=== PATIENT | male | born 1955 | race Two or more races ===

== ENCOUNTER 2017-08-31 08:48 | Inpatient (IN) | payer OTHER ==
[2017-08-31 09:43] VITALS: BMI 23.4
--- NOTE | 2017-08-31 13:04 | HP ---
CIWA Score - CIWA Score Nausea/Vomitin (N/V/D) Muscle Tremors: 4-Moderate,w/Arms Extend Anxiety: 4-Mod. Anxious/Guarded Agitation: 0-Normal Activity Paroxysmal Sweats: 2 Orientation: 0-Oriented Tacttile Disturbances: 3-Moderate Itch/Numb/Burn Auditory Disturbances: 0-None Visual Disturbances: 0-None Headache: 2-Mild CIWA-Ar Total Score: 20 Admission ROS S - HPI Chief Complaint: DETOX TX FOR ALCOHOL DEPENDENCE Allergies/Adverse Reactions: Allergies Allergy/AdvReac Type Severity Reaction Status Date / Time No Known Allergies Allergy Verified 08/31/17 10:55 History of Present Illness: 62 Y/O H/M WITH A HX OF ALCOHOL DEPENDENCE SEEKING DETOX TX. PT IS ON MMTP. Exam Limitations: No Limitations - Ebola screening Have you traveled outside of the country in the last 21 days: No Have you had contact with anyone from an Ebola affected area: No Have you been sick,other than usual withdrawal symptoms: No - Review of Systems Constitutional: Chills, Loss of Appetite, Night Sweats, Changes in sleep, Unintentional Wgt. Loss EENT: reports: Blurred Vision, Tearing, Nose Congestion, Dental Problems ( MISSING TEETH) Respiratory: reports: No Symptoms reported Cardiac: reports: Lightheadedness GI: reports: Constipated, Diarrhea, Nausea, Poor Appetite, Poor Fluid Intake, Vomiting : reports: No Symptoms Reported Musculoskeletal: reports: Back Pain, Muscle Pain, Neck Pain Integumentary: reports: Dryness (AND SCALY FEET.) Neuro: reports: Headache, Numbness, Tingling, Tremors, Unsteady Gait, Dizziness Endocrine: reports: No Symptoms Reported Hematology: reports: No Symptoms Reported Psychiatric: reports: Orientated x3, Anxious, Depressed Other Systems: Reviewed and Negative Patient History - Patient Medical History Hx Anemia: No Hx Asthma: No Hx Chronic Obstructive Pulmonary Disease (COPD): No Hx Cardiac Disorders: No Hx Hypertension: Yes (FORGOT NAME) Hx Hypercholesterolemia: No HX Cerebrovascular Accident: No Hx Seizures: No Hx Diabetes: No Hx Gastrointestinal Disorders: No Hx Genitourinary Disorders: No Hx Sexually Transmitted Disorders: No (DENIES) Hx Renal Disease (ESRD): No Hx Human Immunodeficiency Virus (HIV): No (NEGATIVE HX) Hx Hepatitis C: Yes (NOT TREATED) Hx Depression: Yes (NOT CURRENTLY ON MED) Hx Suicide Attempt: No (DENIES) Hx Bipolar Disorder: No Hx Schizophrenia: No - Patient Surgical History Past Surgical History: Yes Hx Neurologic Surgery: No Hx Cataract Extraction: No Hx Cardiac Surgery: No Hx Lung Surgery: No Hx Breast Surgery: No Hx Breast Biopsy: No Hx Abdominal Surgery: Yes (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 in [facility].) Hx Appendectomy: No Hx Cholecystectomy: No Hx Genitourinary Surgery: No Hx Orthopedic Surgery: No Anesthesia Reaction: No - PPD History Previous Implant?: Yes Documented Results: Negative w/o proof Implanted On Prior [facility] Admission?: Yes Date: 04/15/12 Results: 0 mm PPD to be Administered?: Yes - Reproductive History Patient is a Female of Child Bearing Age (11 -55 yrs old): No (MALE) Patient : (N/A) - Smoking Cessation Smoking history: Current every day smoker Have you smoked in the past 12 months: Yes Aproximately how many cigarettes per day: 10 Cigars Per Day: 0 Hx Chewing Tobacco Use: No Initiated information on smoking cessation: Yes 'Breaking Loose' booklet given: 08/31/17 - Substance & Tx. History Hx Alcohol Use: Yes (VODKA/BEER) Hx Substance Use: No Substance Use Type: Alcohol Hx Substance Use Treatment: Yes (CURRENTLY IN [facility]) - Substances Abused Alcohol Route: Oral Frequency: Daily Amount used: 2 pints vodka/ 3 6pk beers Age of first use: 15 Date of Last Use: 08/31/17 Family Disease History - Family Disease History Family History: Denies Admission Physical Exam [facility] - Vital Signs Vital Signs: Vital Signs - 24 hr 08/31/17 09:41 Temperature 97.3 F L Pulse Rate 84 Respiratory 18 Rate Blood Pressure 160/109 - Physical General Appearance: Yes: Moderate Distress, Irritable, Anxious HEENTM: Yes: EOMI, Normocephalic, LORAINE, Pharynx Normal Respiratory: Yes: Chest Non-Tender, Lungs Clear, Normal Breath Sounds, No Respiratory Distress Neck: Yes: No masses,lesions,Nodules, Supple, Trachea in good position Breast: Yes: Breast Exam Deferred Cardiology: Yes: Regular Rhythm, Regular Rate, S1, S2 Abdominal: Yes: Normal Bowel Sounds, Non Tender, Soft Genitourinary: Yes: Other (N/C) Back: Yes: Within Normal Limits Musculoskeletal: Yes: full range of Motion, Gait Steady Extremities: Yes: Normal Range of Motion, Non-Tender Neurological: Yes: fire pilot II-XII NML intact, Fully Oriented, Alert, Motor Strength 5/5 Integumentary: Yes: Dry, Warm, Rash (DRY SCALY FEET-FOOT RASH) Lymphatic: Yes: Within Normal Limits - Diagnostic (1) Hepatitis C carrier Current Visit: Yes Status: Chronic (2) Nicotine dependence Current Visit: Yes Status: Active (3) Methadone maintenance therapy patient Current Visit: Yes Status: Chronic (4) Hypertension Current Visit: Yes Status: Chronic Qualifiers: Hypertension type: essential hypertension Qualified Code(s): I10 - Essential (primary) hypertension; I10 - Essential (primary) hypertension; I10 - Essential (primary) hypertension Comment: FORGOT NAME OF MEDICINE BUT LAST TOOK IT LAST WEEK. SEES DR CALVERT AT [facility](NOW [facility]). (5) Tinea pedis Current Visit: Yes Status: Chronic Qualifiers: Laterality: bilateral Qualified Code(s): B35.3 - Tinea pedis; B35.3 - Tinea pedis Cleared for Admission [facility] - Detox or Rehab [facility] Level of Care: Medically Managed Detox Regimen/Protocol: Librium [facility] Breath Alcohol Content Breath Alcohol Content: 0 Urine Drug Screen - Results Drug Screen Negative: No Urine Drug Screen Results: MTD-Methadone
[2017-08-31] MEDS ORDERED: MAGNESIUM HYDROX 2400MG/30ML ORAL SUSPENSION 30 ML CUP PO PRN (13:16)
[2017-08-31] MEDS ORDERED: ACETAMINOPHEN 325 MG TABLET (FP) PO PRN (13:16)
[2017-08-31] MEDS ORDERED: MAGNESIUM CITRATE 300 ML BOTTLE PO PRN (13:16)
[2017-08-31] MEDS ORDERED: guaiFENesin/D-METHORPHAN HB 10 ML UNIT-DOSE CUPS PO PRN (13:16)
[2017-08-31] MEDS ORDERED: LOPERAMIDE HCL 2 MG CAPSULE PO PRN (13:16)
[2017-08-31] MEDS ORDERED: P-EPHED 60MG/TRIPROLIDI 2.5MG TABLET PO PRN (13:16)
[2017-08-31] MEDS ORDERED: IBUPROFEN 400 MG TABLET (FP) PO PRN (13:16)
[2017-08-31] MEDS ORDERED: MENTHOL/PHENOL 1 EACH UD MM PRN (13:16)
[2017-08-31] MEDS ORDERED: NICOTINE POLACRILEX 2 MG GUM BUC PRN (13:16)
[2017-08-31] MEDS ORDERED: MAG HYDROX/AL HYDROX/SIMETH 30 ML UNIT-DOSE CUP PO PRN (13:16)
[2017-08-31] MEDS ORDERED: chlordiazePOXIDE HCL 25 MG CAPSULE PO PRN (13:16)
[2017-08-31] MEDS ORDERED: hydrOXYzine PAMOATE 25 MG CAPSULE (FP) PO PRN (13:16)
[2017-08-31] MEDS ORDERED: METHADONE HCL 10 MG TABLET PO ONE (14:00)
[2017-08-31] MEDS ORDERED: chlordiazePOXIDE HCL 25 MG CAPSULE PO ONE (14:00)
[2017-08-31] MEDS: amLODIPine BESYLATE 10 MG TABLET (FP) PO SCH (14:11)
[2017-08-31] MEDS: NICOTINE 14 MG/24 HOURS TOPICAL PATCH TD SCH (15:03)
--- NOTE | 2017-08-31 15:05 | CONSULT ---
[facility] Psychiatric Consult - Data Date of interview: 08/31/17 Admission source: [facility] Identifying data: Readmission to [facility] for this 62 y/o male seeking detox treatment on for alcohol dependence.Patient is , a father of two,undomiciled,unemployed and supported on SSI benefits. Substance Abuse History: Smoking history: Current every day smoker. Have you smoked in the past 12 months: Yes. Aproximately how many cigarettes per day: 10. Cigars Per Day: 0. Hx Chewing Tobacco Use: No. Initiated information on smoking cessation: Yes. 'Breaking Loose' booklet given: 08/31/17. - Substance & Tx. History. Hx Alcohol Use: Yes (VODKA/BEER). Hx Substance Use: No. Substance Use Type: Alcohol. Hx Substance Use Treatment: Yes (CURRENTLY IN [facility]). - Substances Abused. Alcohol. Route: Oral. Frequency: Daily. Amount used: 2 pints vodka/ 3 6pk beers. Age of first use: 15. Date of Last Use: 08/31/17 Medical History: Hypertension and hepatitis C. Psychiatric History: No history of psychiatric hospitalizations.Patient endorses MDD and Anxiety Disorder.Followed at [facility] (methadone maintenance : 50 mg/day).Patient is currently on seroquel 50 mg po hs.He denies history of suicide attempts. Physical/Sexual Abuse/Trauma History: Patient denies. Additional Comment: Drug Screen is negative. Mental Status Exam - Mental Status Exam Alert and Oriented to: Time, Place, Person Cognitive Function: Good Patient Appearance: Well Groomed Mood: Hopeful, Euthymic Affect: Appropriate, Normal Range Patient Behavior: Appropriate, Cooperative Speech Pattern: Clear (japanese-fluent) Voice Loudness: Normal Thought Process: Intact, Goal Oriented Thought Disorder: Not Present Hallucinations: Denies Suicidal Ideation: Denies Homicidal Ideation: Denies Insight/Judgement: Poor Sleep: Poorly, Difficulty falling asleep Appetite: Good Muscle strength/Tone: Normal Gait/Station: Normal Psychiatric Findings - Problem List ([place] 1, 2,3) (1) Opioid dependence on agonist therapy Current Visit: Yes Status: Acute (2) Alcohol dependence Current Visit: Yes Status: Active (3) Nicotine dependence Current Visit: Yes Status: Active (4) Substance induced mood disorder Current Visit: Yes Status: Acute (5) Hepatitis C carrier Current Visit: Yes Status: Chronic (6) Hypertension Current Visit: Yes Status: Chronic Qualifiers: Hypertension type: essential hypertension Qualified Code(s): I10 - Essential (primary) hypertension; I10 - Essential (primary) hypertension; I10 - Essential (primary) hypertension Comment: FORGOT NAME OF MEDICINE BUT LAST TOOK IT LAST WEEK. SEES DR CALVERT AT [facility](NOW [facility]). (7) Insomnia Current Visit: Yes Status: Acute - Initial Treatment Plan Initial Treatment Plan: Psychoeducation.Detoxification.Seroquel 50 mg po hs.Side effects/benefits are discussed with the patient.He agrees with this careplan.Observation.
[2017-08-31 16:11] LABS: MCHC 34.6 g/dl (32.0-35.9); MEAN CELL VOLUME 95.3 fl (80-96); MEAN PLT VOLUME 7.7 fl (7.5-11.1); PLATELET COUNT 310 K/MM3 (134-434); RDW 15.5 % (11.9-15.9); WHITE BLOOD COUNT 4.7 K/mm3 (4.0-10.0)
[2017-08-31 16:42] LABS: ALBUMIN 3.6 g/dl (3.4-5.0); ANION GAP 10 (8-16); CALCIUM 8.5 mg/dL (8.5-10.1); CO2 26 mmol/L (21-32); GLUCOSE,RANDOM 75 mg/dL (74-106); SGPT/ALT 38 U/L (12-78)
[2017-08-31 16:46] LABS: ALK PHOS 149 U/L (45-117); BILIRUBIN,TOTAL 0.3 mg/dL (0.2-1.0); CREATININE 0.9 mg/dL (0.7-1.3); SGOT/AST 60 U/L (15-37); TOT PROT 8.7 g/dl (6.4-8.2)
[2017-08-31 17:12] LABS: URINE APPEARANCE CLEAR; URINE BILIRUBIN NEGATIVE (NEGATIVE); URINE BLOOD NEGATIVE (NEGATIVE); URINE COLOR STRAW; URINE GLUCOSE (UA) NEGATIVE (NEGATIVE); URINE KETONE NEGATIVE (NEGATIVE); URINE NITRITE NEGATIVE (NEGATIVE); URINE PROTEIN NEGATIVE (NEGATIVE); URINE UROBILINOGEN NEGATIVE mg/dL (0.2-1.0)
[2017-08-31] MEDS: chlordiazePOXIDE HCL 25 MG CAPSULE PO SCH ×2 (17:25→22:16)
[2017-08-31] MEDS: TOLNAFTATE 1% CREAM 15 GM TUBE TP SCH (22:15)
[2017-08-31] MEDS: THIAMINE HCL 100 MG TABLET (FP) PO SCH (22:16)
[2017-08-31 22:21] LABS: URINE LEUK ESTERASE Negative (NEGATIVE)
--- NOTE | 2017-08-31 22:42 | PN ---
S Progress Note Note: patient feel nausea,zofran sl ordered,continue monitoring and detox regimen
[2017-08-31] MEDS: ONDANSETRON *ODT* 4 MG TABLET SL PRN (22:52)
[2017-09-01] MEDS ORDERED: METHADONE HCL 40 MG DISPERSABLE TABLET ONE (05:17)
[2017-09-01] MEDS ORDERED: METHADONE HCL 10 MG TABLET ONE (05:17)
[2017-09-01] MEDS ORDERED: METHADONE HCL 10 MG TABLET PO SCH (06:00)
[2017-09-01] MEDS: chlordiazePOXIDE HCL 25 MG CAPSULE PO SCH ×4 (06:26→22:16)
[2017-09-01] MEDS: METHADONE 40 MG, METHADONE 10 MG PO SCH (06:27)
[2017-09-01] MEDS: ONDANSETRON *ODT* 4 MG TABLET SL PRN (09:12)
[2017-09-01] MEDS ORDERED: cloNIDine HCL 0.1 MG TABLET PO ONE (09:30)
[2017-09-01] MEDS: TOLNAFTATE 1% CREAM 15 GM TUBE TP SCH ×2 (10:28→22:15)
[2017-09-01] MEDS: NICOTINE 14 MG/24 HOURS TOPICAL PATCH TD SCH (10:28)
[2017-09-01] MEDS: amLODIPine BESYLATE 10 MG TABLET (FP) PO SCH (10:28)
[2017-09-01] MEDS: PRENATAL VITAMINS W/ FOLIC ACID TABLET (FP) PO SCH (10:28)
--- NOTE | 2017-09-01 12:12 | PN ---
S CIWA - CIWA Score Nausea/Vomitin Muscle Tremors: 3 Anxiety: 5 Agitation: 4-Moderately Restless Paroxysmal Sweats: 3 Orientation: 2-Disoriented Date<2 days Tacttile Disturbances: 0-None Auditory Disturbances: 0-None Visual Disturbances: 0-None Headache: 3-Moderate CIWA-Ar Total Score: 25 S Progress Note (SOAP) Subjective: Sweating, Vomiting, Body Aches, Chills, Tremors, H/A, Anxious. Objective: PT. A & O X 2 (DISORIENTED ABOUT DAY / DATE). PT. OBSERVED AMBULATING ON UNIT. NO ACUTE DISTRESS. PT. DENIES CHEST PAIN. 09/01/17 12:13 Vital Signs Temperature 97.1 F L 09/01/17 09:42 Pulse Rate 70 09/01/17 09:42 Respiratory Rate 18 09/01/17 09:42 Blood Pressure 128/67 09/01/17 09:42 O2 Sat by Pulse Oximetry (%) Laboratory Tests 08/31/17 08/31/17 08/31/17 13:20 13:20 15:30 WBC 4.7 RBC 3.91 L Hgb 12.9 D Hct 37.3 MCV 95.3 MCH 33.0 MCHC 34.6 RDW 15.5 D Plt Count 310 D MPV 7.7 Sodium 137 Potassium 4.5 Chloride 101 Carbon Dioxide 26 Anion Gap 10 BUN 14 D Creatinine 0.9 D Creat Clearance w eGFR > 60 Random Glucose 75 D Calcium 8.5 Total Bilirubin 0.3 D AST 60 H D ALT 38 D Alkaline Phosphatase 149 H D Total Protein 8.7 H Albumin 3.6 Urine Color Straw Urine Appearance Clear Urine pH 5.0 Ur Specific [place] 1.010 Urine Protein Negative Urine Glucose (UA) Negative Urine Ketones Negative Urine Blood Negative Urine Nitrite Negative Urine Bilirubin Negative Urine Urobilinogen Negative Ur Leukocyte Esterase Negative LABS NOTED. RPR RESULT PENDING. 09/01/17 12:15 Assessment: 09/01/17 12:14 WITHDRAWAL SYMPTOMS. Plan: CONTINUE DETOX. PRN ZOFRAN SL FOR NAUSEA / VOMITING. CLONIDINE, 0.1 MG PO FOR DETOX SYMPTOMS. INCREASE DAILY PO FLUID INTAKE. REPEAT AP TOMORROW FOR ELEVATED ADMISSION VALUE.
--- NOTE | 2017-09-01 20:33 | EKG ---
Test Reason : Blood Pressure : / mmHG Vent. Rate : 066 BPM Atrial Rate : 066 BPM P-R Int : 144 ms QRS Dur : 072 ms QT Int : 384 ms P-R-T Axes : 053 041 035 degrees QTc Int : 402 ms NORMAL SINUS RHYTHM SEPTAL INFARCT , AGE UNDETERMINED CANNOT BE EXCLUDED ABNORMAL ECG NO PREVIOUS ECGS AVAILABLE Confirmed by RICO CALLES MD ([id number]) on 09/01/2017 8:33:40 PM Referred By: Confirmed By:RICO CALLES MD
[2017-09-01] MEDS: THIAMINE HCL 100 MG TABLET (FP) PO SCH (22:15)
[2017-09-01] MEDS: diphenhydrAMINE HCL 50 MG CAPSULE PO PRN (22:16)
[2017-09-02] MEDS ORDERED: METHADONE HCL 10 MG TABLET ONE (03:56)
[2017-09-02] MEDS ORDERED: METHADONE HCL 40 MG DISPERSABLE TABLET ONE (03:57)
[2017-09-02] MEDS: METHADONE 40 MG, METHADONE 10 MG PO SCH (06:17)
[2017-09-02] MEDS: chlordiazePOXIDE HCL 25 MG CAPSULE PO SCH ×2 (06:17→10:51)
[2017-09-02] MEDS: NICOTINE 14 MG/24 HOURS TOPICAL PATCH TD SCH (10:51)
[2017-09-02] MEDS: TOLNAFTATE 1% CREAM 15 GM TUBE TP SCH ×2 (10:51→22:26)
[2017-09-02] MEDS: PRENATAL VITAMINS W/ FOLIC ACID TABLET (FP) PO SCH (10:51)
[2017-09-02] MEDS: amLODIPine BESYLATE 10 MG TABLET (FP) PO SCH (10:51)
--- NOTE | 2017-09-02 11:19 | PN ---
[facility] CIWA - CIWA Score Nausea/Vomitin-No Nausea/No Vomiting Muscle Tremors: 4-Moderate,w/Arms Extend Anxiety: 4-Mod. Anxious/Guarded Agitation: 4-Moderately Restless Paroxysmal Sweats: 1-Minimal Palms Moist Orientation: 0-Oriented Tacttile Disturbances: 3-Moderate Itch/Numb/Burn Auditory Disturbances: 0-None Visual Disturbances: 0-None Headache: 0-None Present CIWA-Ar Total Score: 16 BHS Progress Note (SOAP) Subjective: ANXIETY,SWEATS,IRRITABILITY. PT REPORTS VOMITING YESTERDAY BUT DENIES TODAY. Objective: 09/02/17 11:15 Vital Signs Temperature 98.2 F 09/02/17 09:52 Pulse Rate 75 09/02/17 09:52 Respiratory Rate 18 09/02/17 09:52 Blood Pressure 154/78 09/02/17 09:52 O2 Sat by Pulse Oximetry (%) Laboratory Last Values WBC 4.7 K/mm3 (4.0-10.0) 08/31/17 13:20 RBC 3.91 M/mm3 (4.00-5.60) L 08/31/17 13:20 Hgb 12.9 GM/dL (11.7-16.9) D 08/31/17 13:20 Hct 37.3 % (35.4-49) 08/31/17 13:20 MCV 95.3 fl (80-96) 08/31/17 13:20 MCH 33.0 pg (25.7-33.7) 08/31/17 13:20 MCHC 34.6 g/dl (32.0-35.9) 08/31/17 13:20 RDW 15.5 % (11.9-15.9) D 08/31/17 13:20 Plt Count 310 K/MM3 (134-434) D 08/31/17 13:20 MPV 7.7 fl (7.5-11.1) 08/31/17 13:20 Sodium 137 mmol/L (136-145) 08/31/17 13:20 Potassium 4.5 mmol/L (3.5-5.1) 08/31/17 13:20 Chloride 101 mmol/L (98-107) 08/31/17 13:20 Carbon Dioxide 26 mmol/L (21-32) 08/31/17 13:20 Anion Gap 10 (8-16) 08/31/17 13:20 BUN 14 mg/dL (7-18) D 08/31/17 13:20 Creatinine 0.9 mg/dL (0.7-1.3) D 08/31/17 13:20 Creat Clearance w eGFR > 60 (>60) 08/31/17 13:20 Random Glucose 75 mg/dL (74-106) D 08/31/17 13:20 Calcium 8.5 mg/dL (8.5-10.1) 08/31/17 13:20 Total Bilirubin 0.3 mg/dL (0.2-1.0) D 08/31/17 13:20 AST 60 U/L (15-37) H D 08/31/17 13:20 ALT 38 U/L (12-78) D 08/31/17 13:20 Alkaline Phosphatase 149 U/L (45-117) H D 08/31/17 13:20 Total Protein 8.7 g/dl (6.4-8.2) H 08/31/17 13:20 Albumin 3.6 g/dl (3.4-5.0) 08/31/17 13:20 Urine Color Straw 08/31/17 15:30 Urine Appearance Clear 08/31/17 15:30 Urine pH 5.0 (5.0-8.0) 08/31/17 15:30 Ur Specific [place] 1.010 (1.005-1.025) 08/31/17 15:30 Urine Protein Negative (NEGATIVE) 08/31/17 15:30 Urine Glucose (UA) Negative (NEGATIVE) 08/31/17 15:30 Urine Ketones Negative (NEGATIVE) 08/31/17 15:30 Urine Blood Negative (NEGATIVE) 08/31/17 15:30 Urine Nitrite Negative (NEGATIVE) 08/31/17 15:30 Urine Bilirubin Negative (NEGATIVE) 08/31/17 15:30 Urine Urobilinogen Negative mg/dL (0.2-1.0) 08/31/17 15:30 Ur Leukocyte Esterase Negative (NEGATIVE) 08/31/17 15:30 RPR Titer Nonreactive (NONREACTIVE) 08/31/17 13:20 Assessment: 09/02/17 11:15 WITHDRAWAL SX Plan: CONTINUE DETOX
[2017-09-02] MEDS: chlordiazePOXIDE 5 MG CAPSULE PO SCH ×2 (17:28→22:06)
[2017-09-02] MEDS: diphenhydrAMINE HCL 50 MG CAPSULE PO PRN (22:06)
[2017-09-02] MEDS: THIAMINE HCL 100 MG TABLET (FP) PO SCH (22:06)
[2017-09-03] MEDS ORDERED: METHADONE HCL 10 MG TABLET ONE (04:03)
[2017-09-03] MEDS ORDERED: METHADONE HCL 40 MG DISPERSABLE TABLET ONE (04:03)
[2017-09-03] MEDS: chlordiazePOXIDE 5 MG CAPSULE PO SCH ×2 (05:59→10:49)
[2017-09-03] MEDS: METHADONE 40 MG, METHADONE 10 MG PO SCH (06:00)
[2017-09-03] MEDS: amLODIPine BESYLATE 10 MG TABLET (FP) PO SCH (10:49)
[2017-09-03] MEDS: NICOTINE 14 MG/24 HOURS TOPICAL PATCH TD SCH (10:49)
[2017-09-03] MEDS: ONDANSETRON *ODT* 4 MG TABLET SL PRN (10:49)
[2017-09-03] MEDS: PRENATAL VITAMINS W/ FOLIC ACID TABLET (FP) PO SCH (10:49)
--- NOTE | 2017-09-03 10:49 | PN ---
BHS Progress Note (SOAP) Subjective: DECREASED ANXIETY,SWEATS. ALERT O X 3. NAD. Objective: 09/03/17 10:48 Vital Signs Temperature 98.2 F 09/03/17 09:18 Pulse Rate 76 09/03/17 09:18 Respiratory Rate 16 09/03/17 09:18 Blood Pressure 115/72 09/03/17 09:18 O2 Sat by Pulse Oximetry (%) Laboratory Last Values WBC 4.7 K/mm3 (4.0-10.0) 08/31/17 13:20 RBC 3.91 M/mm3 (4.00-5.60) L 08/31/17 13:20 Hgb 12.9 GM/dL (11.7-16.9) D 08/31/17 13:20 Hct 37.3 % (35.4-49) 08/31/17 13:20 MCV 95.3 fl (80-96) 08/31/17 13:20 MCH 33.0 pg (25.7-33.7) 08/31/17 13:20 MCHC 34.6 g/dl (32.0-35.9) 08/31/17 13:20 RDW 15.5 % (11.9-15.9) D 08/31/17 13:20 Plt Count 310 K/MM3 (134-434) D 08/31/17 13:20 MPV 7.7 fl (7.5-11.1) 08/31/17 13:20 Sodium 137 mmol/L (136-145) 08/31/17 13:20 Potassium 4.5 mmol/L (3.5-5.1) 08/31/17 13:20 Chloride 101 mmol/L (98-107) 08/31/17 13:20 Carbon Dioxide 26 mmol/L (21-32) 08/31/17 13:20 Anion Gap 10 (8-16) 08/31/17 13:20 BUN 14 mg/dL (7-18) D 08/31/17 13:20 Creatinine 0.9 mg/dL (0.7-1.3) D 08/31/17 13:20 Creat Clearance w eGFR > 60 (>60) 08/31/17 13:20 Random Glucose 75 mg/dL (74-106) D 08/31/17 13:20 Calcium 8.5 mg/dL (8.5-10.1) 08/31/17 13:20 Total Bilirubin 0.3 mg/dL (0.2-1.0) D 08/31/17 13:20 AST 60 U/L (15-37) H D 08/31/17 13:20 ALT 38 U/L (12-78) D 08/31/17 13:20 Alkaline Phosphatase 155 U/L (45-117) H 09/02/17 07:00 Total Protein 8.7 g/dl (6.4-8.2) H 08/31/17 13:20 Albumin 3.6 g/dl (3.4-5.0) 08/31/17 13:20 Urine Color Straw 08/31/17 15:30 Urine Appearance Clear 08/31/17 15:30 Urine pH 5.0 (5.0-8.0) 08/31/17 15:30 Ur Specific [place] 1.010 (1.005-1.025) 08/31/17 15:30 Urine Protein Negative (NEGATIVE) 08/31/17 15:30 Urine Glucose (UA) Negative (NEGATIVE) 08/31/17 15:30 Urine Ketones Negative (NEGATIVE) 08/31/17 15:30 Urine Blood Negative (NEGATIVE) 08/31/17 15:30 Urine Nitrite Negative (NEGATIVE) 08/31/17 15:30 Urine Bilirubin Negative (NEGATIVE) 08/31/17 15:30 Urine Urobilinogen Negative mg/dL (0.2-1.0) 08/31/17 15:30 Ur Leukocyte Esterase Negative (NEGATIVE) 08/31/17 15:30 RPR Titer Nonreactive (NONREACTIVE) 08/31/17 13:20 Assessment: 09/03/17 10:48 DECREASED WITHDRAWAL SX Plan: CONTINUE DETOX
[2017-09-03] MEDS: TOLNAFTATE 1% CREAM 15 GM TUBE TP SCH ×2 (11:05→22:42)
[2017-09-03] MEDS: chlordiazePOXIDE HCL 10 MG CAPSULE PO SCH ×2 (17:11→22:13)
[2017-09-03] MEDS: THIAMINE HCL 100 MG TABLET (FP) PO SCH (22:13)
[2017-09-03] MEDS: diphenhydrAMINE HCL 50 MG CAPSULE PO PRN (22:14)
[2017-09-04] MEDS ORDERED: METHADONE HCL 10 MG TABLET ONE (03:53)
[2017-09-04] MEDS ORDERED: METHADONE HCL 40 MG DISPERSABLE TABLET ONE (03:54)
[2017-09-04] MEDS: chlordiazePOXIDE HCL 10 MG CAPSULE PO SCH ×2 (05:42→10:57)
[2017-09-04] MEDS: METHADONE 40 MG, METHADONE 10 MG PO SCH (05:42)
--- NOTE | 2017-09-04 08:29 | DS ---
[facility] Detox Discharge Summary Admission Date: 08/31/17 Discharge Date: 09/04/17 - History Present History: Alcohol Dependence, MMTP Pertinent Past History: nicotine dependence, anxiety, insominia, depression, ehp c htn - Physical Exam Results Vital Signs: Vital Signs Temperature 96.9 F L 09/04/17 06:12 Pulse Rate 81 09/04/17 06:12 Respiratory Rate 16 09/04/17 06:12 Blood Pressure 153/82 09/04/17 06:12 O2 Sat by Pulse Oximetry (%) Pertinent Admission Physical Exam Findings: withdrawal sx - Treatment Hospital Course: Detox Protocol Followed, Detoxed Safely, Responded well, Discharged Condition Good, Rehab Referral Accepted Patient has Accepted a Rehab Referral to: return to [facility] y - Medication Discharge Medications: Ambulatory Orders Amlodipine Besylate [Norvasc -] 10 mg PO DAILY 08/31/17 - Diagnosis (1) Alcohol dependence Current Visit: Yes Status: Active (2) Nicotine dependence Current Visit: Yes Status: Active (3) Insomnia Current Visit: Yes Status: Acute (4) Opioid dependence on agonist therapy Current Visit: Yes Status: Acute (5) Substance induced mood disorder Current Visit: Yes Status: Acute (6) Hepatitis C carrier Current Visit: Yes Status: Chronic (7) Hypertension Current Visit: Yes Status: Chronic Qualifiers: Hypertension type: essential hypertension Qualified Code(s): I10 - Essential (primary) hypertension; I10 - Essential (primary) hypertension; I10 - Essential (primary) hypertension (8) Methadone maintenance therapy patient Current Visit: Yes Status: Chronic (9) Tinea pedis Current Visit: Yes Status: Chronic Qualifiers: Laterality: bilateral Qualified Code(s): B35.3 - Tinea pedis; B35.3 - Tinea pedis - AMA Did Patient Leave Against Medical Advice: No
[2017-09-04] MEDS: PRENATAL VITAMINS W/ FOLIC ACID TABLET (FP) PO SCH (10:29)
[2017-09-04] MEDS: NICOTINE 14 MG/24 HOURS TOPICAL PATCH TD SCH (10:29)
[2017-09-04] MEDS: TOLNAFTATE 1% CREAM 15 GM TUBE TP SCH (10:29)
[2017-09-04] MEDS: amLODIPine BESYLATE 10 MG TABLET (FP) PO SCH (10:30)
[2017-09-04 10:34] VITALS: BP 127/73; PULSE 74; TEMP 97.7
[2017-09-04] MEDS ORDERED: CYCLOBENZAPRINE HCL 10 MG TABLET (FP) PO SCH (14:00)
== END 2017-09-04 03:05 | disposition other institution (70) | DRG 773 ==
LOC: YASAS 08:48 → Y3N 12:11
PROVIDERS: ADMIT Internal Medicine; ATTEND Internal Medicine
PROC: HZ2ZZZZ Detoxification Services for Substance Abuse Treatment (ICD-10-PCS; principal; 2017-08-31)
DX: F10.230 Alcohol dependence with withdrawal, uncomplicated (principal); F11.20 Opioid dependence, uncomplicated; F17.210 Nicotine dependence, cigarettes, uncomplicated; F19.24 Other psychoactive substance dependence with psychoactive substance-induced mood disorder; I10 Essential (primary) hypertension; G47.00 Insomnia, unspecified; B18.2 Chronic viral hepatitis C; B35.3 Tinea pedis
CPT/HCPCS: 36415; 71020-TC; 80053; 81003; 84075; 85027; 86593; 93005; 93010

== ENCOUNTER 2017-09-04 14:53 | Inpatient (IN) | payer OTHER ==
[2017-09-04] MEDS ORDERED: MENTHOL/PHENOL 1 EACH UD MM PRN (15:52)
[2017-09-04] MEDS ORDERED: MAGNESIUM CITRATE 300 ML BOTTLE PO PRN (15:52)
[2017-09-04] MEDS ORDERED: P-EPHED 60MG/TRIPROLIDI 2.5MG TABLET PO PRN (15:52)
[2017-09-04] MEDS ORDERED: guaiFENesin/D-METHORPHAN HB 10 ML UNIT-DOSE CUPS PO PRN (15:52)
[2017-09-04] MEDS ORDERED: NICOTINE POLACRILEX 2 MG GUM BUC PRN (15:52)
[2017-09-04] MEDS ORDERED: LOPERAMIDE HCL 2 MG CAPSULE PO PRN (15:52)
--- NOTE | 2017-09-04 15:57 | HP ---
[facility] Rehab Assess/Revision - Admission History Admitted to Rehab from: [facility] - Vital signs Vital Signs: T 98.3F BP 115/67 P 79 R 18 - Findings Detox History & Physical reviewed: Yes Concur with findings: Yes Inpatient Rehab Admission - Initial Determination Are CD services needed?: Yes Free of communicable disease: Yes Not in need of hospitalization: Yes - Rehab Admission Criteria Previous failed treatment: Yes Poor recovery environment: Yes Lacks judgement: Yes Patient is meeting Inpatient Rehab admission criteria:: Yes
[2017-09-04] MEDS: THIAMINE HCL 100 MG TABLET (FP) PO SCH (21:42)
[2017-09-04] MEDS: QUEtiapine FUMARATE 50 MG TABLET PO SCH (21:42)
[2017-09-05] MEDS ORDERED: METHADONE HCL 10 MG TABLET PO SCH (06:00)
[2017-09-05] MEDS ORDERED: METHADONE HCL 40 MG DISPERSABLE TABLET ONE (07:14)
[2017-09-05] MEDS ORDERED: METHADONE HCL 10 MG TABLET ONE (07:14)
[2017-09-05] MEDS: METHADONE 40 MG, METHADONE 10 MG PO SCH (07:15)
[2017-09-05] MEDS: PRENATAL VITAMINS W/ FOLIC ACID TABLET (FP) PO SCH (10:41)
[2017-09-05] MEDS: amLODIPine BESYLATE 10 MG TABLET (FP) PO SCH (10:41)
[2017-09-05] MEDS: QUEtiapine FUMARATE 50 MG TABLET PO SCH (22:09)
[2017-09-05] MEDS: THIAMINE HCL 100 MG TABLET (FP) PO SCH (22:09)
[2017-09-06] MEDS ORDERED: METHADONE HCL 10 MG TABLET ONE (03:16)
[2017-09-06] MEDS ORDERED: METHADONE HCL 40 MG DISPERSABLE TABLET ONE (03:17)
[2017-09-06] MEDS: METHADONE 40 MG, METHADONE 10 MG PO SCH (06:43)
[2017-09-06] MEDS: PRENATAL VITAMINS W/ FOLIC ACID TABLET (FP) PO SCH (10:21)
[2017-09-06] MEDS: amLODIPine BESYLATE 10 MG TABLET (FP) PO SCH (10:21)
[2017-09-06] MEDS: ACETAMINOPHEN 325 MG TABLET (FP) PO PRN (20:44)
[2017-09-06] MEDS: THIAMINE HCL 100 MG TABLET (FP) PO SCH (21:46)
[2017-09-06] MEDS: QUEtiapine FUMARATE 50 MG TABLET PO SCH (21:46)
[2017-09-07] MEDS ORDERED: METHADONE HCL 40 MG DISPERSABLE TABLET ONE (05:32)
[2017-09-07] MEDS ORDERED: METHADONE HCL 10 MG TABLET ONE (05:32)
[2017-09-07] MEDS: METHADONE 40 MG, METHADONE 10 MG PO SCH (06:27)
--- NOTE | 2017-09-07 10:29 | HP ---
Psychiatrist Admission - Data Date of interview: 09/07/17 Admission source: Transfer from [address] [place] [address] Identifying data: First admission to [address] for this 62 y/o male seeking rehabilitation treatment for alcohol dependence.Patient is ,a father of two,undomiciled,unemployed and supported on SSI benefits. Medical History: Hypertension,hepatitis C,lower back pain and arthritis (both hands). Psychiatric History: No history of psychiatric hospitalizations.Patient indicates that he sought psychiatric care as early as 2000 to address depression and anxiety.Used to be on lexapro and trazodone.Diagnosed with MDD.endorses MDD.Mr Phelps is currently under the care of Dr Chavarria,staff psychiatrist at [facility].Maintained on methadone 50 mg/day + seroquel 50 mg/ hs.Patient denies history of suicide attempts. Physical/Sexual Abuse/Trauma History: No reported history of abuse. Vital Signs: Vital Signs - 24 hr 09/07/17 09/07/17 09/07/17 00:30 03:30 07:11 Temperature 97.4 F L Pulse Rate 81 Respiratory 16 16 18 Rate Blood Pressure 132/80 Allergies/Adverse Reactions: Allergies Allergy/AdvReac Type Severity Reaction Status Date / Time No Known Allergies Allergy Verified 09/04/17 15:57 - Substance Abuse/Tx History Hx Alcohol Use: Yes (3 pints of vodka/day;onset/age 15;2x6 pack/beer;last use was on 08/31/17) Hx Substance Use: Yes (heroin,alcohol and nicotine) Substance Use Type: Alcohol, Heroin Hx Substance Use Treatment: Yes Mental Status Exam - Mental Status Exam Alert and Oriented to: Time, Place, Person Cognitive Function: Good Patient Appearance: Well Groomed Mood: Anxious, Apprehensive Affect: Mood Congruent Patient Behavior: Talkative, Appropriate, Cooperative Speech Pattern: Clear, Appropriate Voice Loudness: Normal Thought Process: Intact, Goal Oriented Thought Disorder: Not Present Hallucinations: Denies Suicidal Ideation: Denies Homicidal Ideation: Denies Insight/Judgement: Poor Sleep: Poorly, Difficulty falling asleep Appetite: Good Muscle strength/Tone: Normal Gait/Station: Normal Psychiatric Findings - Problem List ([place] 1, 2,3) (1) Alcohol dependence Current Visit: Yes Status: Active (2) Opioid dependence on agonist therapy Current Visit: Yes Status: Acute (3) Nicotine dependence Current Visit: Yes Status: Active (4) Substance induced mood disorder Current Visit: Yes Status: Acute (5) Depressive disorder Current Visit: Yes Status: Suspected (6) Hepatitis C carrier Current Visit: Yes Status: Chronic (7) Hypertension Current Visit: Yes Status: Chronic Qualifiers: Hypertension type: essential hypertension Qualified Code(s): I10 - Essential (primary) hypertension; I10 - Essential (primary) hypertension; I10 - Essential (primary) hypertension Comment: FORGOT NAME OF MEDICINE BUT LAST TOOK IT LAST WEEK. SEES DR CALVERT AT [facility](NOW [facility]). (8) Insomnia Current Visit: Yes Status: Acute - Initial Treatment Plan Initial Treatment Plan: Continue psychoeducation and support.Medications : seroquel 50 mg po hs + lexapro 5 mg po daily (started today).Side effects/ benefits are discussed with the patient.Mr Phelps is in agreement with this careplan.Observation.
[2017-09-07] MEDS: PRENATAL VITAMINS W/ FOLIC ACID TABLET (FP) PO SCH (10:31)
[2017-09-07] MEDS: amLODIPine BESYLATE 10 MG TABLET (FP) PO SCH (10:52)
[2017-09-07] MEDS: ESCITALOPRAM OXALATE 10 MG TABLET (FP) PO SCH (12:03)
[2017-09-07] MEDS: MAG HYDROX/AL HYDROX/SIMETH 30 ML UNIT-DOSE CUP PO PRN (12:05)
[2017-09-07] MEDS: THIAMINE HCL 100 MG TABLET (FP) PO SCH (22:01)
[2017-09-07] MEDS: QUEtiapine FUMARATE 50 MG TABLET PO SCH (22:01)
[2017-09-08] MEDS ORDERED: METHADONE HCL 40 MG DISPERSABLE TABLET ONE (02:26)
[2017-09-08] MEDS ORDERED: METHADONE HCL 10 MG TABLET ONE (02:26)
[2017-09-08] MEDS: METHADONE 40 MG, METHADONE 10 MG PO SCH (06:55)
[2017-09-08] MEDS: amLODIPine BESYLATE 10 MG TABLET (FP) PO SCH (10:36)
[2017-09-08] MEDS: ESCITALOPRAM OXALATE 10 MG TABLET (FP) PO SCH (10:36)
[2017-09-08] MEDS: PRENATAL VITAMINS W/ FOLIC ACID TABLET (FP) PO SCH (10:36)
[2017-09-08] MEDS ORDERED: NICOTINE POLACRILEX 2 MG GUM BUC PRN (11:27)
--- NOTE | 2017-09-08 11:38 | PN ---
[facility] Progress Note Note: started on protonix for heart burn requesting nicotine patch and gum, ordered.
[2017-09-08] MEDS: PANTOPRAZOLE 40 MG TABLET (FP) PO SCH (12:49)
[2017-09-08] MEDS: NICOTINE 14 MG/24 HOURS TOPICAL PATCH TD SCH (12:49)
[2017-09-08] MEDS: THIAMINE HCL 100 MG TABLET (FP) PO SCH (21:42)
[2017-09-08] MEDS: ACETAMINOPHEN 325 MG TABLET (FP) PO PRN (21:42)
[2017-09-08] MEDS: QUEtiapine FUMARATE 50 MG TABLET PO SCH (21:42)
[2017-09-09] MEDS ORDERED: METHADONE HCL 10 MG TABLET ONE (03:16)
[2017-09-09] MEDS ORDERED: METHADONE HCL 40 MG DISPERSABLE TABLET ONE (03:16)
[2017-09-09] MEDS: METHADONE 40 MG, METHADONE 10 MG PO SCH (06:05)
[2017-09-09] MEDS: amLODIPine BESYLATE 10 MG TABLET (FP) PO SCH (10:36)
[2017-09-09] MEDS: PRENATAL VITAMINS W/ FOLIC ACID TABLET (FP) PO SCH (10:36)
[2017-09-09] MEDS: PANTOPRAZOLE 40 MG TABLET (FP) PO SCH (10:36)
[2017-09-09] MEDS: ESCITALOPRAM OXALATE 10 MG TABLET (FP) PO SCH (10:36)
[2017-09-09] MEDS: NICOTINE 14 MG/24 HOURS TOPICAL PATCH TD SCH (10:37)
[2017-09-09] MEDS: THIAMINE HCL 100 MG TABLET (FP) PO SCH (21:17)
[2017-09-09] MEDS: QUEtiapine FUMARATE 50 MG TABLET PO SCH (21:17)
[2017-09-10] MEDS ORDERED: METHADONE HCL 10 MG TABLET ONE (03:15)
[2017-09-10] MEDS ORDERED: METHADONE HCL 40 MG DISPERSABLE TABLET ONE (03:16)
[2017-09-10] MEDS: METHADONE 40 MG, METHADONE 10 MG PO SCH (06:07)
[2017-09-10] MEDS: ESCITALOPRAM OXALATE 10 MG TABLET (FP) PO SCH (09:59)
[2017-09-10] MEDS: NICOTINE 14 MG/24 HOURS TOPICAL PATCH TD SCH (09:59)
[2017-09-10] MEDS: PRENATAL VITAMINS W/ FOLIC ACID TABLET (FP) PO SCH (09:59)
[2017-09-10] MEDS: amLODIPine BESYLATE 10 MG TABLET (FP) PO SCH (09:59)
[2017-09-10] MEDS: IBUPROFEN 400 MG TABLET (FP) PO PRN ×2 (10:00→21:11)
[2017-09-10] MEDS: PANTOPRAZOLE 40 MG TABLET (FP) PO SCH (10:15)
[2017-09-10] MEDS: THIAMINE HCL 100 MG TABLET (FP) PO SCH (21:10)
[2017-09-10] MEDS: QUEtiapine FUMARATE 50 MG TABLET PO SCH (21:10)
[2017-09-11] MEDS ORDERED: METHADONE HCL 10 MG TABLET ONE (02:33)
[2017-09-11] MEDS ORDERED: METHADONE HCL 40 MG DISPERSABLE TABLET ONE (02:34)
[2017-09-11] MEDS: METHADONE 40 MG, METHADONE 10 MG PO SCH (06:49)
[2017-09-11] MEDS: PRENATAL VITAMINS W/ FOLIC ACID TABLET (FP) PO SCH (09:40)
[2017-09-11] MEDS: amLODIPine BESYLATE 10 MG TABLET (FP) PO SCH (09:41)
[2017-09-11] MEDS: ESCITALOPRAM OXALATE 10 MG TABLET (FP) PO SCH (09:41)
[2017-09-11] MEDS: PANTOPRAZOLE 40 MG TABLET (FP) PO SCH (09:41)
[2017-09-11] MEDS: NICOTINE 14 MG/24 HOURS TOPICAL PATCH TD SCH (10:00)
[2017-09-11] MEDS: THIAMINE HCL 100 MG TABLET (FP) PO SCH (21:16)
[2017-09-11] MEDS: QUEtiapine FUMARATE 50 MG TABLET PO SCH (21:16)
[2017-09-12] MEDS ORDERED: METHADONE HCL 10 MG TABLET ONE (04:02)
[2017-09-12] MEDS ORDERED: METHADONE HCL 40 MG DISPERSABLE TABLET ONE (04:02)
[2017-09-12] MEDS: METHADONE 40 MG, METHADONE 10 MG PO SCH (06:01)
[2017-09-12] MEDS: PANTOPRAZOLE 40 MG TABLET (FP) PO SCH (09:28)
[2017-09-12] MEDS: NICOTINE 14 MG/24 HOURS TOPICAL PATCH TD SCH (09:28)
[2017-09-12] MEDS: ESCITALOPRAM OXALATE 10 MG TABLET (FP) PO SCH (09:28)
[2017-09-12] MEDS: PRENATAL VITAMINS W/ FOLIC ACID TABLET (FP) PO SCH (09:28)
[2017-09-12] MEDS: amLODIPine BESYLATE 10 MG TABLET (FP) PO SCH (09:28)
[2017-09-12] MEDS: THIAMINE HCL 100 MG TABLET (FP) PO SCH (21:09)
[2017-09-12] MEDS: QUEtiapine FUMARATE 50 MG TABLET PO SCH (21:09)
[2017-09-13] MEDS ORDERED: METHADONE HCL 10 MG TABLET ONE (05:56)
[2017-09-13] MEDS ORDERED: METHADONE HCL 40 MG DISPERSABLE TABLET ONE (05:57)
[2017-09-13] MEDS ORDERED: METHADONE HCL 40 MG DISPERSABLE TABLET PO SCH (06:00)
[2017-09-13] MEDS: METHADONE 40 MG, METHADONE 10 MG PO SCH (06:03)
[2017-09-13] MEDS: PANTOPRAZOLE 40 MG TABLET (FP) PO SCH (09:40)
[2017-09-13] MEDS: amLODIPine BESYLATE 10 MG TABLET (FP) PO SCH (09:40)
[2017-09-13] MEDS: PRENATAL VITAMINS W/ FOLIC ACID TABLET (FP) PO SCH (09:41)
[2017-09-13] MEDS: ESCITALOPRAM OXALATE 10 MG TABLET (FP) PO SCH (09:41)
[2017-09-13] MEDS: NICOTINE 14 MG/24 HOURS TOPICAL PATCH TD SCH (09:41)
[2017-09-13] MEDS: QUEtiapine FUMARATE 50 MG TABLET PO SCH (21:16)
[2017-09-13] MEDS: THIAMINE HCL 100 MG TABLET (FP) PO SCH (21:16)
[2017-09-14] MEDS ORDERED: METHADONE HCL 40 MG DISPERSABLE TABLET ONE (03:14)
[2017-09-14] MEDS ORDERED: METHADONE HCL 10 MG TABLET ONE (03:14)
[2017-09-14] MEDS: METHADONE 40 MG, METHADONE 10 MG PO SCH (06:13)
[2017-09-14] MEDS: PRENATAL VITAMINS W/ FOLIC ACID TABLET (FP) PO SCH (09:35)
[2017-09-14] MEDS: amLODIPine BESYLATE 10 MG TABLET (FP) PO SCH (09:35)
[2017-09-14] MEDS: ESCITALOPRAM OXALATE 10 MG TABLET (FP) PO SCH (09:35)
[2017-09-14] MEDS: PANTOPRAZOLE 40 MG TABLET (FP) PO SCH (09:35)
[2017-09-14] MEDS: NICOTINE 14 MG/24 HOURS TOPICAL PATCH TD SCH (09:37)
[2017-09-14] MEDS: MAGNESIUM HYDROX 2400MG/30ML ORAL SUSPENSION 30 ML CUP PO PRN (09:38)
[2017-09-14] MEDS: MAG HYDROX/AL HYDROX/SIMETH 30 ML UNIT-DOSE CUP PO PRN (18:32)
[2017-09-14] MEDS: THIAMINE HCL 100 MG TABLET (FP) PO SCH (21:18)
[2017-09-14] MEDS: QUEtiapine FUMARATE 50 MG TABLET PO SCH (21:18)
[2017-09-15] MEDS ORDERED: METHADONE HCL 10 MG TABLET ONE (04:09)
[2017-09-15] MEDS ORDERED: METHADONE HCL 40 MG DISPERSABLE TABLET ONE (04:10)
[2017-09-15] MEDS: METHADONE 40 MG, METHADONE 10 MG PO SCH (05:59)
[2017-09-15] MEDS: ESCITALOPRAM OXALATE 10 MG TABLET (FP) PO SCH (09:47)
[2017-09-15] MEDS: amLODIPine BESYLATE 10 MG TABLET (FP) PO SCH (09:47)
[2017-09-15] MEDS: PANTOPRAZOLE 40 MG TABLET (FP) PO SCH (09:47)
[2017-09-15] MEDS: PRENATAL VITAMINS W/ FOLIC ACID TABLET (FP) PO SCH (09:47)
[2017-09-15] MEDS: NICOTINE 14 MG/24 HOURS TOPICAL PATCH TD SCH (09:48)
[2017-09-15] MEDS: THIAMINE HCL 100 MG TABLET (FP) PO SCH (21:07)
[2017-09-15] MEDS: QUEtiapine FUMARATE 50 MG TABLET PO SCH (21:07)
[2017-09-15] MEDS: MAGNESIUM HYDROX 2400MG/30ML ORAL SUSPENSION 30 ML CUP PO PRN (21:07)
[2017-09-16] MEDS: ACETAMINOPHEN 325 MG TABLET (FP) PO PRN (01:17)
[2017-09-16] MEDS: diphenhydrAMINE HCL 50 MG CAPSULE PO PRN (01:18)
[2017-09-16] MEDS ORDERED: METHADONE HCL 10 MG TABLET ONE (03:13)
[2017-09-16] MEDS ORDERED: METHADONE HCL 40 MG DISPERSABLE TABLET ONE (03:13)
[2017-09-16] MEDS: METHADONE 40 MG, METHADONE 10 MG PO SCH (08:29)
[2017-09-16] MEDS: PANTOPRAZOLE 40 MG TABLET (FP) PO SCH (09:47)
[2017-09-16] MEDS: amLODIPine BESYLATE 10 MG TABLET (FP) PO SCH (09:47)
[2017-09-16] MEDS: PRENATAL VITAMINS W/ FOLIC ACID TABLET (FP) PO SCH (09:47)
[2017-09-16] MEDS: NICOTINE 14 MG/24 HOURS TOPICAL PATCH TD SCH (09:48)
[2017-09-16] MEDS: ESCITALOPRAM OXALATE 10 MG TABLET (FP) PO SCH (09:48)
--- NOTE | 2017-09-16 15:17 | PN ---
S Progress Note (SOAP) Subjective: c/o chronic constipation x3 dasy on methadone with straining hard stool. chronic pain both shoulders bilaterally reports patch make si better. Objective: 09/16/17 15:14 Vital Signs - 24 hr 09/16/17 09/16/17 00:30 03:25 Respiratory 18 18 Rate abdo soft bs+ non tender no rebound or guarding no bony shoulder tenderness full rom pain on movement, no discoloration or swelling Assessment: 09/16/17 15:15 constipation 2/2 medication Plan: start colace 300mg qHS, senna x1 dose now. bilateral arhthritic shoulder pain llidoderm patch ordered
[2017-09-16] MEDS ORDERED: MAGNESIUM CITRATE 300 ML BOTTLE PO ONE ×2 (15:30→16:00)
[2017-09-16] MEDS: LIDOCAINE 5% TOPICAL PATCH TP SCH (15:36)
[2017-09-16] MEDS ORDERED: SENNOSIDES 8.6MG TABLET (FP) PO ONE (16:00)
[2017-09-16] MEDS: QUEtiapine FUMARATE 50 MG TABLET PO SCH (21:13)
[2017-09-16] MEDS: THIAMINE HCL 100 MG TABLET (FP) PO SCH (21:13)
[2017-09-16] MEDS: DOCUSATE SODIUM 100 MG CAPSULE (FP) PO SCH (21:13)
[2017-09-16] MEDS: LIDOCAINE PATCH REMOVAL MC SCH (21:14)
[2017-09-17] MEDS: diphenhydrAMINE HCL 50 MG CAPSULE PO PRN (00:57)
[2017-09-17] MEDS: ACETAMINOPHEN 325 MG TABLET (FP) PO PRN (00:57)
[2017-09-17] MEDS ORDERED: METHADONE HCL 10 MG TABLET ONE (03:19)
[2017-09-17] MEDS ORDERED: METHADONE HCL 40 MG DISPERSABLE TABLET ONE (03:20)
[2017-09-17] MEDS: METHADONE 40 MG, METHADONE 10 MG PO SCH (08:40)
[2017-09-17] MEDS: ESCITALOPRAM OXALATE 10 MG TABLET (FP) PO SCH (09:03)
[2017-09-17] MEDS: PANTOPRAZOLE 40 MG TABLET (FP) PO SCH (09:04)
[2017-09-17] MEDS: PRENATAL VITAMINS W/ FOLIC ACID TABLET (FP) PO SCH (09:04)
[2017-09-17] MEDS: amLODIPine BESYLATE 10 MG TABLET (FP) PO SCH (09:06)
[2017-09-17] MEDS: NICOTINE 14 MG/24 HOURS TOPICAL PATCH TD SCH (09:07)
[2017-09-17] MEDS: LIDOCAINE 5% TOPICAL PATCH TP SCH (09:07)
[2017-09-17] MEDS: THIAMINE HCL 100 MG TABLET (FP) PO SCH (21:08)
[2017-09-17] MEDS: DOCUSATE SODIUM 100 MG CAPSULE (FP) PO SCH (21:09)
[2017-09-17] MEDS: QUEtiapine FUMARATE 50 MG TABLET PO SCH (21:09)
[2017-09-17] MEDS: LIDOCAINE PATCH REMOVAL MC SCH (21:09)
[2017-09-18] MEDS: diphenhydrAMINE HCL 50 MG CAPSULE PO PRN (02:15)
[2017-09-18] MEDS ORDERED: METHADONE HCL 40 MG DISPERSABLE TABLET ONE (03:19)
[2017-09-18] MEDS ORDERED: METHADONE HCL 10 MG TABLET ONE (03:19)
[2017-09-18] MEDS: METHADONE 40 MG, METHADONE 10 MG PO SCH (06:55)
[2017-09-18] MEDS: PANTOPRAZOLE 40 MG TABLET (FP) PO SCH (09:47)
[2017-09-18] MEDS: PRENATAL VITAMINS W/ FOLIC ACID TABLET (FP) PO SCH (09:47)
[2017-09-18] MEDS: ESCITALOPRAM OXALATE 10 MG TABLET (FP) PO SCH (09:48)
[2017-09-18] MEDS: amLODIPine BESYLATE 10 MG TABLET (FP) PO SCH (09:48)
[2017-09-18] MEDS: NICOTINE 14 MG/24 HOURS TOPICAL PATCH TD SCH (09:49)
[2017-09-18] MEDS: LIDOCAINE 5% TOPICAL PATCH TP SCH (09:49)
[2017-09-18] MEDS: MAG HYDROX/AL HYDROX/SIMETH 30 ML UNIT-DOSE CUP PO PRN (19:58)
[2017-09-18] MEDS: DOCUSATE SODIUM 100 MG CAPSULE (FP) PO SCH (21:16)
[2017-09-18] MEDS: THIAMINE HCL 100 MG TABLET (FP) PO SCH (21:16)
[2017-09-18] MEDS: QUEtiapine FUMARATE 50 MG TABLET PO SCH (21:16)
[2017-09-18] MEDS: LIDOCAINE PATCH REMOVAL MC SCH (21:17)
[2017-09-19] MEDS ORDERED: METHADONE HCL 10 MG TABLET ONE (03:08)
[2017-09-19] MEDS ORDERED: METHADONE HCL 40 MG DISPERSABLE TABLET ONE (03:09)
[2017-09-19] MEDS: IBUPROFEN 400 MG TABLET (FP) PO PRN ×2 (06:28→21:06)
[2017-09-19] MEDS: METHADONE 40 MG, METHADONE 10 MG PO SCH ×2 (09:32→09:50)
[2017-09-19] MEDS: PRENATAL VITAMINS W/ FOLIC ACID TABLET (FP) PO SCH (09:33)
[2017-09-19] MEDS: PANTOPRAZOLE 40 MG TABLET (FP) PO SCH (09:33)
[2017-09-19] MEDS: amLODIPine BESYLATE 10 MG TABLET (FP) PO SCH (09:34)
[2017-09-19] MEDS: ESCITALOPRAM OXALATE 10 MG TABLET (FP) PO SCH (09:34)
[2017-09-19] MEDS: LIDOCAINE 5% TOPICAL PATCH TP SCH (09:35)
[2017-09-19] MEDS: NICOTINE 14 MG/24 HOURS TOPICAL PATCH TD SCH (09:35)
[2017-09-19] MEDS: QUEtiapine FUMARATE 50 MG TABLET PO SCH (21:04)
[2017-09-19] MEDS: THIAMINE HCL 100 MG TABLET (FP) PO SCH (21:04)
[2017-09-19] MEDS: LIDOCAINE PATCH REMOVAL MC SCH (21:04)
[2017-09-19] MEDS: DOCUSATE SODIUM 100 MG CAPSULE (FP) PO SCH (21:04)
[2017-09-20] MEDS ORDERED: METHADONE HCL 10 MG TABLET ONE (03:07)
[2017-09-20] MEDS ORDERED: METHADONE HCL 40 MG DISPERSABLE TABLET ONE (03:07)
[2017-09-20] MEDS: METHADONE 40 MG, METHADONE 10 MG PO SCH (06:19)
[2017-09-20] MEDS: NICOTINE 14 MG/24 HOURS TOPICAL PATCH TD SCH (09:40)
[2017-09-20] MEDS: PRENATAL VITAMINS W/ FOLIC ACID TABLET (FP) PO SCH (09:40)
[2017-09-20] MEDS: ESCITALOPRAM OXALATE 10 MG TABLET (FP) PO SCH (09:40)
[2017-09-20] MEDS: PANTOPRAZOLE 40 MG TABLET (FP) PO SCH (09:40)
[2017-09-20] MEDS: LIDOCAINE 5% TOPICAL PATCH TP SCH (09:41)
[2017-09-20] MEDS: amLODIPine BESYLATE 10 MG TABLET (FP) PO SCH (09:41)
[2017-09-20] MEDS: IBUPROFEN 400 MG TABLET (FP) PO PRN (17:55)
[2017-09-20] MEDS: LIDOCAINE PATCH REMOVAL MC SCH (21:06)
[2017-09-20] MEDS: DOCUSATE SODIUM 100 MG CAPSULE (FP) PO SCH (21:06)
[2017-09-20] MEDS: QUEtiapine FUMARATE 50 MG TABLET PO SCH (21:07)
[2017-09-20] MEDS: THIAMINE HCL 100 MG TABLET (FP) PO SCH (21:07)
[2017-09-20] MEDS: ACETAMINOPHEN 325 MG TABLET (FP) PO PRN (21:08)
[2017-09-21] MEDS: diphenhydrAMINE HCL 50 MG CAPSULE PO PRN (00:47)
[2017-09-21] MEDS ORDERED: METHADONE HCL 10 MG TABLET ONE (03:00)
[2017-09-21] MEDS ORDERED: METHADONE HCL 40 MG DISPERSABLE TABLET ONE (03:01)
[2017-09-21] MEDS: METHADONE 40 MG, METHADONE 10 MG PO SCH (06:21)
[2017-09-21] MEDS: LIDOCAINE 5% TOPICAL PATCH TP SCH (09:25)
[2017-09-21] MEDS: ESCITALOPRAM OXALATE 10 MG TABLET (FP) PO SCH (09:26)
[2017-09-21] MEDS: PANTOPRAZOLE 40 MG TABLET (FP) PO SCH (09:26)
[2017-09-21] MEDS: NICOTINE 14 MG/24 HOURS TOPICAL PATCH TD SCH (09:27)
[2017-09-21] MEDS: amLODIPine BESYLATE 10 MG TABLET (FP) PO SCH (09:27)
[2017-09-21] MEDS: PRENATAL VITAMINS W/ FOLIC ACID TABLET (FP) PO SCH (09:27)
[2017-09-21] MEDS: IBUPROFEN 400 MG TABLET (FP) PO PRN ×2 (10:27→21:13)
[2017-09-21] MEDS: THIAMINE HCL 100 MG TABLET (FP) PO SCH (21:13)
[2017-09-21] MEDS: QUEtiapine FUMARATE 50 MG TABLET PO SCH (21:13)
[2017-09-21] MEDS: LIDOCAINE PATCH REMOVAL MC SCH (21:14)
[2017-09-21] MEDS: DOCUSATE SODIUM 100 MG CAPSULE (FP) PO SCH (21:14)
[2017-09-22] MEDS: diphenhydrAMINE HCL 50 MG CAPSULE PO PRN (01:49)
[2017-09-22] MEDS ORDERED: METHADONE HCL 10 MG TABLET ONE (03:08)
[2017-09-22] MEDS ORDERED: METHADONE HCL 40 MG DISPERSABLE TABLET ONE (03:08)
[2017-09-22] MEDS: IBUPROFEN 400 MG TABLET (FP) PO PRN ×2 (03:36→10:15)
[2017-09-22] MEDS: METHADONE 40 MG, METHADONE 10 MG PO SCH (06:32)
[2017-09-22 06:35] VITALS: BP 99/61; PULSE 85; TEMP 98.3
[2017-09-22] MEDS: amLODIPine BESYLATE 10 MG TABLET (FP) PO SCH (09:41)
[2017-09-22] MEDS: ESCITALOPRAM OXALATE 10 MG TABLET (FP) PO SCH (09:41)
[2017-09-22] MEDS: PRENATAL VITAMINS W/ FOLIC ACID TABLET (FP) PO SCH (09:41)
[2017-09-22] MEDS: PANTOPRAZOLE 40 MG TABLET (FP) PO SCH (09:41)
[2017-09-22] MEDS: LIDOCAINE 5% TOPICAL PATCH TP SCH (09:41)
[2017-09-22] MEDS: NICOTINE 14 MG/24 HOURS TOPICAL PATCH TD SCH (09:42)
--- NOTE | 2017-09-22 10:10 | PN ---
Psychiatric Progress Note Vital Signs: Vital Signs Period Temp Pulse Resp BP Sys/Martínez Pulse Ox Last 24 Hr 98.3 F 85 16-16 99/61 Date of Session: 09/22/17 Chief Complaint:: discharge visit HPI: Patient has addressed alcohol, nicotine, opioid , nicotine dependence comorbid substance induced mood disorder and depressive disorder. ROS: Hypertension,hepatitis C,lower back pain and arthritis medically managed. Current Medications: Active Medications Generic Name Dose Route Start Last Admin Trade Name Freq PRN Reason Stop Dose Admin Acetaminophen 650 mg 09/04/17 15:52 09/20/17 21:08 Tylenol - PO 650 mg Q4H PRN Administration FEVER OR PAIN Al Hydroxide/Mg Hydroxide 30 ml 09/04/17 15:52 09/18/17 19:58 Mylanta Oral Suspension - PO 30 ml Q6H PRN Administration DYSPEPSIA Amlodipine Besylate 10 mg 09/05/17 10:00 09/22/17 09:41 Norvasc - PO 10 mg DAILY BRITTANY Administration Diphenhydramine HCl 50 mg 09/04/17 15:52 09/22/17 01:49 Benadryl - PO 50 mg HSMR1 PRN Administration FOR ITCHING Docusate Sodium 300 mg 09/16/17 22:00 09/21/17 21:14 Colace - PO Not Given HS [facility] Escitalopram Oxalate 5 mg 09/07/17 12:15 09/22/17 09:41 Lexapro - PO 5 mg DAILY BRITTANY Administration Eucalyptus/Menthol/Phenol/Sorbitol 1 each 09/04/17 15:52 Cepastat Lozenge - MM Q4H PRN SORE THROAT Guaifenesin 10 ml 09/04/17 15:52 Robitussin Dm - PO Q6H PRN COUGH Ibuprofen 400 mg 09/04/17 15:52 09/22/17 03:36 Motrin - PO 400 mg Q6H PRN Administration PAIN Lidocaine 1 patch 09/16/17 16:00 09/22/17 09:41 Lidoderm Patch - TP Not Given DAILY BRITTANY Loperamide HCl 4 mg 09/04/17 15:52 Imodium - PO Q6H PRN DIARRHEA Magnesium Hydroxide 30 ml 09/04/17 15:52 09/15/17 21:07 Milk Of Magnesia - PO 30 ml DAILY PRN Administration CONSTIPATION Methadone HCl 40 mg/ Methadone 50 mg 09/19/17 07:00 09/22/17 06:32 HCl 10 mg PO 50 mg DAILY@0600 BRITTANY Administration Miscellaneous 1 each 09/16/17 22:00 09/21/17 21:14 Lidoderm Patch Removal MC 1 each DAILY@2200 BRITTANY Administration Nicotine 14 mg 09/08/17 12:03 09/22/17 09:42 Nicoderm Patch - TD Not Given DAILY BRITTANY Nicotine Polacrilex 2 mg 09/04/17 15:52 Nicorette Gum - BUC Q2H PRN NICOTINE REPLACEMENT RX Nicotine Polacrilex 2 mg 09/08/17 11:27 Nicorette Gum - BUC Q2H PRN NICOTINE REPLACEMENT RX Pantoprazole Sodium 40 mg 09/08/17 12:02 09/22/17 09:41 Protonix - PO 40 mg DAILY BRITTANY Administration Multivit/Folic Acid/Iron 1 tab 09/05/17 10:00 09/22/17 09:41 Vitamins (Sjr) - PO 1 tab DAILY BRITTANY Administration Pseudoephedrine/Triprolidine 1 combo 09/04/17 15:52 Actifed - PO TID PRN NASAL CONGESTION Quetiapine Fumarate 50 mg 09/04/17 22:00 09/21/17 21:13 Seroquel - PO 50 mg HS BRITTANY Administration Thiamine HCl 100 mg 09/04/17 22:00 09/21/17 21:13 Vitamin B1 - PO 100 mg HS BRITTANY Administration Current Side Effect: No Lab tests ordered: No Lab tests reviewed: Yes Provider note:: Patient has completed today his treatment and met his identified goals, will continue to address his issues at [facility] and will stay at [facility]. He verbalized his resolution to stay sober and adherent to every aspects of his aftercare plans. He understands the negative consequences of his addiction and importance of changing attitudes for utilization of supports to maintain recovery. Medicatio Seroquel well tolerated scripts for 30 days provided, patient is stable for discharge today. Total face to face time:: 35 Mental Status Exam - Mental Status Exam Alert and Oriented to: Time, Place, Person Cognitive Function: Good Patient Appearance: Well Groomed Mood: Hopeful Affect: Appropriate, Mood Congruent Patient Behavior: Appropriate, Cooperative Speech Pattern: Clear, Appropriate Voice Loudness: Normal Thought Process: Intact, Goal Oriented Thought Disorder: Not Present Hallucinations: Denies Suicidal Ideation: Denies Homicidal Ideation: Denies Insight/Judgement: Fair Sleep: Fair Appetite: Fair Muscle strength/Tone: Normal Gait/Station: Normal Psychiatric Treatment Plan - Problem List (1) Alcohol dependence Current Visit: Yes (2) Nicotine dependence Current Visit: Yes (3) Opioid dependence on agonist therapy Current Visit: Yes (4) Substance induced mood disorder Current Visit: Yes (5) Depressive disorder Current Visit: Yes
== END 2017-09-22 10:30 | disposition home or self-care (01) | DRG 772 ==
LOC: YASAS 14:53 → Y5N 14:54
PROVIDERS: ADMIT Internal Medicine; ATTEND Psychiatry & Neurology Psychiatry
PROC: HZ42ZZZ Group Counseling for Substance Abuse Treatment, Cognitive-Behavioral (ICD-10-PCS; principal; 2017-09-04)
DX: F11.20 Opioid dependence, uncomplicated (principal); F10.230 Alcohol dependence with withdrawal, uncomplicated; F17.210 Nicotine dependence, cigarettes, uncomplicated; F19.24 Other psychoactive substance dependence with psychoactive substance-induced mood disorder; F32.9 Major depressive disorder, single episode, unspecified; I10 Essential (primary) hypertension; G47.00 Insomnia, unspecified; B18.2 Chronic viral hepatitis C

== ENCOUNTER 2017-11-13 08:57 | Inpatient (IN) | payer OTHER ==
[2017-11-13 09:41] VITALS: BMI 25.0
--- NOTE | 2017-11-13 10:14 | HP ---
CIWA Score - CIWA Score Nausea/Vomitin Muscle Tremors: 3 Anxiety: 3 Agitation: 3 Paroxysmal Sweats: 3 Orientation: 0-Oriented Tacttile Disturbances: 2-Mild Itch/Numbness/Burn Auditory Disturbances: 0-None Visual Disturbances: 0-None Headache: 2-Mild CIWA-Ar Total Score: 19 Admission ROS S - [facility] Chief Complaint: alcohol withdrwal sx and urti Allergies/Adverse Reactions: Allergies Allergy/AdvReac Type Severity Reaction Status Date / Time No Known Allergies Allergy Verified 11/13/17 09:45 History of Present Illness: 62 yo m with h/o opioid use disorder on OTP 35mg daily, was not medicated today , [facility] because of alcohol withdrawal syndrome. no h/o seizures, no h/o DTs. also has URTI symptoms. Exam Limitations: No Limitations - Ebola screening Have you traveled outside of the country in the last 21 days: No (N) Have you had contact with anyone from an Ebola affected area: No Have you been sick,other than usual withdrawal symptoms: No Do you have a fever: No - Review of Systems Constitutional: Chills, Diaphoresis, Night Sweats, Changes in sleep, Unintentional Wgt. Loss EENT: reports: Nose Congestion, Throat Pain Respiratory: reports: Cough, SOB with Exertion Cardiac: reports: No Symptoms Reported GI: reports: Constipated, Diarrhea, Nausea, Poor Appetite, Poor Fluid Intake, Indigestion, Abdominal cramping : reports: No Symptoms Reported Musculoskeletal: reports: Back Pain, Joint Pain, Muscle Pain, Neck Pain Integumentary: reports: Flushing, Sweating Neuro: reports: Headache, Numbness, Tingling, Tremors Endocrine: reports: Increased Thirst Hematology: reports: No Symptoms Reported Psychiatric: reports: Judgement Intact, Mood/Affect Appropiate, Orientated x3, Anxious, Depressed Other Systems: Reviewed and Negative Patient History - Patient Medical History Hx Anemia: No Hx Asthma: No Hx Chronic Obstructive Pulmonary Disease (COPD): No Hx Cancer: No Hx Cardiac Disorders: No Hx Congestive Heart Failure: No Hx Hypertension: Yes Hx Hypercholesterolemia: No Hx Pacemaker: No HX Cerebrovascular Accident: No Hx Seizures: No Hx Dementia: No Hx Diabetes: No Hx Gastrointestinal Disorders: No Hx Liver Disease: Yes (liver mass resectd at [facility] 2017, has been losing wt since) Hx Genitourinary Disorders: No Hx Sexually Transmitted Disorders: No Hx Renal Disease (ESRD): No Hx Thyroid Disease: No Hx Human Immunodeficiency Virus (HIV): No (NEGATIVE HX) Hx Hepatitis C: Yes (NOT TREATED) Hx Depression: Yes Hx Suicide Attempt: No (no si at present) Hx Bipolar Disorder: No Hx Schizophrenia: No - Patient Surgical History Past Surgical History: Yes Hx Neurologic Surgery: No Hx Cataract Extraction: No Hx Cardiac Surgery: No Hx Lung Surgery: No Hx Breast Surgery: No Hx Breast Biopsy: No Hx Abdominal Surgery: Yes (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 in [facility].) Hx Appendectomy: No Hx Cholecystectomy: No Hx Genitourinary Surgery: No Hx Section: No Hx Orthopedic Surgery: No Hx Hysterectomy: No Anesthesia Reaction: No - PPD History Previous Implant?: Yes Documented Results: Positive w/proof Implanted On Prior [facility] Admission?: Yes Date: 09/02/17 Results: 0mm PPD to be Administered?: No - Reproductive History Patient is a Female of Child Bearing Age (11 -55 yrs old): No Patient : No - Smoking Cessation Smoking history: Current every day smoker Have you smoked in the past 12 months: Yes Aproximately how many cigarettes per day: 7 Cigars Per Day: 0 Hx Chewing Tobacco Use: No Initiated information on smoking cessation: Yes 'Breaking Loose' booklet given: 11/13/17 - Substance & Tx. History Hx Alcohol Use: Yes Hx Substance Use: Yes Substance Use Type: Alcohol, Heroin, Opiates Hx Substance Use Treatment: Yes ([facility], [facility]) - Substances Abused Alcohol Route: Oral Frequency: Daily Amount used: vodka(1 quart)/beer(10-15 24oz cans) Age of first use: 15 Date of Last Use: 11/13/17 Marijuana/Hashish Route: Smoking Frequency: 3-6 times per week Amount used: 2-3 joints Age of first use: 15 Date of Last Use: 11/11/17 Family Disease History - Family Disease History Family Disease History: [place]: Father Admission Physical Exam BHS - Vital Signs Vital Signs: Vital Signs - 24 hr 11/13/17 09:38 Temperature 97 F L Pulse Rate 94 H Respiratory 20 Rate Blood Pressure 166/92 - Physical General Appearance: Yes: Nourished, Appropriately Dressed, Disheveled, Mild Distress, Thin, Tremorous, Irritable, Sweating, Anxious HEENTM: Yes: EOMI, Hearing grossly Normal, Normocephalic, Normal Voice, LORAINE, Nasal Congestion, Rhinorrhea Respiratory: Yes: Within Normal Limits, Chest Non-Tender, Lungs Clear, Normal Breath Sounds, No Respiratory Distress, No Accessory Muscle Use Neck: Yes: Within Normal Limits, No masses,lesions,Nodules, Supple, Trachea in good position Breast: Yes: Breast Exam Deferred Cardiology: Yes: Within Normal Limits, Regular Rhythm, Regular Rate, S1, S2 Abdominal: Yes: Within Normal Limits, Normal Bowel Sounds, Non Tender, Flat, Soft Genitourinary: Yes: Within Normal Limits Back: Yes: Within Normal Limits, Normal Inspection Musculoskeletal: Yes: Within Normal Limits, full range of Motion, Gait Steady, Pelvis Stable Extremities: Yes: Normal Capillary Refill, Normal Range of Motion, Non-Tender, Tremors, Other (clubbing bilaterally) Neurological: Yes: case work aide II-XII NML intact, Fully Oriented, Alert, Motor Strength 5/5, Normal Response, Depressed Affect Integumentary: Yes: Normal Color, Warm, Diaphoresis, Moist, Track Devries (old, no recent idu) Lymphatic: Yes: Within Normal Limits - Addiitonal Findings: withdrawal sx - Diagnostic (1) Alcohol dependence with uncomplicated withdrawal Current Visit: Yes Status: Acute (2) Nicotine dependence Current Visit: No Status: Active (3) Opioid dependence on agonist therapy Current Visit: No Status: Acute (4) Substance induced mood disorder Current Visit: No Status: Acute (5) Hepatitis C carrier Current Visit: No Status: Chronic (6) Hypertension Current Visit: No Status: Chronic Qualifiers: Comment: FORGOT NAME OF MEDICINE BUT LAST TOOK IT LAST WEEK. SEES DR CALVERT AT [facility](NOW [facility]). (7) Depressive disorder Current Visit: No Status: Suspected (8) Clubbing of nails Current Visit: Yes Status: Acute Cleared for Admission [facility] - Detox or Rehab [facility] Level of Care: Medically Managed Detox Regimen/Protocol: Librium [facility] Breath Alcohol Content Breath Alcohol Content: 0.022 Urine Drug Screen - Results Drug Screen Negative: No Urine Drug Screen Results: BZO-Benzodiazepines, MTD-Methadone
[2017-11-13] MEDS ORDERED: ACETAMINOPHEN 325 MG TABLET (FP) PO PRN (10:24)
[2017-11-13] MEDS ORDERED: MAG HYDROX/AL HYDROX/SIMETH 30 ML UNIT-DOSE CUP PO PRN (10:24)
[2017-11-13] MEDS ORDERED: MAGNESIUM CITRATE 300 ML BOTTLE PO PRN (10:24)
[2017-11-13] MEDS ORDERED: NICOTINE POLACRILEX 2 MG GUM BUC PRN (10:24)
[2017-11-13] MEDS ORDERED: P-EPHED 60MG/TRIPROLIDI 2.5MG TABLET PO PRN (10:24)
[2017-11-13] MEDS ORDERED: MAGNESIUM HYDROX 2400MG/30ML ORAL SUSPENSION 30 ML CUP PO PRN (10:24)
[2017-11-13] MEDS ORDERED: LOPERAMIDE HCL 2 MG CAPSULE PO PRN (10:24)
[2017-11-13] MEDS ORDERED: guaiFENesin/D-METHORPHAN HB 10 ML UNIT-DOSE CUPS PO PRN (10:24)
[2017-11-13] MEDS ORDERED: MENTHOL/PHENOL 1 EACH UD MM PRN (10:24)
[2017-11-13] MEDS ORDERED: chlordiazePOXIDE HCL 25 MG CAPSULE PO PRN (10:24)
[2017-11-13] MEDS ORDERED: hydrOXYzine PAMOATE 50 MG CAPSULE (FP) PO PRN (10:24)
[2017-11-13] MEDS ORDERED: METHADONE HCL 40 MG DISPERSABLE TABLET PO SCH (10:30)
[2017-11-13] MEDS ORDERED: chlordiazePOXIDE HCL 25 MG CAPSULE PO ONE (11:15)
[2017-11-13] MEDS ORDERED: METHADONE HCL 10 MG TABLET ONE (11:23)
[2017-11-13] MEDS ORDERED: METHADONE HCL 5 MG TABLET ONE (11:24)
[2017-11-13] MEDS: METHADONE 30 MG, METHADONE 5 MG PO SCH (11:38)
[2017-11-13] MEDS: amLODIPine BESYLATE 10 MG TABLET (FP) PO SCH (11:39)
[2017-11-13] MEDS: PANTOPRAZOLE 40 MG TABLET (FP) PO SCH (11:39)
[2017-11-13] MEDS: NICOTINE 14 MG/24 HOURS TOPICAL PATCH TD SCH (11:41)
[2017-11-13] MEDS: IBUPROFEN 400 MG TABLET (FP) PO PRN (13:37)
--- NOTE | 2017-11-13 14:17 | CONSULT ---
[facility] Psychiatric Consult - Data Date of interview: 11/13/17 Admission source: [facility] Identifying data: Another admission to [facility] for this 62 y/o [place] male seeking detox treatment on for alcohol dependence.Patient is ,a father of two,undomiciled,unemployed and supported on SSI benefits. Substance Abuse History: Confirmed by patient in this session.Details in current [facility] report : Smoking history: Current every day smoker. Have you smoked in the past 12 months: Yes. Aproximately how many cigarettes per day: 7. Cigars Per Day: 0. Hx Chewing Tobacco Use: No. Initiated information on smoking cessation: Yes. 'Breaking Loose' booklet given: 11/13/17. - Substance & Tx. History. Hx Alcohol Use: Yes. Hx Substance Use: Yes. Substance Use Type : Alcohol, Heroin, Opiates. Hx Substance Use Treatment: Yes ([facility], [facility]). - Substances Abused. Alcohol. Route: Oral. Frequency: Daily. Amount used: vodka(1 quart)/beer(10-15 24oz cans). Age of first use: 15. Date of Last Use: 11/13/17. Marijuana/Hashish. Route: Smoking. Frequency: 3-6 times per week. Amount used: 2-3 joints. Age of first use: 15. Date of Last Use: 11/11/17 Medical History: History of hepatic mass,hypertension,hepatitis C,lower back pain and arthritis (both hands). Psychiatric History: Patient denies history of psychiatric hospitalizations.Patient endorses the diagnoses of MDD and Anxiety Disorder.Mr Phelps is currently followed at [facility] (methadone maintenance : 35 mg/day) .Maintained on seroquel 50 mg po hs.Patient denies history of suicide attempts. Physical/Sexual Abuse/Trauma History: Patient denies. Additional Comment: Urine Drug Screen Results: BZO-Benzodiazepines, MTD- Methadone.Noted. Mental Status Exam - Mental Status Exam Alert and Oriented to: Time, Place, Person Cognitive Function: Good Patient Appearance: Unkempt, Disheveled Mood: Nervous, Anxious Affect: Mood Congruent Patient Behavior: Fatigued, Appropriate, Cooperative Speech Pattern: Clear, Appropriate (bilingual) Voice Loudness: Normal Thought Process: Intact, Goal Oriented Thought Disorder: Not Present Hallucinations: Denies Suicidal Ideation: Denies Homicidal Ideation: Denies Insight/Judgement: Poor Sleep: Poorly, Difficulty falling asleep Appetite: Good Muscle strength/Tone: Normal Gait/Station: Normal Psychiatric Findings - Problem List ([place] 1, 2,3) (1) Alcohol dependence with uncomplicated withdrawal Current Visit: Yes Status: Acute (2) Nicotine dependence Current Visit: Yes Status: Active (3) Opioid dependence on agonist therapy Current Visit: No Status: Acute (4) Substance induced mood disorder Current Visit: Yes Status: Acute (5) Depressive disorder Current Visit: No Status: Suspected (6) Insomnia Current Visit: Yes Status: Acute - Initial Treatment Plan Initial Treatment Plan: Previous records are reviewed.Psychoeducation.Sleep hygiene.Detoxification in progress.Medications : seroquel 50 mg po hs + lexapro 5 mg po daily.Side effects/benefits of both drugs are discussed with patient.Mr Phelps expresses his agrement to this plan of care.Observation.
[2017-11-13 16:54] LABS: URINE APPEARANCE CLEAR; URINE BILIRUBIN NEGATIVE (NEGATIVE); URINE BLOOD NEGATIVE (NEGATIVE); URINE COLOR STRAW; URINE GLUCOSE (UA) NEGATIVE (NEGATIVE); URINE KETONE NEGATIVE (NEGATIVE); URINE LEUK ESTERASE NEGATIVE (NEGATIVE); URINE NITRITE NEGATIVE (NEGATIVE); URINE PROTEIN NEGATIVE (NEGATIVE); URINE UROBILINOGEN NEGATIVE mg/dL (0.2-1.0)
[2017-11-13] MEDS: chlordiazePOXIDE HCL 25 MG CAPSULE PO SCH ×2 (17:14→22:13)
[2017-11-13] MEDS: QUEtiapine FUMARATE 50 MG TABLET PO SCH (22:12)
[2017-11-13] MEDS: THIAMINE HCL 100 MG TABLET (FP) PO SCH (22:13)
[2017-11-13] MEDS ORDERED: ONDANSETRON 8 MG TABLET (FP) PO PRN (22:15)
[2017-11-13] MEDS ORDERED: ONDANSETRON 4 MG TABLET PO PRN (22:33)
[2017-11-13] MEDS ORDERED: ONDANSETRON *ODT* 4 MG TABLET SL PRN (22:51)
[2017-11-14] MEDS ORDERED: METHADONE HCL 10 MG TABLET ONE (04:50)
[2017-11-14] MEDS ORDERED: METHADONE HCL 5 MG TABLET ONE (04:50)
[2017-11-14] MEDS: chlordiazePOXIDE HCL 25 MG CAPSULE PO SCH ×4 (05:26→22:24)
[2017-11-14] MEDS: METHADONE 30 MG, METHADONE 5 MG PO SCH (05:26)
[2017-11-14] MEDS: PRENATAL VITAMINS W/ FOLIC ACID TABLET (FP) PO SCH (10:15)
[2017-11-14] MEDS: amLODIPine BESYLATE 10 MG TABLET (FP) PO SCH (10:15)
[2017-11-14] MEDS: PANTOPRAZOLE 40 MG TABLET (FP) PO SCH (10:15)
[2017-11-14] MEDS: ESCITALOPRAM OXALATE 10 MG TABLET (FP) PO SCH (10:15)
[2017-11-14] MEDS: NICOTINE 14 MG/24 HOURS TOPICAL PATCH TD SCH (10:16)
[2017-11-14] MEDS: IBUPROFEN 400 MG TABLET (FP) PO PRN (10:19)
[2017-11-14 11:02] LABS: HEMATOCRIT 37.8 % (35.4-49); HEMOGLOBIN 12.4 GM/dL (11.7-16.9); MCHC 32.8 g/dl (32.0-35.9); MEAN CELL VOLUME 94.7 fl (80-96); MEAN PLT VOLUME 8.7 fl (7.5-11.1); PLATELET COUNT 276 K/MM3 (134-434); RBC 3.99 M/mm3 (4.00-5.60); RDW 15.2 % (11.9-15.9); WHITE BLOOD COUNT 5.9 K/mm3 (4.0-10.0)
[2017-11-14 11:05] LABS: ALBUMIN 3.7 g/dl (3.4-5.0); ANION GAP 7 (8-16); BLOOD UREA NITROGEN 7 mg/dL (7-18); CALCIUM 8.8 mg/dL (8.5-10.1); CHLORIDE 102 mmol/L (98-107); CO2 25 mmol/L (21-32); CREATININE 0.7 mg/dL (0.7-1.3); GLUCOSE,RANDOM 98 mg/dL (74-106); POTASSIUM 4.4 mmol/L (3.5-5.1); SGOT/AST 55 U/L (15-37); SGPT/ALT 30 U/L (12-78); SODIUM 134 mmol/L (136-145)
[2017-11-14 11:07] LABS: ALK PHOS 165 U/L (45-117); BILIRUBIN,TOTAL 0.6 mg/dL (0.2-1.0); TOT PROT 9.2 g/dl (6.4-8.2)
[2017-11-14] MEDS ORDERED: FLU VACCINE QUAD 60 MCG/0.5 ML (MDV 17-18) IM ONE (12:00)
--- NOTE | 2017-11-14 13:44 | EKG ---
Test Reason : Blood Pressure : / mmHG Vent. Rate : 078 BPM Atrial Rate : 078 BPM P-R Int : 144 ms QRS Dur : 082 ms QT Int : 352 ms P-R-T Axes : 057 044 045 degrees QTc Int : 401 ms NORMAL SINUS RHYTHM NORMAL ECG WHEN COMPARED WITH ECG OF 31-AUG-2017 14:16, CRITERIA FOR SEPTAL INFARCT ARE NO LONGER PRESENT Confirmed by ASHLEY CUNNINGHAM MD ([id number]) on 11/14/2017 1:44:28 PM Referred By: Confirmed By:ASHLEY CUNNINGHAM MD
--- NOTE | 2017-11-14 13:53 | PN ---
S CIWA - CIWA Score Nausea/Vomitin Muscle Tremors: 2 Anxiety: 2 Agitation: 2 Paroxysmal Sweats: 2 Orientation: 0-Oriented Tacttile Disturbances: 2-Mild Itch/Numbness/Burn Auditory Disturbances: 1-Very Mild Visual Disturbances: 2-Mild Sensitivity Headache: 1-Very Mild CIWA-Ar Total Score: 16 BHS Progress Note (SOAP) Subjective: Shakes, sweats,generalized pain,nausea Objective: 11/14/17 13:52 Vital Signs 11/14/17 11/14/17 06:21 09:48 Temperature 96.8 F L 97.4 F L Pulse Rate 57 L 83 Respiratory 16 18 Rate Blood Pressure 146/72 124/75 Laboratory Last Values WBC 5.9 K/mm3 (4.0-10.0) 11/14/17 05:40 RBC 3.99 M/mm3 (4.00-5.60) L 11/14/17 05:40 Hgb 12.4 GM/dL (11.7-16.9) 11/14/17 05:40 Hct 37.8 % (35.4-49) 11/14/17 05:40 MCV 94.7 fl (80-96) 11/14/17 05:40 MCH 31.0 pg (25.7-33.7) 11/14/17 05:40 MCHC 32.8 g/dl (32.0-35.9) 11/14/17 05:40 RDW 15.2 % (11.9-15.9) 11/14/17 05:40 Plt Count 276 K/MM3 (134-434) 11/14/17 05:40 MPV 8.7 fl (7.5-11.1) D 11/14/17 05:40 Sodium 134 mmol/L (136-145) L 11/14/17 05:40 Potassium 4.4 mmol/L (3.5-5.1) 11/14/17 05:40 Chloride 102 mmol/L (98-107) 11/14/17 05:40 Carbon Dioxide 25 mmol/L (21-32) 11/14/17 05:40 Anion Gap 7 (8-16) L 11/14/17 05:40 BUN 7 mg/dL (7-18) D 11/14/17 05:40 Creatinine 0.7 mg/dL (0.7-1.3) D 11/14/17 05:40 Creat Clearance w eGFR > 60 (>60) 11/14/17 05:40 Random Glucose 98 mg/dL (74-106) D 11/14/17 05:40 Calcium 8.8 mg/dL (8.5-10.1) 11/14/17 05:40 Total Bilirubin 0.6 mg/dL (0.2-1.0) D 11/14/17 05:40 AST 55 U/L (15-37) H 11/14/17 05:40 ALT 30 U/L (12-78) D 11/14/17 05:40 Alkaline Phosphatase 165 U/L (45-117) H 11/14/17 05:40 Total Protein 9.2 g/dl (6.4-8.2) H 11/14/17 05:40 Albumin 3.7 g/dl (3.4-5.0) 11/14/17 05:40 Urine Color Straw 11/13/17 14:40 Urine Appearance Clear 11/13/17 14:40 Urine pH 6.0 (5.0-8.0) 11/13/17 14:40 Ur Specific [place] 1.008 (1.001-1.035) 11/13/17 14:40 Urine Protein Negative (NEGATIVE) 11/13/17 14:40 Urine Glucose (UA) Negative (NEGATIVE) 11/13/17 14:40 Urine Ketones Negative (NEGATIVE) 11/13/17 14:40 Urine Blood Negative (NEGATIVE) 11/13/17 14:40 Urine Nitrite Negative (NEGATIVE) 11/13/17 14:40 Urine Bilirubin Negative (NEGATIVE) 11/13/17 14:40 Urine Urobilinogen Negative mg/dL (0.2-1.0) 11/13/17 14:40 Ur Leukocyte Esterase Negative (NEGATIVE) 11/13/17 14:40 RPR Titer Nonreactive (NONREACTIVE) 11/14/17 05:40 HIV 1&2 Antibody Screen Negative 11/13/17 11:30 HIV P24 Antigen Negative 11/13/17 11:30 Labs noted Assessment: 11/14/17 13:52 Withdrawal sx Plan: Continue detox
[2017-11-14] MEDS: QUEtiapine FUMARATE 50 MG TABLET PO SCH (22:24)
[2017-11-14] MEDS: THIAMINE HCL 100 MG TABLET (FP) PO SCH (22:24)
[2017-11-15] MEDS ORDERED: METHADONE HCL 10 MG TABLET ONE (05:24)
[2017-11-15] MEDS: METHADONE 30 MG, METHADONE 5 MG PO SCH (05:25)
[2017-11-15] MEDS ORDERED: METHADONE HCL 5 MG TABLET ONE (05:25)
[2017-11-15] MEDS: chlordiazePOXIDE HCL 25 MG CAPSULE PO SCH ×2 (05:25→10:25)
[2017-11-15] MEDS: ESCITALOPRAM OXALATE 10 MG TABLET (FP) PO SCH (10:24)
[2017-11-15] MEDS: PRENATAL VITAMINS W/ FOLIC ACID TABLET (FP) PO SCH (10:25)
[2017-11-15] MEDS: NICOTINE 14 MG/24 HOURS TOPICAL PATCH TD SCH (10:25)
[2017-11-15] MEDS: PANTOPRAZOLE 40 MG TABLET (FP) PO SCH (10:25)
[2017-11-15] MEDS: amLODIPine BESYLATE 10 MG TABLET (FP) PO SCH (10:25)
[2017-11-15] MEDS ORDERED: ONDANSETRON *ODT* 4 MG TABLET SL PRN (12:39)
--- NOTE | 2017-11-15 12:42 | PN ---
S CIWA - CIWA Score Nausea/Vomitin Muscle Tremors: 3 Anxiety: 3 Agitation: 3 Paroxysmal Sweats: 3 Orientation: 0-Oriented Tacttile Disturbances: 0-None Auditory Disturbances: 0-None Visual Disturbances: 0-None Headache: 0-None Present CIWA-Ar Total Score: 14 BHS Progress Note (SOAP) Subjective: Anxiety,tremors,sweating,interrupted sleep,restless Objective: 11/15/17 12:41 Vital Signs - 8 hr 11/15/17 11/15/17 06:21 09:56 Temperature 98.2 F 98.1 F Pulse Rate 87 82 Respiratory 16 16 Rate Blood Pressure 103/69 101/64 Laboratory Tests 11/13/17 11/13/17 11/14/17 11:30 14:40 05:40 WBC 5.9 RBC 3.99 L Hgb 12.4 Hct 37.8 MCV 94.7 MCH 31.0 MCHC 32.8 RDW 15.2 Plt Count 276 MPV 8.7 D Sodium Potassium Chloride Carbon Dioxide Anion Gap BUN Creatinine Creat Clearance w eGFR Random Glucose Calcium Total Bilirubin AST ALT Alkaline Phosphatase Total Protein Albumin Urine Color Straw Urine Appearance Clear Urine pH 6.0 Ur Specific [place] 1.008 Urine Protein Negative Urine Glucose (UA) Negative Urine Ketones Negative Urine Blood Negative Urine Nitrite Negative Urine Bilirubin Negative Urine Urobilinogen Negative Ur Leukocyte Esterase Negative RPR Titer HIV 1&2 Antibody Screen Negative HIV P24 Antigen Negative 11/14/17 11/14/17 05:40 05:40 WBC RBC Hgb Hct MCV MCH MCHC RDW Plt Count MPV Sodium 134 L Potassium 4.4 Chloride 102 Carbon Dioxide 25 Anion Gap 7 L BUN 7 D Creatinine 0.7 D Creat Clearance w eGFR > 60 Random Glucose 98 D Calcium 8.8 Total Bilirubin 0.6 D AST 55 H ALT 30 D Alkaline Phosphatase 165 H Total Protein 9.2 H Albumin 3.7 Urine Color Urine Appearance Urine pH Ur Specific [place] Urine Protein Urine Glucose (UA) Urine Ketones Urine Blood Urine Nitrite Urine Bilirubin Urine Urobilinogen Ur Leukocyte Esterase RPR Titer Nonreactive HIV 1&2 Antibody Screen HIV P24 Antigen labs noted Assessment: 11/15/17 12:41 Withdrawal sx. Plan: Continue detox
[2017-11-15] MEDS: chlordiazePOXIDE 5 MG CAPSULE PO SCH ×2 (16:57→22:28)
[2017-11-15] MEDS: QUEtiapine FUMARATE 50 MG TABLET PO SCH (22:28)
[2017-11-15] MEDS: THIAMINE HCL 100 MG TABLET (FP) PO SCH (22:28)
[2017-11-16] MEDS ORDERED: METHADONE HCL 10 MG TABLET ONE (04:20)
[2017-11-16] MEDS ORDERED: METHADONE HCL 5 MG TABLET ONE (04:21)
[2017-11-16] MEDS: METHADONE 30 MG, METHADONE 5 MG PO SCH (05:30)
[2017-11-16] MEDS: chlordiazePOXIDE 5 MG CAPSULE PO SCH ×2 (05:31→10:27)
[2017-11-16] MEDS: PRENATAL VITAMINS W/ FOLIC ACID TABLET (FP) PO SCH (10:27)
[2017-11-16] MEDS: amLODIPine BESYLATE 10 MG TABLET (FP) PO SCH (10:27)
[2017-11-16] MEDS: PANTOPRAZOLE 40 MG TABLET (FP) PO SCH (10:27)
[2017-11-16] MEDS: NICOTINE 14 MG/24 HOURS TOPICAL PATCH TD SCH (10:27)
[2017-11-16] MEDS: ESCITALOPRAM OXALATE 10 MG TABLET (FP) PO SCH (10:27)
[2017-11-16] MEDS ORDERED: BISACODYL 5 MG TABLET.DR (FP) PO ONE (10:30)
--- NOTE | 2017-11-16 12:21 | PN ---
BHS Progress Note (SOAP) Subjective: Stomach ache, constipation (request dulcolax, doesn't want citroma), nausea, interrupted sleep Objective: 11/16/17 12:20 Last Vital Signs Temp Pulse Resp BP Pulse Ox 98.1 F 77 16 127/70 11/16/17 11:09 11/16/17 11:09 11/16/17 11:09 11/16/17 11:09 Laboratory Tests 11/13/17 11/13/17 11/14/17 11:30 14:40 05:40 WBC 5.9 RBC 3.99 L Hgb 12.4 Hct 37.8 MCV 94.7 MCH 31.0 MCHC 32.8 RDW 15.2 Plt Count 276 MPV 8.7 D Sodium Potassium Chloride Carbon Dioxide Anion Gap BUN Creatinine Creat Clearance w eGFR Random Glucose Calcium Total Bilirubin AST ALT Alkaline Phosphatase Total Protein Albumin Urine Color Straw Urine Appearance Clear Urine pH 6.0 Ur Specific [place] 1.008 Urine Protein Negative Urine Glucose (UA) Negative Urine Ketones Negative Urine Blood Negative Urine Nitrite Negative Urine Bilirubin Negative Urine Urobilinogen Negative Ur Leukocyte Esterase Negative RPR Titer HIV 1&2 Antibody Screen Negative HIV P24 Antigen Negative 11/14/17 11/14/17 05:40 05:40 WBC RBC Hgb Hct MCV MCH MCHC RDW Plt Count MPV Sodium 134 L Potassium 4.4 Chloride 102 Carbon Dioxide 25 Anion Gap 7 L BUN 7 D Creatinine 0.7 D Creat Clearance w eGFR > 60 Random Glucose 98 D Calcium 8.8 Total Bilirubin 0.6 D AST 55 H ALT 30 D Alkaline Phosphatase 165 H Total Protein 9.2 H Albumin 3.7 Urine Color Urine Appearance Urine pH Ur Specific [place] Urine Protein Urine Glucose (UA) Urine Ketones Urine Blood Urine Nitrite Urine Bilirubin Urine Urobilinogen Ur Leukocyte Esterase RPR Titer Nonreactive HIV 1&2 Antibody Screen HIV P24 Antigen Labs noted Assessment: 11/16/17 12:20 Withdrawal symptoms Plan: Continue detox Encouraged to drink more water for hydration
[2017-11-16] MEDS: chlordiazePOXIDE HCL 10 MG CAPSULE PO SCH ×2 (17:26→22:29)
[2017-11-16] MEDS: THIAMINE HCL 100 MG TABLET (FP) PO SCH (22:29)
[2017-11-16] MEDS: QUEtiapine FUMARATE 50 MG TABLET PO SCH (22:29)
[2017-11-17] MEDS: chlordiazePOXIDE HCL 10 MG CAPSULE PO SCH ×2 (05:29→11:03)
[2017-11-17] MEDS ORDERED: METHADONE HCL 10 MG TABLET ONE (05:30)
[2017-11-17] MEDS: METHADONE 30 MG, METHADONE 5 MG PO SCH (05:31)
[2017-11-17] MEDS ORDERED: METHADONE HCL 5 MG TABLET ONE (05:31)
[2017-11-17] MEDS: ESCITALOPRAM OXALATE 10 MG TABLET (FP) PO SCH (11:03)
[2017-11-17] MEDS: PRENATAL VITAMINS W/ FOLIC ACID TABLET (FP) PO SCH (11:03)
[2017-11-17] MEDS: PANTOPRAZOLE 40 MG TABLET (FP) PO SCH (11:04)
[2017-11-17] MEDS: amLODIPine BESYLATE 10 MG TABLET (FP) PO SCH (11:04)
[2017-11-17] MEDS: NICOTINE 14 MG/24 HOURS TOPICAL PATCH TD SCH (11:04)
--- NOTE | 2017-11-17 13:03 | PN ---
S Progress Note (SOAP) Subjective: Diarrhea since yesterday (yesterday patient c/o constipation and requested dulcolax, now c/o diarrhea), vomited x 2 this morning, nausea, poor appetite Objective: 11/17/17 13:00 Last Vital Signs Temp Pulse Resp BP Pulse Ox 97.8 F 94 H 18 135/76 11/17/17 10:05 11/17/17 10:05 11/17/17 10:05 11/17/17 10:05 Laboratory Tests 11/13/17 11/13/17 11/14/17 11:30 14:40 05:40 WBC 5.9 RBC 3.99 L Hgb 12.4 Hct 37.8 MCV 94.7 MCH 31.0 MCHC 32.8 RDW 15.2 Plt Count 276 MPV 8.7 D Sodium Potassium Chloride Carbon Dioxide Anion Gap BUN Creatinine Creat Clearance w eGFR Random Glucose Calcium Total Bilirubin AST ALT Alkaline Phosphatase Total Protein Albumin Urine Color Straw Urine Appearance Clear Urine pH 6.0 Ur Specific [place] 1.008 Urine Protein Negative Urine Glucose (UA) Negative Urine Ketones Negative Urine Blood Negative Urine Nitrite Negative Urine Bilirubin Negative Urine Urobilinogen Negative Ur Leukocyte Esterase Negative RPR Titer HIV 1&2 Antibody Screen Negative HIV P24 Antigen Negative 11/14/17 11/14/17 05:40 05:40 WBC RBC Hgb Hct MCV MCH MCHC RDW Plt Count MPV Sodium 134 L Potassium 4.4 Chloride 102 Carbon Dioxide 25 Anion Gap 7 L BUN 7 D Creatinine 0.7 D Creat Clearance w eGFR > 60 Random Glucose 98 D Calcium 8.8 Total Bilirubin 0.6 D AST 55 H ALT 30 D Alkaline Phosphatase 165 H Total Protein 9.2 H Albumin 3.7 Urine Color Urine Appearance Urine pH Ur Specific [place] Urine Protein Urine Glucose (UA) Urine Ketones Urine Blood Urine Nitrite Urine Bilirubin Urine Urobilinogen Ur Leukocyte Esterase RPR Titer Nonreactive HIV 1&2 Antibody Screen HIV P24 Antigen Labs noted Assessment: 11/17/17 13:01 Withdrawal symptoms Plan: Continue detox Encouraged to drink lots of water (water pitcher ordered), continue ensure due to poor appetite
[2017-11-17 22:17] VITALS: PULSE 75
[2017-11-17] MEDS: THIAMINE HCL 100 MG TABLET (FP) PO SCH (22:20)
[2017-11-17] MEDS: QUEtiapine FUMARATE 50 MG TABLET PO SCH (22:20)
[2017-11-18] MEDS ORDERED: METHADONE HCL 10 MG TABLET ONE (04:10)
[2017-11-18] MEDS ORDERED: METHADONE HCL 5 MG TABLET ONE (04:11)
[2017-11-18] MEDS: METHADONE 30 MG, METHADONE 5 MG PO SCH (05:53)
[2017-11-18 06:55] VITALS: BP 95/65; TEMP 98.1
[2017-11-18] MEDS: PANTOPRAZOLE 40 MG TABLET (FP) PO SCH (09:14)
[2017-11-18] MEDS: NICOTINE 14 MG/24 HOURS TOPICAL PATCH TD SCH (09:14)
[2017-11-18] MEDS: ESCITALOPRAM OXALATE 10 MG TABLET (FP) PO SCH (09:14)
[2017-11-18] MEDS: amLODIPine BESYLATE 10 MG TABLET (FP) PO SCH (09:14)
--- NOTE | 2017-11-18 14:31 | DS ---
[facility] Detox Discharge Summary Admission Date: 11/13/17 Discharge Date: 11/18/17 - History Present History: Alcohol Dependence, Opioid Dependence Pertinent Past History: Hep C HTN Arthritis Nail Clubbing - Physical Exam Results Vital Signs: Vital Signs Temperature 98.1 F 11/18/17 06:54 Pulse Rate 75 11/18/17 06:54 Respiratory Rate 16 11/18/17 06:54 Blood Pressure 95/65 11/18/17 06:54 O2 Sat by Pulse Oximetry (%) - Treatment Hospital Course: Detox Protocol Followed, Detoxed Safely, Responded well, Discharged Condition Good, Rehab Referral Accepted Patient has Accepted a Rehab Referral to: [facility] - Medication Discharge Medications: Ambulatory Orders Amlodipine Besylate [Norvasc -] 10 mg PO DAILY #30 tablet 09/21/17 Escitalopram Oxalate [Lexapro -] 5 mg PO DAILY #30 tablet 09/21/17 Quetiapine Fumarate [Seroquel -] 50 mg PO HS #30 tablet 09/21/17 Escitalopram Oxalate [Lexapro -] 5 mg PO DAILY #30 tablet 11/13/17 Methadone [Dolophine -] 35 mg PO DAILY@0600 MDD 50 11/13/17 Quetiapine Fumarate [Seroquel -] 50 mg PO HS #30 tablet 11/13/17 - Diagnosis (1) Alcohol dependence with uncomplicated withdrawal Status: Acute (2) Clubbing of nails Status: Chronic (3) Substance induced mood disorder Status: Acute (4) Depressive disorder Status: Chronic (5) Hepatitis C carrier Status: Chronic (6) Hypertension Status: Chronic Qualifiers: Hypertension type: essential hypertension (7) Insomnia Status: Chronic (8) Methadone maintenance therapy patient Status: Chronic (9) Nicotine dependence Status: Chronic - AMA Did Patient Leave Against Medical Advice: No
== END 2017-11-18 08:59 | disposition home or self-care (01) | DRG 753 ==
LOC: YASAS 08:57 → Y3N 10:12
PROVIDERS: ADMIT Internal Medicine; ATTEND Internal Medicine
PROC: HZ2ZZZZ Detoxification Services for Substance Abuse Treatment (ICD-10-PCS; principal; 2017-11-13)
DX: F39 Unspecified mood [affective] disorder (principal); F11.20 Opioid dependence, uncomplicated; F10.230 Alcohol dependence with withdrawal, uncomplicated; F17.210 Nicotine dependence, cigarettes, uncomplicated; F33.9 Major depressive disorder, recurrent, unspecified; F19.24 Other psychoactive substance dependence with psychoactive substance-induced mood disorder; G47.00 Insomnia, unspecified; R68.3 Clubbing of fingers; I10 Essential (primary) hypertension; B18.2 Chronic viral hepatitis C; K21.9 Gastro-esophageal reflux disease without esophagitis; R19.8 Other specified symptoms and signs involving the digestive system and abdomen
CPT/HCPCS: 36415; 80053; 81003; 85027; 86593; 87389; 93005; 93010

== ENCOUNTER 2018-01-18 08:30 | Inpatient (IN) | payer OTHER ==
[2018-01-18 09:43] VITALS: BMI 24.7
--- NOTE | 2018-01-18 13:29 | HP ---
CIWA Score - CIWA Score Nausea/Vomitin Muscle Tremors: 3 Anxiety: 3 Agitation: 3 Paroxysmal Sweats: 1-Minimal Palms Moist Orientation: 0-Oriented Tacttile Disturbances: 1-Very Mild Itch/Numbness Auditory Disturbances: 1-Very Mild Visual Disturbances: 0-None Headache: 2-Mild CIWA-Ar Total Score: 17 Admission ROS BHS - HPI Chief Complaint: i need help to stop drinking alcohol Allergies/Adverse Reactions: Allergies Allergy/AdvReac Type Severity Reaction Status Date / Time No Known Allergies Allergy Verified 01/18/18 10:54 History of Present Illness: this 62 years old male with alcohol dependence,mmtp 50 mgs/day,last mediated 09/26,seeking detox,withdrawal symptom,last detox [facility] in 12/27 anxiety and depression admitted several times in detox nicotine dependence weight loss anxiety depression swelling of right hand in 3 days longest sobriety 3 and half years removal of tumor of liver in 2017 at [facility] - Ebola screening Have you traveled outside of the country in the last 21 days: No Have you had contact with anyone from an Ebola affected area: No Have you been sick,other than usual withdrawal symptoms: No - Review of Systems Constitutional: Loss of Appetite, Malaise, Night Sweats, Changes in sleep, Weakness, Unintentional Wgt. Loss EENT: reports: Nose Congestion Respiratory: reports: No Symptoms reported Cardiac: reports: Palpitations GI: reports: Diarrhea, Nausea, Vomiting, Abdominal cramping, Other (s/p removal of tumor of liver) : reports: No Symptoms Reported Musculoskeletal: reports: Back Pain, Muscle Pain Integumentary: reports: Dryness Neuro: reports: Headache, Tremors Endocrine: reports: No Symptoms Reported Hematology: reports: No Symptoms Reported Psychiatric: reports: Anxious, Depressed Patient History - Patient Medical History Hx Anemia: No Hx Asthma: No Hx Chronic Obstructive Pulmonary Disease (COPD): No Hx Cancer: No Hx Cardiac Disorders: No Hx Congestive Heart Failure: No Hx Hypertension: Yes (Non-compliant with meds.) Hx Hypercholesterolemia: No Hx Pacemaker: No HX Cerebrovascular Accident: No Hx Seizures: No Hx Dementia: No Hx Diabetes: No Hx Gastrointestinal Disorders: Yes (Hx of GERD) Hx Liver Disease: Yes (liver mass resectd at [facility] 2016, has been losing wt since) Hx Genitourinary Disorders: No Hx Sexually Transmitted Disorders: No Hx Renal Disease (ESRD): No Hx Thyroid Disease: No Hx Human Immunodeficiency Virus (HIV): No (NEGATIVE HX) Hx Hepatitis C: Yes (NOT TREATED) Hx Depression: Yes Hx Suicide Attempt: No Hx Bipolar Disorder: No Hx Schizophrenia: No Other Medical History: no sucidal,no homicidal - Patient Surgical History Past Surgical History: Yes Hx Neurologic Surgery: No Hx Cataract Extraction: No Hx Cardiac Surgery: No Hx Lung Surgery: No Hx Breast Surgery: No Hx Breast Biopsy: No Hx Abdominal Surgery: Yes (Liver mass resected In [facility] 2017) Hx Appendectomy: No Hx Cholecystectomy: No Hx Genitourinary Surgery: No Hx Section: No Hx Orthopedic Surgery: No Hx Hysterectomy: No Anesthesia Reaction: No - PPD History Previous Implant?: Yes Documented Results: Positive w/proof Implanted On Prior [facility] Admission?: Yes Date: 09/02/17 Results: 0mm - Smoking Cessation Smoking history: Current every day smoker Have you smoked in the past 12 months: Yes Aproximately how many cigarettes per day: 10 Cigars Per Day: 0 Hx Chewing Tobacco Use: No Initiated information on smoking cessation: Yes 'Breaking Loose' booklet given: 01/18/18 - Substance & Tx. History Hx Alcohol Use: Yes Hx Substance Use: Yes Substance Use Type: Alcohol, Marijuana Hx Substance Use Treatment: Yes ([facility] 12/27) - Substances Abused Alcohol Route: Oral Frequency: Daily Amount used: 20 beers/ 1 pint vodka Age of first use: 15 Date of Last Use: 01/18/18 Marijuana/Hashish Route: Smoking Frequency: 1-2 times per week Amount used: $5 Age of first use: 14 Date of Last Use: 01/17/18 Family Disease History - Family Disease History Family Disease History: CA: Father Admission Physical Exam BHS - Vital Signs Vital Signs: Vital Signs - 24 hr 01/18/18 01/18/18 09:38 09:42 Temperature 98.0 F 98.0 F Pulse Rate 118 H 118 H Respiratory 20 20 Rate Blood Pressure 165/94 165/94 - Physical General Appearance: Yes: Moderate Distress, Tremorous, Irritable, Sweating, Anxious HEENTM: Yes: Normocephalic, LORAINE, Tm's normal Respiratory: Yes: Lungs Clear, Normal Breath Sounds, No Respiratory Distress Neck: Yes: Within Normal Limits, Supple, Trachea in good position Breast: Yes: Within Normal Limits Cardiology: Yes: Tachycardia Abdominal: Yes: Normal Bowel Sounds, Non Tender, Flat, Soft, Surgical Scar (s/p resection of tumor of liver) Genitourinary: Yes: Within Normal Limits Back: Yes: Within Normal Limits, Muscle Spasm Musculoskeletal: Yes: full range of Motion, Back pain, Muscle Pain Extremities: Yes: Normal Range of Motion, Tremors Neurological: Yes: infection control specialist II-XII NML intact, Fully Oriented, Alert, Motor Strength 5/5 Integumentary: Yes: Dry, Other (swelling with erythema of right hand ,cellulitis ) Lymphatic: Yes: Within Normal Limits - Diagnostic (1) Alcohol dependence with uncomplicated withdrawal Current Visit: Yes Status: Acute (2) Cellulitis of right hand Current Visit: Yes Status: Acute (3) Arthritis, shoulder region Current Visit: No Status: Acute (4) Opioid dependence on agonist therapy Current Visit: Yes Status: Acute (5) GERD (gastroesophageal reflux disease) Current Visit: No Status: Chronic (6) Hypertension Current Visit: No Status: Chronic Qualifiers: Hypertension type: essential hypertension Qualified Code(s): I10 - Essential (primary) hypertension Comment: FORGOT NAME OF MEDICINE BUT LAST TOOK IT LAST WEEK. SEES DR CALVERT [facility] (7) Nicotine dependence Current Visit: Yes Status: Acute (8) Anxiety and depression Current Visit: Yes Status: Acute Cleared for Admission [facility] - Detox or Rehab [facility] Level of Care: Medically Managed Detox Regimen/Protocol: Librium S Breath Alcohol Content Breath Alcohol Content: 0 Urine Drug Screen - Results Urine Drug Screen Results: PCP-Phencyclidine
[2018-01-18] MEDS ORDERED: NICOTINE POLACRILEX 2 MG GUM BUC PRN (13:40)
[2018-01-18] MEDS ORDERED: IBUPROFEN 400 MG TABLET (FP) PO PRN (13:40)
[2018-01-18] MEDS ORDERED: LOPERAMIDE HCL 2 MG CAPSULE PO PRN (13:40)
[2018-01-18] MEDS ORDERED: MAGNESIUM HYDROX 2400MG/30ML ORAL SUSPENSION 30 ML CUP PO PRN (13:40)
[2018-01-18] MEDS ORDERED: ACETAMINOPHEN 325 MG TABLET (FP) PO PRN (13:40)
[2018-01-18] MEDS ORDERED: guaiFENesin/D-METHORPHAN HB 10 ML UNIT-DOSE CUPS PO PRN (13:40)
[2018-01-18] MEDS ORDERED: MAG HYDROX/AL HYDROX/SIMETH 30 ML UNIT-DOSE CUP PO PRN (13:40)
[2018-01-18] MEDS ORDERED: P-EPHED 60MG/TRIPROLIDI 2.5MG TABLET PO PRN (13:40)
[2018-01-18] MEDS ORDERED: hydrOXYzine PAMOATE 25 MG CAPSULE (FP) PO PRN (13:40)
[2018-01-18] MEDS ORDERED: MENTHOL/PHENOL 1 EACH UD MM PRN (13:40)
[2018-01-18] MEDS ORDERED: chlordiazePOXIDE HCL 25 MG CAPSULE PO PRN (13:40)
[2018-01-18] MEDS ORDERED: MAGNESIUM CITRATE 300 ML BOTTLE PO PRN (13:40)
[2018-01-18] MEDS ORDERED: METHADONE HCL 10 MG TABLET PO ONE (13:48)
[2018-01-18] MEDS ORDERED: chlordiazePOXIDE HCL 25 MG CAPSULE PO ONE (13:55)
[2018-01-18] MEDS ORDERED: METHADONE 40 MG, METHADONE 10 MG PO ONE (14:00)
[2018-01-18] MEDS ORDERED: METHADONE HCL 10 MG TABLET ONE (15:15)
[2018-01-18] MEDS ORDERED: METHADONE HCL 40 MG DISPERSABLE TABLET ONE (15:15)
[2018-01-18] MEDS: NICOTINE 21 MG/24 HOURS TOPICAL PATCH TD SCH (15:22)
[2018-01-18] MEDS: amLODIPine BESYLATE 10 MG TABLET (FP) PO SCH (15:22)
--- NOTE | 2018-01-18 15:48 | CONSULT ---
[facility] Psychiatric Consult - Data Date of interview: 01/18/18 Admission source: [facility] Identifying data: Re-admission to [facility] for this 62 y/o [place] male seeking detox treatment on for alcohol and marihuana dependence.Patient is ,a father of two,homeless,unemployed and supported on SSI benefits. Substance Abuse History: Discussed in this interview.Mr Phelps admits to daily use of alcohol (vodka + beer) and marijuana.Aknowledges a 40 + year history of dependence (both substances). Details in current [facility] report drawn on admission : Smoking history: Current every day smoker. Have you smoked in the past 12 months: Yes. Aproximately how many cigarettes per day: 10. Cigars Per Day: 0. Hx Chewing Tobacco Use: No. Initiated information on smoking cessation: Yes. 'Breaking Loose' booklet given: 01/18/18. - Substance & Tx. History. Hx Alcohol Use: Yes. Hx Substance Use: Yes. Substance Use Type: Alcohol, Marijuana. Hx Substance Use Treatment: Yes ([facility] 12/27). - Substances Abused. Alcohol. Route: Oral. Frequency: Daily. Amount used: 20 beers/ 1 pint vodka. Age of first use: 15. Date of Last Use: 01/18/18. Marijuana/Hashish. Route: Smoking. Frequency: 1-2 times per week. Amount used : $5. Age of first use: 14. Date of Last Use: 01/17/18 Medical History: No changes in medical profile since last encounter of November 2017 : history of hepatic mass (resected at [facility] in 2017), hypertension,hepatitis C,lower back pain and arthritis (both hands). Psychiatric History: No reported history of psychiatric hospitalizations.Diagnosed with MDD and Anxiety Disorder.Mr Phelps is currently followed at [facility] (methadone maintenance : 50 mg/day) under the care of Dr Chavarria. Patient is maintained on a regimen of seroquel 50 mg po hs + trazodone 50 mg/hs.He endorses good adherence to his medications.Patient denies history of suicide attempts. Physical/Sexual Abuse/Trauma History: Patient denies. Additional Comment: Urine Drug Screen Results: PCP-Phencyclidine.Noted. Mental Status Exam - Mental Status Exam Alert and Oriented to: Time, Place, Person Cognitive Function: Good Patient Appearance: Well Groomed Mood: Nervous, Withdrawn, Anxious Affect: Mood Congruent, Constricted Patient Behavior: Fatigued, Appropriate, Cooperative Speech Pattern: Clear (bilingual), Appropriate Voice Loudness: Normal Thought Process: Intact, Goal Oriented Thought Disorder: Not Present Hallucinations: Denies Suicidal Ideation: Denies Homicidal Ideation: Denies Insight/Judgement: Poor Sleep: Poorly, Difficulty falling asleep Appetite: Good Muscle strength/Tone: Normal Gait/Station: Normal Psychiatric Findings - Problem List ([place] 1, 2,3) (1) Alcohol dependence with uncomplicated withdrawal Current Visit: Yes Status: Acute (2) Opioid dependence on agonist therapy Current Visit: Yes Status: Acute (3) Nicotine dependence Current Visit: Yes Status: Acute (4) Substance induced mood disorder Current Visit: Yes Status: Acute (5) Insomnia Current Visit: Yes Status: Acute - Initial Treatment Plan Initial Treatment Plan: Records revisited.Psychoeducation provided in this session.Sleep hygiene discussed.Detoxification initiated.Medications reconciled : seroquel 50 mg po hs + trazodone 50 mg po hs.Side effects/benefts of both drugs are discussed with patient.He is made aware of the risk of oversedation, metabolic syndrome,abnormal involuntary movements,cardiovascular adverse events and priapism.Mr Phelps reports his medications as effective and well tolerated over months of treatment.Consented (verbally) to this careplan.Observation.
[2018-01-18] MEDS ORDERED: cloNIDine HCL 0.1 MG TABLET PO ONE ×2 (17:45→18:20)
[2018-01-18] MEDS: chlordiazePOXIDE HCL 25 MG CAPSULE PO SCH ×2 (18:13→22:30)
[2018-01-18] MEDS: CEPHALEXIN MONOHYDRATE 500 MG CAPSULE (UD) PO SCH ×2 (18:13→23:43)
[2018-01-18] MEDS: traZODone HCL 50 MG TABLET (FP) PO SCH (22:30)
[2018-01-18] MEDS: THIAMINE HCL 100 MG TABLET (FP) PO SCH (22:30)
[2018-01-18] MEDS: QUEtiapine FUMARATE 50 MG TABLET PO SCH (22:30)
[2018-01-19] MEDS ORDERED: METHADONE HCL 10 MG TABLET ONE (04:29)
[2018-01-19] MEDS ORDERED: METHADONE HCL 40 MG DISPERSABLE TABLET ONE (04:29)
[2018-01-19] MEDS: METHADONE 40 MG, METHADONE 10 MG PO SCH (05:27)
[2018-01-19] MEDS: CEPHALEXIN MONOHYDRATE 500 MG CAPSULE (UD) PO SCH ×4 (05:27→23:44)
[2018-01-19] MEDS: chlordiazePOXIDE HCL 25 MG CAPSULE PO SCH ×4 (05:27→22:04)
[2018-01-19] MEDS ORDERED: METHADONE HCL 10 MG TABLET PO SCH (06:00)
[2018-01-19 10:05] LABS: HEMATOCRIT 34.6 % (35.4-49); HEMOGLOBIN 11.9 GM/dL (11.7-16.9); MCH 32.5 pg (25.7-33.7); MCHC 34.5 g/dl (32.0-35.9); MEAN CELL VOLUME 94.2 fl (80-96); MEAN PLT VOLUME 8.2 fl (7.5-11.1); PLATELET COUNT 403 K/MM3 (134-434); RBC 3.67 M/mm3 (4.00-5.60); RDW 17.2 % (11.9-15.9); WHITE BLOOD COUNT 6.5 K/mm3 (4.0-10.0)
[2018-01-19 10:06] LABS: URINE APPEARANCE CLEAR; URINE BILIRUBIN NEGATIVE (NEGATIVE); URINE BLOOD NEGATIVE (NEGATIVE); URINE COLOR YELLOW; URINE GLUCOSE (UA) NEGATIVE (NEGATIVE); URINE KETONE NEGATIVE (NEGATIVE); URINE LEUK ESTERASE TRACE (NEGATIVE); URINE NITRITE NEGATIVE (NEGATIVE); URINE PROTEIN NEGATIVE (NEGATIVE)
[2018-01-19 10:09] LABS: URINE HYALINE CAST 57 /lpf; URINE MUCUS RARE
[2018-01-19 10:19] LABS: CHLORIDE 101 mmol/L (98-107); POTASSIUM 4.4 mmol/L (3.5-5.1); SODIUM 135 mmol/L (136-145)
[2018-01-19 10:23] LABS: ALBUMIN 3.5 g/dl (3.4-5.0); ALK PHOS 157 U/L (45-117); ANION GAP 12 (8-16); BILIRUBIN,TOTAL 0.4 mg/dL (0.2-1.0); BLOOD UREA NITROGEN 12 mg/dL (7-18); CALCIUM 9.2 mg/dL (8.5-10.1); CO2 22 mmol/L (21-32); CREATININE 0.7 mg/dL (0.7-1.3); GLUCOSE,RANDOM 111 mg/dL (74-106); SGOT/AST 56 U/L (15-37); SGPT/ALT 25 U/L (12-78); TOT PROT 9.3 g/dl (6.4-8.2)
[2018-01-19] MEDS ORDERED: ONDANSETRON *ODT* 4 MG TABLET SL PRN (10:33)
[2018-01-19] MEDS: amLODIPine BESYLATE 10 MG TABLET (FP) PO SCH (10:46)
[2018-01-19] MEDS: PRENATAL VITAMINS W/ FOLIC ACID TABLET (FP) PO SCH (10:46)
[2018-01-19] MEDS: NICOTINE 21 MG/24 HOURS TOPICAL PATCH TD SCH (10:46)
[2018-01-19] MEDS ORDERED: FLU VACCINE QUAD 60 MCG/0.5 ML (MDV 17-18) IM ONE (12:00)
--- NOTE | 2018-01-19 12:04 | PN ---
S CIWA - CIWA Score Nausea/Vomitin Muscle Tremors: 2 Anxiety: 3 Agitation: 4-Moderately Restless Paroxysmal Sweats: No Perspiration Orientation: 0-Oriented Tacttile Disturbances: 1-Very Mild Itch/Numbness Auditory Disturbances: 2-Mild Harshness/Frighten Visual Disturbances: 0-None Headache: 3-Moderate CIWA-Ar Total Score: 18 BHS Progress Note (SOAP) Subjective: Nausea, Fatigue, H/A, Body Aches, Tremors. Objective: PATIENT A & O X 3, OBSERVED AMBULATING ON UNIT. NO ACUTE DISTRESS. 01/19/18 12:02 Vital Signs Temperature 98.7 F 01/19/18 10:07 Pulse Rate 96 H 01/19/18 10:07 Respiratory Rate 18 01/19/18 10:07 Blood Pressure 115/70 01/19/18 10:07 O2 Sat by Pulse Oximetry (%) Laboratory Tests 01/18/18 01/19/18 01/19/18 11:10 06:00 06:00 WBC 6.5 RBC 3.67 L Hgb 11.9 Hct 34.6 L MCV 94.2 MCH 32.5 MCHC 34.5 RDW 17.2 H D Plt Count 403 D MPV 8.2 Sodium 135 L Potassium 4.4 Chloride 101 Carbon Dioxide 22 Anion Gap 12 BUN 12 D Creatinine 0.7 Creat Clearance w eGFR > 60 Random Glucose 111 H Calcium 9.2 Total Bilirubin 0.4 D AST 56 H ALT 25 Alkaline Phosphatase 157 H Total Protein 9.3 H Albumin 3.5 Urine Color Urine Appearance Urine pH Ur Specific [place] Urine Protein Urine Glucose (UA) Urine Ketones Urine Blood Urine Nitrite Urine Bilirubin Urine Urobilinogen Ur Leukocyte Esterase Urine WBC (Auto) Urine RBC (Auto) Hyaline Casts Urine Mucus HIV 1&2 Antibody Screen Negative HIV P24 Antigen Negative 01/19/18 08:15 WBC RBC Hgb Hct MCV MCH MCHC RDW Plt Count MPV Sodium Potassium Chloride Carbon Dioxide Anion Gap BUN Creatinine Creat Clearance w eGFR Random Glucose Calcium Total Bilirubin AST ALT Alkaline Phosphatase Total Protein Albumin Urine Color Yellow Urine Appearance Clear Urine pH 6.0 Ur Specific [place] 1.020 Urine Protein Negative Urine Glucose (UA) Negative Urine Ketones Negative Urine Blood Negative Urine Nitrite Negative Urine Bilirubin Negative Urine Urobilinogen 2.0 Ur Leukocyte Esterase Trace Urine WBC (Auto) 1 Urine RBC (Auto) None Hyaline Casts 57 Urine Mucus Rare HIV 1&2 Antibody Screen HIV P24 Antigen LABS NOTED. RPR RESULT PENDING. 01/19/18 12:03 Assessment: 01/19/18 12:02 WITHDRAWAL SYMPTOMS. Plan: CONTINUE DETOX. INCREASE DAILY PO FLUID INTAKE.
--- NOTE | 2018-01-19 12:15 | EKG ---
Test Reason : Blood Pressure : / mmHG Vent. Rate : 090 BPM Atrial Rate : 090 BPM P-R Int : 140 ms QRS Dur : 070 ms QT Int : 354 ms P-R-T Axes : 061 033 027 degrees QTc Int : 433 ms NORMAL SINUS RHYTHM NORMAL ECG WHEN COMPARED WITH ECG OF 13-NOV-2017 12:59, NO SIGNIFICANT CHANGE WAS FOUND Confirmed by MD JAEL, NOEMI ([id number]) on 01/19/2018 12:14:51 PM Referred By: Confirmed By:NOEMI ELDER MD
[2018-01-19] MEDS: THIAMINE HCL 100 MG TABLET (FP) PO SCH (22:04)
[2018-01-19] MEDS: QUEtiapine FUMARATE 50 MG TABLET PO SCH (22:04)
[2018-01-19] MEDS: traZODone HCL 50 MG TABLET (FP) PO SCH (22:04)
[2018-01-20] MEDS ORDERED: METHADONE HCL 40 MG DISPERSABLE TABLET ONE (03:58)
[2018-01-20] MEDS ORDERED: METHADONE HCL 10 MG TABLET ONE (03:58)
[2018-01-20] MEDS: chlordiazePOXIDE HCL 25 MG CAPSULE PO SCH ×2 (05:50→10:47)
[2018-01-20] MEDS: CEPHALEXIN MONOHYDRATE 500 MG CAPSULE (UD) PO SCH ×4 (05:50→23:44)
[2018-01-20] MEDS: METHADONE 40 MG, METHADONE 10 MG PO SCH (05:50)
--- NOTE | 2018-01-20 09:54 | PN ---
[facility] CIWA - CIWA Score Nausea/Vomitin Muscle Tremors: 2 Anxiety: 2 Agitation: 2 Paroxysmal Sweats: 3 Orientation: 0-Oriented Tacttile Disturbances: 2-Mild Itch/Numbness/Burn Auditory Disturbances: 0-None Visual Disturbances: 0-None Headache: 0-None Present CIWA-Ar Total Score: 14 S Progress Note (SOAP) Subjective: interrupted sleep, sweats,constipation Objective: 01/20/18 09:53 Vital Signs Temperature 98.6 F 01/20/18 06:14 Pulse Rate 74 01/20/18 06:14 Respiratory Rate 18 01/20/18 06:14 Blood Pressure 106/61 01/20/18 06:14 O2 Sat by Pulse Oximetry (%) Laboratory Tests 01/18/18 01/19/18 01/19/18 11:10 06:00 06:00 WBC 6.5 RBC 3.67 L Hgb 11.9 Hct 34.6 L MCV 94.2 MCH 32.5 MCHC 34.5 RDW 17.2 H D Plt Count 403 D MPV 8.2 Sodium 135 L Potassium 4.4 Chloride 101 Carbon Dioxide 22 Anion Gap 12 BUN 12 D Creatinine 0.7 Creat Clearance w eGFR > 60 Random Glucose 111 H Calcium 9.2 Total Bilirubin 0.4 D AST 56 H ALT 25 Alkaline Phosphatase 157 H Total Protein 9.3 H Albumin 3.5 Urine Color Urine Appearance Urine pH Ur Specific [place] Urine Protein Urine Glucose (UA) Urine Ketones Urine Blood Urine Nitrite Urine Bilirubin Urine Urobilinogen Ur Leukocyte Esterase Urine WBC (Auto) Urine RBC (Auto) Hyaline Casts Urine Mucus RPR Titer HIV 1&2 Antibody Screen Negative HIV P24 Antigen Negative 01/19/18 01/19/18 06:00 08:15 WBC RBC Hgb Hct MCV MCH MCHC RDW Plt Count MPV Sodium Potassium Chloride Carbon Dioxide Anion Gap BUN Creatinine Creat Clearance w eGFR Random Glucose Calcium Total Bilirubin AST ALT Alkaline Phosphatase Total Protein Albumin Urine Color Yellow Urine Appearance Clear Urine pH 6.0 Ur Specific [place] 1.020 Urine Protein Negative Urine Glucose (UA) Negative Urine Ketones Negative Urine Blood Negative Urine Nitrite Negative Urine Bilirubin Negative Urine Urobilinogen 2.0 Ur Leukocyte Esterase Trace Urine WBC (Auto) 1 Urine RBC (Auto) None Hyaline Casts 57 Urine Mucus Rare RPR Titer Nonreactive HIV 1&2 Antibody Screen HIV P24 Antigen pt aox3 in nad ambulating Assessment: 01/20/18 09:54 withdrawal sx's constipation Plan: cont. detox increase fluids colace 100mg tid
[2018-01-20] MEDS: PRENATAL VITAMINS W/ FOLIC ACID TABLET (FP) PO SCH (10:47)
[2018-01-20] MEDS: amLODIPine BESYLATE 10 MG TABLET (FP) PO SCH (10:47)
[2018-01-20] MEDS: NICOTINE 21 MG/24 HOURS TOPICAL PATCH TD SCH (10:49)
[2018-01-20] MEDS: DOCUSATE SODIUM 100 MG CAPSULE (FP) PO SCH ×2 (14:27→22:10)
[2018-01-20] MEDS: chlordiazePOXIDE 5 MG CAPSULE PO SCH ×2 (18:33→22:10)
[2018-01-20] MEDS: QUEtiapine FUMARATE 50 MG TABLET PO SCH (22:10)
[2018-01-20] MEDS: THIAMINE HCL 100 MG TABLET (FP) PO SCH (22:10)
[2018-01-20] MEDS: traZODone HCL 50 MG TABLET (FP) PO SCH (22:10)
[2018-01-21] MEDS ORDERED: METHADONE HCL 40 MG DISPERSABLE TABLET ONE (04:20)
[2018-01-21] MEDS ORDERED: METHADONE HCL 10 MG TABLET ONE (04:20)
[2018-01-21] MEDS: CEPHALEXIN MONOHYDRATE 500 MG CAPSULE (UD) PO SCH (05:37)
[2018-01-21] MEDS: METHADONE 40 MG, METHADONE 10 MG PO SCH (05:37)
[2018-01-21] MEDS: DOCUSATE SODIUM 100 MG CAPSULE (FP) PO SCH (05:37)
[2018-01-21] MEDS: chlordiazePOXIDE 5 MG CAPSULE PO SCH ×2 (05:38→10:44)
[2018-01-21] MEDS: NICOTINE 21 MG/24 HOURS TOPICAL PATCH TD SCH (10:43)
[2018-01-21] MEDS: PRENATAL VITAMINS W/ FOLIC ACID TABLET (FP) PO SCH (10:43)
[2018-01-21] MEDS: amLODIPine BESYLATE 10 MG TABLET (FP) PO SCH (10:44)
[2018-01-21 11:11] VITALS: BP 118/70; PULSE 88; TEMP 97.6
--- NOTE | 2018-01-21 14:42 | PN ---
BHS Progress Note (SOAP) Subjective: Sweating, Anxious, Tremors, Nausea, Interrupted Sleep. Objective: PATIENT A & O X 3, OBSERVED AMBULATING ON UNIT. NO ACUTE DISTRESS. 01/21/18 14:41 Vital Signs Temperature 97.6 F 01/21/18 10:00 Pulse Rate 88 01/21/18 10:00 Respiratory Rate 20 01/21/18 10:00 Blood Pressure 118/70 01/21/18 10:00 O2 Sat by Pulse Oximetry (%) Laboratory Tests 01/18/18 01/19/18 01/19/18 11:10 06:00 06:00 WBC 6.5 RBC 3.67 L Hgb 11.9 Hct 34.6 L MCV 94.2 MCH 32.5 MCHC 34.5 RDW 17.2 H D Plt Count 403 D MPV 8.2 Sodium 135 L Potassium 4.4 Chloride 101 Carbon Dioxide 22 Anion Gap 12 BUN 12 D Creatinine 0.7 Creat Clearance w eGFR > 60 Random Glucose 111 H Calcium 9.2 Total Bilirubin 0.4 D AST 56 H ALT 25 Alkaline Phosphatase 157 H Total Protein 9.3 H Albumin 3.5 Urine Color Urine Appearance Urine pH Ur Specific [place] Urine Protein Urine Glucose (UA) Urine Ketones Urine Blood Urine Nitrite Urine Bilirubin Urine Urobilinogen Ur Leukocyte Esterase Urine WBC (Auto) Urine RBC (Auto) Hyaline Casts Urine Mucus RPR Titer HIV 1&2 Antibody Screen Negative HIV P24 Antigen Negative 01/19/18 01/19/18 06:00 08:15 WBC RBC Hgb Hct MCV MCH MCHC RDW Plt Count MPV Sodium Potassium Chloride Carbon Dioxide Anion Gap BUN Creatinine Creat Clearance w eGFR Random Glucose Calcium Total Bilirubin AST ALT Alkaline Phosphatase Total Protein Albumin Urine Color Yellow Urine Appearance Clear Urine pH 6.0 Ur Specific [place] 1.020 Urine Protein Negative Urine Glucose (UA) Negative Urine Ketones Negative Urine Blood Negative Urine Nitrite Negative Urine Bilirubin Negative Urine Urobilinogen 2.0 Ur Leukocyte Esterase Trace Urine WBC (Auto) 1 Urine RBC (Auto) None Hyaline Casts 57 Urine Mucus Rare RPR Titer Nonreactive HIV 1&2 Antibody Screen HIV P24 Antigen LABS NOTED. Assessment: 01/21/18 14:41 WITHDRAWAL SYMPTOMS. Plan: CONTINUE DETOX.
--- NOTE | 2018-01-21 14:48 | DS ---
[facility] Detox Discharge Summary Admission Date: 01/18/18 Discharge Date: 01/21/18 - History Present History: Alcohol Dependence Additional Comments: PATIENT DOES NOT WISH TO STAY TO COMPLETE DETOX REGIMEN. RISKS OF LEAVING DETOX UNIT AGAINST MEDICAL ADVICE AND PRIOR TO COMPLETION OF DETOX REGIMEN EXPLAINED TO PATIENT. PATIENT ADVISED TO GO IMMEDIATELY TO NEAREST ER SHOULD ANY INTOLERABLE DETOX SYMPTOMS DEVELOP AT ANY TIME. PATIENT LEFT DETOX UNIT IN STABLE MEDICAL CONDITION. Pertinent Past History: MMTP, Hep C, History of Liver Mass (Surgically Resected), Depression, GERD, Nicotine Dependence, Cellulitis of Right Hand, Arthritis of Shoulder, Insomnia. - Physical Exam Results Vital Signs: Vital Signs Temperature 97.6 F 01/21/18 10:00 Pulse Rate 88 01/21/18 10:00 Respiratory Rate 20 01/21/18 10:00 Blood Pressure 118/70 01/21/18 10:00 O2 Sat by Pulse Oximetry (%) Pertinent Admission Physical Exam Findings: WITHDRAWAL SYMPTOMS. Laboratory Tests 01/18/18 01/19/18 01/19/18 11:10 06:00 06:00 WBC 6.5 RBC 3.67 L Hgb 11.9 Hct 34.6 L MCV 94.2 MCH 32.5 MCHC 34.5 RDW 17.2 H D Plt Count 403 D MPV 8.2 Sodium 135 L Potassium 4.4 Chloride 101 Carbon Dioxide 22 Anion Gap 12 BUN 12 D Creatinine 0.7 Creat Clearance w eGFR > 60 Random Glucose 111 H Calcium 9.2 Total Bilirubin 0.4 D AST 56 H ALT 25 Alkaline Phosphatase 157 H Total Protein 9.3 H Albumin 3.5 Urine Color Urine Appearance Urine pH Ur Specific [place] Urine Protein Urine Glucose (UA) Urine Ketones Urine Blood Urine Nitrite Urine Bilirubin Urine Urobilinogen Ur Leukocyte Esterase Urine WBC (Auto) Urine RBC (Auto) Hyaline Casts Urine Mucus RPR Titer HIV 1&2 Antibody Screen Negative HIV P24 Antigen Negative 01/19/18 01/19/18 06:00 08:15 WBC RBC Hgb Hct MCV MCH MCHC RDW Plt Count MPV Sodium Potassium Chloride Carbon Dioxide Anion Gap BUN Creatinine Creat Clearance w eGFR Random Glucose Calcium Total Bilirubin AST ALT Alkaline Phosphatase Total Protein Albumin Urine Color Yellow Urine Appearance Clear Urine pH 6.0 Ur Specific [place] 1.020 Urine Protein Negative Urine Glucose (UA) Negative Urine Ketones Negative Urine Blood Negative Urine Nitrite Negative Urine Bilirubin Negative Urine Urobilinogen 2.0 Ur Leukocyte Esterase Trace Urine WBC (Auto) 1 Urine RBC (Auto) None Hyaline Casts 57 Urine Mucus Rare RPR Titer Nonreactive HIV 1&2 Antibody Screen HIV P24 Antigen LABS NOTED. - Treatment Hospital Course: Detoxed Safely - Medication Discharge Medications: Ambulatory Orders Amlodipine Besylate [Norvasc -] 10 mg PO DAILY #30 tablet 09/21/17 Trazodone HCl 50 mg PO HS 01/18/18 Quetiapine Fumarate [Seroquel -] 50 mg PO HS #30 tablet 01/20/18 - Diagnosis (1) Alcohol dependence with uncomplicated withdrawal Status: Chronic (2) Anxiety and depression Status: Acute (3) Cellulitis of right hand Status: Acute (4) Insomnia Status: Acute Qualifiers: Insomnia type: unspecified Qualified Code(s): G47.00 - Insomnia, unspecified (5) Nicotine dependence Status: Chronic (6) Opioid dependence on agonist therapy Status: Chronic (7) Arthritis, shoulder region Status: Acute (8) Substance induced mood disorder Status: Acute - AMA Did Patient Leave Against Medical Advice: Yes (PATIENT DID NOT WISH TO STAY TO COMPLETE DETOX REGIMEN.)
[2018-01-21] MEDS ORDERED: chlordiazePOXIDE HCL 10 MG CAPSULE PO SCH (17:00)
== END 2018-01-21 11:15 | disposition left against medical advice (07) | DRG 770 ==
LOC: YASAS 08:30 → Y3N 12:55
PROVIDERS: ADMIT Internal Medicine; ATTEND Internal Medicine
PROC: HZ2ZZZZ Detoxification Services for Substance Abuse Treatment (ICD-10-PCS; principal; 2018-01-18)
DX: F11.20 Opioid dependence, uncomplicated (principal); F10.230 Alcohol dependence with withdrawal, uncomplicated; F17.210 Nicotine dependence, cigarettes, uncomplicated; F19.24 Other psychoactive substance dependence with psychoactive substance-induced mood disorder; F41.8 Other specified anxiety disorders; G47.00 Insomnia, unspecified; B18.2 Chronic viral hepatitis C; K21.9 Gastro-esophageal reflux disease without esophagitis; L03.113 Cellulitis of right upper limb; M13.819 Other specified arthritis, unspecified shoulder; R63.4 Abnormal weight loss; Z68.24 Body mass index [BMI] 24.0-24.9, adult
CPT/HCPCS: 36415; 73110-TC-RT-FY; 73130-TC-RT-FY; 80053; 81003; 81015; 85027; 86593; 87389; 93005; 93010; J0735; Q0162

== ENCOUNTER 2018-03-17 12:16 | Inpatient (IN) | payer OTHER ==
[2018-03-17 12:51] VITALS: BMI 23.0
--- NOTE | 2018-03-17 14:49 | HP ---
CIWA Score - CIWA Score Nausea/Vomitin Muscle Tremors: 3 Anxiety: 3 Agitation: 3 Paroxysmal Sweats: 1-Minimal Palms Moist Orientation: 0-Oriented Tacttile Disturbances: 1-Very Mild Itch/Numbness Auditory Disturbances: 1-Very Mild Visual Disturbances: 0-None Headache: 2-Mild CIWA-Ar Total Score: 17 Admission ROS BHS - HPI Chief Complaint: i need help to stop drinking alcohol Allergies/Adverse Reactions: Allergies Allergy/AdvReac Type Severity Reaction Status Date / Time No Known Allergies Allergy Verified 03/17/18 14:37 History of Present Illness: this 62 years old male with alcohol dependence and xanax dependence,seeking detox,withdrawal symptom,last detox [facility] 01/18/18 to 01/21/18 not completed hypertension,arthritis,hepatitis c, positive ppd anxiety,depression,insomnia longest period of sobriety 3 and a half years mmtp 60 mgs/day,last medicated today Exam Limitations: No Limitations - Ebola screening Have you traveled outside of the country in the last 21 days: No Have you had contact with anyone from an Ebola affected area: No Have you been sick,other than usual withdrawal symptoms: No Do you have a fever: No - Review of Systems Constitutional: Chills, Loss of Appetite, Malaise, Night Sweats, Changes in sleep, Weakness, Unintentional Wgt. Loss EENT: reports: Nose Congestion Respiratory: reports: No Symptoms reported Cardiac: reports: No Symptoms Reported GI: reports: Constipated, Nausea, Poor Appetite : reports: No Symptoms Reported Musculoskeletal: reports: Back Pain, Joint Pain, Muscle Pain Integumentary: reports: Dryness Neuro: reports: Tremors Endocrine: reports: No Symptoms Reported Hematology: reports: No Symptoms Reported Psychiatric: reports: No Sypmtoms Reported, Judgement Intact, Mood/Affect Appropiate, Orientated x3, Anxious, Depressed Patient History - Patient Medical History Hx Anemia: No Hx Asthma: No Hx Chronic Obstructive Pulmonary Disease (COPD): No Hx Cancer: No Hx Cardiac Disorders: No Hx Congestive Heart Failure: No Hx Hypertension: Yes (Non-compliant with meds.) Hx Hypercholesterolemia: No Hx Pacemaker: No HX Cerebrovascular Accident: No Hx Seizures: No Hx Dementia: No Hx Diabetes: No Hx Gastrointestinal Disorders: Yes (Hx of GERD) Hx Liver Disease: Yes (liver mass resectd at [facility] 2017, has been losing wt since) Hx Genitourinary Disorders: No Hx Sexually Transmitted Disorders: No Hx Renal Disease (ESRD): No Hx Thyroid Disease: No Hx Human Immunodeficiency Virus (HIV): No (NEGATIVE HX) Hx Hepatitis C: Yes (NOT TREATED) Hx Depression: Yes (INSOMNIA) Hx Suicide Attempt: No Hx Bipolar Disorder: No Hx Schizophrenia: No Other Medical History: NO SUICIDAL,NO HMICIDAL - Patient Surgical History Past Surgical History: Yes Hx Neurologic Surgery: No Hx Cataract Extraction: No Hx Cardiac Surgery: No Hx Lung Surgery: No Hx Breast Surgery: No Hx Breast Biopsy: No Hx Abdominal Surgery: Yes (Liver mass resected In [facility] 2017) Hx Appendectomy: No Hx Cholecystectomy: No Hx Genitourinary Surgery: No Hx Section: No Hx Orthopedic Surgery: No Hx Hysterectomy: No Anesthesia Reaction: No - PPD History Previous Implant?: Yes Date: 09/02/17 Results: POSITIVE PPD to be Administered?: No - Smoking Cessation Smoking history: Current every day smoker Have you smoked in the past 12 months: Yes Aproximately how many cigarettes per day: 10 Cigars Per Day: 0 Hx Chewing Tobacco Use: No Initiated information on smoking cessation: Yes 'Breaking Loose' booklet given: 03/17/18 - Substance & Tx. History Hx Alcohol Use: Yes Hx Substance Use: Yes Substance Use Type: Alcohol, Tranquilizers Hx Substance Use Treatment: Yes ([facility] 01/18/18 TO 01/21/18 NOT COMPLETED) - Substances Abused Alcohol Route: Oral Frequency: Daily Amount used: 1 CASE OF BEER Age of first use: 15 Date of Last Use: 03/17/18 Alprazolam (Xanax) Route: Oral Frequency: 1-2 times per week Amount used: 4MG Age of first use: 44 Date of Last Use: 03/15/18 Family Disease History - Family Disease History Family Disease History: CA: Father Admission Physical Exam S - Vital Signs Vital Signs: Vital Signs - 24 hr 03/17/18 12:49 Temperature 97.1 F L Pulse Rate 76 Respiratory 20 Rate Blood Pressure 167/92 - Physical General Appearance: Yes: Moderate Distress, Tremorous, Irritable, Sweating, Anxious HEENTM: Yes: Normocephalic, LORAINE, Pharynx Normal Respiratory: Yes: Lungs Clear, Normal Breath Sounds, No Respiratory Distress Neck: Yes: Within Normal Limits, Supple, Trachea in good position Breast: Yes: Within Normal Limits Cardiology: Yes: Within Normal Limits, Regular Rhythm, S1, S2 Abdominal: Yes: Within Normal Limits, Normal Bowel Sounds, Non Tender, Flat, Soft, Surgical Scar Genitourinary: Yes: Within Normal Limits Back: Yes: Normal Inspection, Muscle Spasm Musculoskeletal: Yes: Back pain, Muscle Pain Extremities: Yes: Within Normal Limits, Normal Range of Motion, Tremors Neurological: Yes: annual giving officer II-XII NML intact, Fully Oriented, Alert, Motor Strength 5/5 Integumentary: Yes: Dry Lymphatic: Yes: Within Normal Limits - Diagnostic (1) Alcohol dependence with uncomplicated withdrawal Current Visit: No Status: Chronic (2) Arthritis, shoulder region Current Visit: No Status: Acute (3) Insomnia Current Visit: No Status: Acute Qualifiers: Insomnia type: unspecified Qualified Code(s): G47.00 - Insomnia, unspecified (4) Hypertension Current Visit: No Status: Chronic Qualifiers: Hypertension type: essential hypertension Qualified Code(s): I10 - Essential (primary) hypertension Comment: FORGOT NAME OF MEDICINE BUT LAST TOOK IT LAST WEEK. SEES DR CALVERT AT [facility](NOW [facility]). (5) Methadone maintenance therapy patient Current Visit: No Status: Chronic (6) Nicotine dependence Current Visit: No Status: Chronic (7) Tinea pedis Current Visit: No Status: Chronic Qualifiers: Laterality: bilateral Qualified Code(s): B35.3 - Tinea pedis (8) Constipation Current Visit: No Status: Resolved (9) Dehydration Current Visit: Yes Status: Acute (10) Weight loss Current Visit: Yes Status: Acute (11) Positive PPD Current Visit: Yes Status: Acute (12) History of surgery of liver Current Visit: Yes Status: Acute Cleared for Admission S - Detox or Rehab [facility] Level of Care: Medically Managed Detox Regimen/Protocol: Librium [facility] Breath Alcohol Content Breath Alcohol Content: 0 Urine Drug Screen - Results Drug Screen Negative: No Urine Drug Screen Results: BZO-Benzodiazepines, MTD-Methadone
[2018-03-17] MEDS ORDERED: chlordiazePOXIDE HCL 25 MG CAPSULE PO PRN (15:04)
[2018-03-17] MEDS ORDERED: hydrOXYzine PAMOATE 25 MG CAPSULE (FP) PO PRN (15:04)
[2018-03-17] MEDS ORDERED: MAGNESIUM HYDROX 2400MG/30ML ORAL SUSPENSION 30 ML CUP PO PRN (15:04)
[2018-03-17] MEDS ORDERED: MAGNESIUM CITRATE 300 ML BOTTLE PO PRN (15:04)
[2018-03-17] MEDS ORDERED: MENTHOL/PHENOL 1 EACH UD MM PRN (15:04)
[2018-03-17] MEDS ORDERED: guaiFENesin/D-METHORPHAN HB 10 ML UNIT-DOSE CUPS PO PRN (15:04)
[2018-03-17] MEDS ORDERED: P-EPHED 60MG/TRIPROLIDI 2.5MG TABLET PO PRN (15:04)
[2018-03-17] MEDS ORDERED: IBUPROFEN 400 MG TABLET (FP) PO PRN (15:04)
[2018-03-17] MEDS ORDERED: LOPERAMIDE HCL 2 MG CAPSULE PO PRN (15:04)
[2018-03-17] MEDS ORDERED: ACETAMINOPHEN 325 MG TABLET (FP) PO PRN (15:04)
[2018-03-17] MEDS ORDERED: chlordiazePOXIDE HCL 25 MG CAPSULE PO ONE (15:30)
[2018-03-17] MEDS: chlordiazePOXIDE HCL 25 MG CAPSULE PO SCH ×2 (16:55→22:05)
[2018-03-17] MEDS: amLODIPine BESYLATE 10 MG TABLET (FP) PO SCH (16:56)
[2018-03-17] MEDS: NICOTINE 21 MG/24 HOURS TOPICAL PATCH TD SCH (16:57)
[2018-03-17] MEDS ORDERED: MELATONIN 5 MG TABLETS PO PRN (22:00)
[2018-03-17] MEDS: THIAMINE HCL 100 MG TABLET (FP) PO SCH (22:05)
[2018-03-17 23:11] LABS: URINE APPEARANCE CLEAR; URINE BILIRUBIN NEGATIVE (<2.0 mg/dL); URINE COLOR LTYELLOW; URINE GLUCOSE (UA) NEGATIVE (NEGATIVE); URINE KETONE NEGATIVE (NEGATIVE); URINE LEUK ESTERASE NEGATIVE (NEGATIVE); URINE NITRITE NEGATIVE (NEGATIVE); URINE PROTEIN NEGATIVE (NEGATIVE); URINE UROBILINOGEN NEGATIVE mg/dL (0.2-1.0)
[2018-03-18] MEDS: chlordiazePOXIDE HCL 25 MG CAPSULE PO SCH ×4 (05:03→22:40)
[2018-03-18] MEDS ORDERED: METHADONE HCL 10 MG TABLET PO SCH (07:45)
[2018-03-18] MEDS ORDERED: METHADONE HCL 10 MG TABLET ONE (08:39)
[2018-03-18] MEDS ORDERED: METHADONE HCL 40 MG DISPERSABLE TABLET ONE (08:39)
[2018-03-18] MEDS: METHADONE 40 MG, METHADONE 20 MG PO SCH (08:46)
[2018-03-18 09:55] LABS: HEMATOCRIT 38.6 % (35.4-49); HEMOGLOBIN 13.5 GM/dL (11.7-16.9); MCH 32.3 pg (25.7-33.7); MCHC 34.8 g/dl (32.0-35.9); MEAN CELL VOLUME 92.8 fl (80-96); MEAN PLT VOLUME 8.3 fl (7.5-11.1); PLATELET COUNT 296 K/MM3 (134-434); RBC 4.17 M/mm3 (4.00-5.60); WHITE BLOOD COUNT 6.6 K/mm3 (4.0-10.0)
[2018-03-18 10:15] LABS: CHLORIDE 97 mmol/L (98-107); POTASSIUM 4.3 mmol/L (3.5-5.1); SODIUM 135 mmol/L (136-145)
--- NOTE | 2018-03-18 10:21 | CONSULT ---
[facility] Psychiatric Consult - Data Date of interview: 03/18/18 Admission source: [facility] Identifying data: Patient is a 62 year old single male, father of two, unemployed, receiving SSI, and currently homeless. This is one of multiple admissions for patient. Patient admitted to for alcohol and benzodiazepine dependence. Substance Abuse History: Following information confirmed with Mr. Phelps: Smoking Cessation. Smoking history: Current every day smoker. Have you smoked in the past 12 months: Yes. Aproximately how many cigarettes per day: 10. Cigars Per Day: 0. Hx Chewing Tobacco Use: No. Initiated information on smoking cessation: Yes. 'Breaking Loose' booklet given: 03/17/18. - Substance & Tx. History. Hx Alcohol Use: Yes. Hx Substance Use: Yes. Substance Use Type : Alcohol, Tranquilizers. Hx Substance Use Treatment: Yes ([facility] 01/18/18 TO NOT COMPLETED). - Substances Abused. Alcohol. Route: Oral. Frequency: Daily. Amount used: 1 CASE OF BEER. Age of first use: 15. Date of Last Use: 03/17/18. Alprazolam (Xanax). Route: Oral. Frequency: 1-2 times per week. Amount used: 4MG. Age of first use: 44. Date of Last Use: 03/15/18 Medical History: Hep C, hypertension, GERD, Liver mass resected [facility] (2017) Psychiatric History: Patient denies h/o psychiatric hospitalizations. OPD is provided at [facility] in the [place]. States he is prescribed seroquel 50mg + trazodone 50mg qhs. Pt. is currently at the methadone program at [facility] (methadone maintenance 60mg/day). Pt. denies h/o suicide attempt. Physical/Sexual Abuse/Trauma History: Denies. Mental Status Exam - Mental Status Exam Alert and Oriented to: Time, Place, Person Cognitive Function: Good Patient Appearance: Well Groomed Mood: Hopeful Affect: Mood Congruent Patient Behavior: Appropriate, Cooperative Speech Pattern: Appropriate Voice Loudness: Normal Thought Process: Goal Oriented Thought Disorder: Not Present Hallucinations: Denies Suicidal Ideation: Denies Homicidal Ideation: Denies Insight/Judgement: Poor Sleep: Poorly Appetite: Weight loss (liver mass resected ) Muscle strength/Tone: Normal Gait/Station: Normal Psychiatric Findings - Problem List ([place] 1, 2,3) (1) Insomnia Current Visit: Yes Status: Acute Qualifiers: Insomnia type: unspecified Qualified Code(s): G47.00 - Insomnia, unspecified (2) Alcohol dependence with uncomplicated withdrawal Current Visit: Yes Status: Acute (3) Methadone maintenance therapy patient Current Visit: Yes Status: Chronic (4) Nicotine dependence Current Visit: Yes Status: Chronic (5) Substance induced mood disorder Current Visit: Yes Status: Acute - Initial Treatment Plan Initial Treatment Plan: Psychoeducation provided. Detoxification in progress. Seroquel 50mg + trazodone 50mg ordered. Benefits and side effects discussed.
[2018-03-18] MEDS: PRENATAL VITAMINS W/ FOLIC ACID TABLET (FP) PO SCH (10:24)
[2018-03-18] MEDS: amLODIPine BESYLATE 10 MG TABLET (FP) PO SCH (10:24)
[2018-03-18] MEDS: NICOTINE 21 MG/24 HOURS TOPICAL PATCH TD SCH (10:25)
[2018-03-18 10:45] LABS: ALBUMIN 3.7 g/dl (3.4-5.0); ALK PHOS 118 U/L (45-117); ANION GAP 6 (8-16); BILIRUBIN,TOTAL 0.6 mg/dL (0.2-1.0); BLOOD UREA NITROGEN 12 mg/dL (7-18); CALCIUM 8.9 mg/dL (8.5-10.1); CO2 32 mmol/L (21-32); GLUCOSE,RANDOM 102 mg/dL (74-106); SGOT/AST 50 U/L (15-37); SGPT/ALT 28 U/L (12-78)
--- NOTE | 2018-03-18 11:46 | EKG ---
Test Reason : Blood Pressure : / mmHG Vent. Rate : 062 BPM Atrial Rate : 062 BPM P-R Int : 148 ms QRS Dur : 080 ms QT Int : 420 ms P-R-T Axes : 051 051 034 degrees QTc Int : 426 ms NORMAL SINUS RHYTHM NORMAL ECG WHEN COMPARED WITH ECG OF 18-JAN-2018 14:11, NO SIGNIFICANT CHANGE WAS FOUND Confirmed by CONSUELO SEGAL MD ([id number]) on 03/18/2018 11:46:02 AM Referred By: Confirmed By:CONSUELO SEGAL MD
--- NOTE | 2018-03-18 12:25 | PN ---
S CIWA - CIWA Score Nausea/Vomitin-No Nausea/No Vomiting Muscle Tremors: 4-Moderate,w/Arms Extend Anxiety: 4-Mod. Anxious/Guarded Agitation: 2 Paroxysmal Sweats: 3 Orientation: 0-Oriented Tacttile Disturbances: 0-None Auditory Disturbances: 2-Mild Harshness/Frighten Visual Disturbances: 0-None Headache: 3-Moderate CIWA-Ar Total Score: 18 BHS Progress Note (SOAP) Subjective: Stomach Cramping, Constipation, H/A, Tremors, Sweating, Body Aches, Interrupted Sleep. Objective: PATIENT A & O X 3. NO ACUTE DISTRESS. 03/18/18 12:22 Vital Signs Temperature 97.5 F L 03/18/18 09:06 Pulse Rate 84 03/18/18 09:06 Respiratory Rate 18 03/18/18 09:06 Blood Pressure 115/65 03/18/18 09:06 O2 Sat by Pulse Oximetry (%) Laboratory Tests 03/17/18 03/18/18 03/18/18 Unknown 06:00 06:00 WBC 6.6 RBC 4.17 Hgb 13.5 D Hct 38.6 MCV 92.8 MCH 32.3 MCHC 34.8 RDW 16.0 H Plt Count 296 D MPV 8.3 Sodium 135 L Potassium 4.3 Chloride 97 L Carbon Dioxide 32 D Anion Gap 6 L BUN 12 Creatinine 1.0 D Creat Clearance w eGFR > 60 Random Glucose 102 Calcium 8.9 Total Bilirubin 0.6 D AST 50 H ALT 28 Alkaline Phosphatase 118 H D Total Protein 9.0 H Albumin 3.7 Urine Color Ltyellow Urine Appearance Clear Urine pH 5.0 Ur Specific [place] 1.006 Urine Protein Negative Urine Glucose (UA) Negative Urine Ketones Negative Urine Blood Negative Urine Nitrite Negative Urine Bilirubin Negative Urine Urobilinogen Negative Ur Leukocyte Esterase Negative LABS NOTED. RPR RESULT PENDING. 03/18/18 12:24 Assessment: 03/18/18 12:22 WITHDRAWAL SYMPTOMS. Plan: CONTINUE DETOX. INCREASE DAILY PO FLUID INTAKE. PRN MOM FOR CONSTIPATION.
[2018-03-18] MEDS: NICOTINE POLACRILEX 2 MG GUM BC PRN (17:43)
[2018-03-18] MEDS: QUEtiapine FUMARATE 50 MG TABLET PO SCH (22:40)
[2018-03-18] MEDS: traZODone HCL 50 MG TABLET (FP) PO SCH (22:40)
[2018-03-18] MEDS: THIAMINE HCL 100 MG TABLET (FP) PO SCH (22:40)
[2018-03-19] MEDS ORDERED: METHADONE HCL 10 MG TABLET ONE (03:58)
[2018-03-19] MEDS ORDERED: METHADONE HCL 40 MG DISPERSABLE TABLET ONE (03:59)
[2018-03-19] MEDS: chlordiazePOXIDE HCL 25 MG CAPSULE PO SCH ×2 (06:06→10:13)
[2018-03-19] MEDS: METHADONE 40 MG, METHADONE 20 MG PO SCH (06:06)
[2018-03-19] MEDS: PRENATAL VITAMINS W/ FOLIC ACID TABLET (FP) PO SCH (10:12)
[2018-03-19] MEDS: amLODIPine BESYLATE 10 MG TABLET (FP) PO SCH (10:12)
[2018-03-19] MEDS: NICOTINE POLACRILEX 2 MG GUM BC PRN (10:12)
[2018-03-19] MEDS: NICOTINE 21 MG/24 HOURS TOPICAL PATCH TD SCH (10:13)
--- NOTE | 2018-03-19 12:08 | PN ---
S CIWA - CIWA Score Nausea/Vomitin-No Nausea/No Vomiting Muscle Tremors: 3 Anxiety: 3 Agitation: 2 Paroxysmal Sweats: No Perspiration Orientation: 0-Oriented Tacttile Disturbances: 2-Mild Itch/Numbness/Burn Auditory Disturbances: 0-None Visual Disturbances: 2-Mild Sensitivity Headache: 3-Moderate CIWA-Ar Total Score: 15 BHS Progress Note (SOAP) Subjective: Tremors, Stomach Cramping, Constipation, H/A, Body Aches. Objective: PATIENT A & O X 3, OBSERVED AMBULATING ON UNIT. NO ACUTE DISTRESS. 03/19/18 12:07 Vital Signs Temperature 97.4 F L 03/19/18 10:00 Pulse Rate 82 03/19/18 10:00 Respiratory Rate 20 03/19/18 10:00 Blood Pressure 113/69 03/19/18 10:00 O2 Sat by Pulse Oximetry (%) Laboratory Tests 03/17/18 03/18/18 03/18/18 Unknown 06:00 06:00 WBC 6.6 RBC 4.17 Hgb 13.5 D Hct 38.6 MCV 92.8 MCH 32.3 MCHC 34.8 RDW 16.0 H Plt Count 296 D MPV 8.3 Sodium 135 L Potassium 4.3 Chloride 97 L Carbon Dioxide 32 D Anion Gap 6 L BUN 12 Creatinine 1.0 D Creat Clearance w eGFR > 60 Random Glucose 102 Calcium 8.9 Total Bilirubin 0.6 D AST 50 H ALT 28 Alkaline Phosphatase 118 H D Total Protein 9.0 H Albumin 3.7 Urine Color Ltyellow Urine Appearance Clear Urine pH 5.0 Ur Specific [place] 1.006 Urine Protein Negative Urine Glucose (UA) Negative Urine Ketones Negative Urine Blood Negative Urine Nitrite Negative Urine Bilirubin Negative Urine Urobilinogen Negative Ur Leukocyte Esterase Negative RPR Titer 03/18/18 06:00 WBC RBC Hgb Hct MCV MCH MCHC RDW Plt Count MPV Sodium Potassium Chloride Carbon Dioxide Anion Gap BUN Creatinine Creat Clearance w eGFR Random Glucose Calcium Total Bilirubin AST ALT Alkaline Phosphatase Total Protein Albumin Urine Color Urine Appearance Urine pH Ur Specific [place] Urine Protein Urine Glucose (UA) Urine Ketones Urine Blood Urine Nitrite Urine Bilirubin Urine Urobilinogen Ur Leukocyte Esterase RPR Titer Nonreactive LABS NOTED. Assessment: 03/19/18 12:07 WITHDRAWAL SYMPTOMS. Plan: CONTINUE DETOX. INCREASE DAILY PO FLUID INTAKE. PRN MOM FOR CONSTIPATION.
[2018-03-19] MEDS: TOLNAFTATE 1% CREAM 15 GM TUBE TP SCH ×2 (14:12→22:13)
[2018-03-19] MEDS: chlordiazePOXIDE 5 MG CAPSULE PO SCH ×2 (16:58→22:12)
[2018-03-19] MEDS: MAG HYDROX/AL HYDROX/SIMETH 30 ML UNIT-DOSE CUP PO PRN (19:52)
[2018-03-19] MEDS: THIAMINE HCL 100 MG TABLET (FP) PO SCH (22:13)
[2018-03-19] MEDS: QUEtiapine FUMARATE 50 MG TABLET PO SCH (22:13)
[2018-03-19] MEDS: traZODone HCL 50 MG TABLET (FP) PO SCH (22:13)
[2018-03-20] MEDS ORDERED: METHADONE HCL 40 MG DISPERSABLE TABLET ONE (04:55)
[2018-03-20] MEDS ORDERED: METHADONE HCL 10 MG TABLET ONE (04:55)
[2018-03-20] MEDS: chlordiazePOXIDE 5 MG CAPSULE PO SCH ×2 (05:10→10:49)
[2018-03-20] MEDS: METHADONE 40 MG, METHADONE 20 MG PO SCH (05:10)
[2018-03-20] MEDS: NICOTINE 21 MG/24 HOURS TOPICAL PATCH TD SCH (10:49)
[2018-03-20] MEDS: TOLNAFTATE 1% CREAM 15 GM TUBE TP SCH ×2 (10:49→22:15)
[2018-03-20] MEDS: amLODIPine BESYLATE 10 MG TABLET (FP) PO SCH (10:49)
[2018-03-20] MEDS: PRENATAL VITAMINS W/ FOLIC ACID TABLET (FP) PO SCH (10:49)
--- NOTE | 2018-03-20 15:51 | PN ---
BHS Progress Note (SOAP) Subjective: Sweating, Anxious. Objective: PATIENT A & O X 3, OBSERVED AMBULATING ON UNIT. NO ACUTE DISTRESS. 03/20/18 15:49 Vital Signs Temperature 98.4 F 03/20/18 10:34 Pulse Rate 81 03/20/18 10:34 Respiratory Rate 16 03/20/18 10:34 Blood Pressure 100/70 03/20/18 10:34 O2 Sat by Pulse Oximetry (%) Laboratory Tests 03/17/18 03/18/18 03/18/18 Unknown 06:00 06:00 WBC 6.6 RBC 4.17 Hgb 13.5 D Hct 38.6 MCV 92.8 MCH 32.3 MCHC 34.8 RDW 16.0 H Plt Count 296 D MPV 8.3 Sodium 135 L Potassium 4.3 Chloride 97 L Carbon Dioxide 32 D Anion Gap 6 L BUN 12 Creatinine 1.0 D Creat Clearance w eGFR > 60 Random Glucose 102 Calcium 8.9 Total Bilirubin 0.6 D AST 50 H ALT 28 Alkaline Phosphatase 118 H D Total Protein 9.0 H Albumin 3.7 Urine Color Ltyellow Urine Appearance Clear Urine pH 5.0 Ur Specific [place] 1.006 Urine Protein Negative Urine Glucose (UA) Negative Urine Ketones Negative Urine Blood Negative Urine Nitrite Negative Urine Bilirubin Negative Urine Urobilinogen Negative Ur Leukocyte Esterase Negative RPR Titer 03/18/18 06:00 WBC RBC Hgb Hct MCV MCH MCHC RDW Plt Count MPV Sodium Potassium Chloride Carbon Dioxide Anion Gap BUN Creatinine Creat Clearance w eGFR Random Glucose Calcium Total Bilirubin AST ALT Alkaline Phosphatase Total Protein Albumin Urine Color Urine Appearance Urine pH Ur Specific [place] Urine Protein Urine Glucose (UA) Urine Ketones Urine Blood Urine Nitrite Urine Bilirubin Urine Urobilinogen Ur Leukocyte Esterase RPR Titer Nonreactive LABS NOTED. Assessment: 03/20/18 15:50 WITHDRAWAL SYMPTOMS. Plan: CONTINUE DETOX. PATIENT SCHEDULED FOR D/C TOMORROW.
[2018-03-20] MEDS: chlordiazePOXIDE HCL 10 MG CAPSULE PO SCH ×2 (17:23→22:13)
[2018-03-20] MEDS: THIAMINE HCL 100 MG TABLET (FP) PO SCH (22:12)
[2018-03-20] MEDS: traZODone HCL 50 MG TABLET (FP) PO SCH (22:13)
[2018-03-20] MEDS: QUEtiapine FUMARATE 50 MG TABLET PO SCH (22:13)
[2018-03-21] MEDS: chlordiazePOXIDE HCL 10 MG CAPSULE PO SCH ×2 (05:19→10:47)
[2018-03-21] MEDS ORDERED: METHADONE HCL 40 MG DISPERSABLE TABLET ONE (05:21)
[2018-03-21] MEDS: METHADONE 40 MG, METHADONE 20 MG PO SCH (05:21)
[2018-03-21] MEDS ORDERED: METHADONE HCL 10 MG TABLET ONE (05:21)
[2018-03-21 06:12] VITALS: BP 107/63; PULSE 69; TEMP 96.8
[2018-03-21] MEDS: MAG HYDROX/AL HYDROX/SIMETH 30 ML UNIT-DOSE CUP PO PRN (09:34)
[2018-03-21] MEDS: amLODIPine BESYLATE 10 MG TABLET (FP) PO SCH (09:34)
[2018-03-21] MEDS: NICOTINE 21 MG/24 HOURS TOPICAL PATCH TD SCH (10:47)
[2018-03-21] MEDS: PRENATAL VITAMINS W/ FOLIC ACID TABLET (FP) PO SCH (10:48)
[2018-03-21] MEDS: TOLNAFTATE 1% CREAM 15 GM TUBE TP SCH (10:48)
--- NOTE | 2018-03-21 11:38 | PN ---
BHS Progress Note (SOAP) Subjective: DETOX COMPLETED. ALERT O X 3. NAD. Objective: 03/21/18 11:33 Vital Signs Temperature 96.8 F L 03/21/18 06:11 Pulse Rate 69 03/21/18 06:11 Respiratory Rate 16 03/21/18 06:11 Blood Pressure 107/63 03/21/18 06:11 O2 Sat by Pulse Oximetry (%) Laboratory Tests 03/17/18 03/18/18 03/18/18 Unknown 06:00 06:00 WBC 6.6 RBC 4.17 Hgb 13.5 D Hct 38.6 MCV 92.8 MCH 32.3 MCHC 34.8 RDW 16.0 H Plt Count 296 D MPV 8.3 Sodium 135 L Potassium 4.3 Chloride 97 L Carbon Dioxide 32 D Anion Gap 6 L BUN 12 Creatinine 1.0 D Creat Clearance w eGFR > 60 Random Glucose 102 Calcium 8.9 Total Bilirubin 0.6 D AST 50 H ALT 28 Alkaline Phosphatase 118 H D Total Protein 9.0 H Albumin 3.7 Urine Color Ltyellow Urine Appearance Clear Urine pH 5.0 Ur Specific [place] 1.006 Urine Protein Negative Urine Glucose (UA) Negative Urine Ketones Negative Urine Blood Negative Urine Nitrite Negative Urine Bilirubin Negative Urine Urobilinogen Negative Ur Leukocyte Esterase Negative RPR Titer 03/18/18 06:00 WBC RBC Hgb Hct MCV MCH MCHC RDW Plt Count MPV Sodium Potassium Chloride Carbon Dioxide Anion Gap BUN Creatinine Creat Clearance w eGFR Random Glucose Calcium Total Bilirubin AST ALT Alkaline Phosphatase Total Protein Albumin Urine Color Urine Appearance Urine pH Ur Specific [place] Urine Protein Urine Glucose (UA) Urine Ketones Urine Blood Urine Nitrite Urine Bilirubin Urine Urobilinogen Ur Leukocyte Esterase RPR Titer Nonreactive Assessment: 03/21/18 11:33 MEDICALLY STABLE Plan: D/C PT TODAY SCHEDULED. PT DECLINED RX STATING HE WANTS TO GET IT FROM HIS PMD TOMORROW.
--- NOTE | 2018-03-21 11:40 | DS ---
[facility] Detox Discharge Summary Admission Date: 03/17/18 Discharge Date: 03/21/18 - History Present History: Alcohol Dependence, MMTP Additional Comments: DETOX COMPLETED. ALERT O X 3. NAD. PT REPORTS F/U WITH [facility] PM[facility]. Pertinent Past History: PLEASE SEE DX BELOW - Physical Exam Results Vital Signs: Vital Signs Temperature 96.8 F L 03/21/18 06:11 Pulse Rate 69 03/21/18 06:11 Respiratory Rate 16 03/21/18 06:11 Blood Pressure 107/63 03/21/18 06:11 O2 Sat by Pulse Oximetry (%) Pertinent Admission Physical Exam Findings: WITHDRAWAL SX Laboratory Tests 03/17/18 03/18/18 03/18/18 Unknown 06:00 06:00 WBC 6.6 RBC 4.17 Hgb 13.5 D Hct 38.6 MCV 92.8 MCH 32.3 MCHC 34.8 RDW 16.0 H Plt Count 296 D MPV 8.3 Sodium 135 L Potassium 4.3 Chloride 97 L Carbon Dioxide 32 D Anion Gap 6 L BUN 12 Creatinine 1.0 D Creat Clearance w eGFR > 60 Random Glucose 102 Calcium 8.9 Total Bilirubin 0.6 D AST 50 H ALT 28 Alkaline Phosphatase 118 H D Total Protein 9.0 H Albumin 3.7 Urine Color Ltyellow Urine Appearance Clear Urine pH 5.0 Ur Specific [place] 1.006 Urine Protein Negative Urine Glucose (UA) Negative Urine Ketones Negative Urine Blood Negative Urine Nitrite Negative Urine Bilirubin Negative Urine Urobilinogen Negative Ur Leukocyte Esterase Negative RPR Titer 03/18/18 06:00 WBC RBC Hgb Hct MCV MCH MCHC RDW Plt Count MPV Sodium Potassium Chloride Carbon Dioxide Anion Gap BUN Creatinine Creat Clearance w eGFR Random Glucose Calcium Total Bilirubin AST ALT Alkaline Phosphatase Total Protein Albumin Urine Color Urine Appearance Urine pH Ur Specific [place] Urine Protein Urine Glucose (UA) Urine Ketones Urine Blood Urine Nitrite Urine Bilirubin Urine Urobilinogen Ur Leukocyte Esterase RPR Titer Nonreactive - Treatment Hospital Course: Detox Protocol Followed, Detoxed Safely, Responded well, Discharged Condition Good, Rehab Referral Accepted Patient has Accepted a Rehab Referral to: [facility] - Medication Discharge Medications: Ambulatory Orders Amlodipine Besylate [Norvasc -] 10 mg PO DAILY #30 tablet 09/21/17 Trazodone HCl 50 mg PO HS 01/18/18 Quetiapine Fumarate [Seroquel -] 50 mg PO HS #30 tablet 01/20/18 - Diagnosis (1) Hepatitis C carrier Status: Chronic (2) Hypertension Status: Chronic Qualifiers: Hypertension type: essential hypertension Qualified Code(s): I10 - Essential (primary) hypertension (3) Methadone maintenance therapy patient Status: Chronic (4) Arthritis, shoulder region Status: Acute (5) Dehydration Status: Acute (6) History of surgery of liver Status: Chronic (7) Weight loss Status: Acute (8) Clubbing of nails Status: Chronic (9) Tinea pedis Status: Acute Qualifiers: Laterality: bilateral Qualified Code(s): B35.3 - Tinea pedis - AMA Did Patient Leave Against Medical Advice: No
== END 2018-03-21 09:35 | disposition home or self-care (01) | DRG 773 ==
LOC: YASAS 12:16 → Y3N 15:08
PROVIDERS: ADMIT Internal Medicine; ATTEND Internal Medicine
PROC: HZ2ZZZZ Detoxification Services for Substance Abuse Treatment (ICD-10-PCS; principal; 2018-03-17)
DX: F11.20 Opioid dependence, uncomplicated (principal); F10.230 Alcohol dependence with withdrawal, uncomplicated; F51.05 Insomnia due to other mental disorder; F19.24 Other psychoactive substance dependence with psychoactive substance-induced mood disorder; F41.9 Anxiety disorder, unspecified; F32.9 Major depressive disorder, single episode, unspecified; I10 Essential (primary) hypertension; E86.0 Dehydration; B18.2 Chronic viral hepatitis C; B35.3 Tinea pedis; R68.3 Clubbing of fingers; M13.811 Other specified arthritis, right shoulder; R63.4 Abnormal weight loss; R76.11 Nonspecific reaction to tuberculin skin test without active tuberculosis; Z68.23 Body mass index [BMI] 23.0-23.9, adult
CPT/HCPCS: 36415; 80053; 81003; 85027; 86593; 93005; 93010

== ENCOUNTER 2018-04-26 10:55 | Inpatient (IN) | payer OTHER ==
[2018-04-26 11:03] VITALS: BMI 24.6
--- NOTE | 2018-04-26 14:00 | HP ---
CIWA Score - CIWA Score Nausea/Vomitin-Mild Nausea/No Vomiting Muscle Tremors: 4-Moderate,w/Arms Extend Anxiety: 1-Mildly Anxious Agitation: 1-Slight > Activity Paroxysmal Sweats: 4-Forehead w/Sweat Beads Orientation: 0-Oriented Tacttile Disturbances: 0-None Auditory Disturbances: 0-None Visual Disturbances: 0-None Headache: 2-Mild CIWA-Ar Total Score: 13 Admission ROS S - HPI Chief Complaint: Here for alcohol withdrawal symptoms and wants detox. Allergies/Adverse Reactions: Allergies Allergy/AdvReac Type Severity Reaction Status Date / Time No Known Allergies Allergy Verified 04/26/18 11:16 History of Present Illness: Hx alcohol use since age 15. Currently drinks 4 pints vodka and 12-16 beers daily. Wants to stop drinking. Has had several prior treatment attempts. States has been only able to maintain sobriety for 2-3 weeks. On methadone maintenance at [facility] for hx opiate use disorder. Hx. HTN, GERD and nicotine use disorder. Last chest x-ray neg in August 2017. - Ebola screening Have you traveled outside of the country in the last 21 days: No Have you had contact with anyone from an Ebola affected area: No Have you been sick,other than usual withdrawal symptoms: No Do you have a fever: No - Review of Systems Constitutional: Diaphoresis, Changes in sleep (Hx. insomnia) EENT: reports: Blurred Vision (Wears glasses), Dental Problems (Missing teeth and cavities. Chews and swallows ok.) Respiratory: reports: No Symptoms reported Cardiac: reports: Other (Hx. HTN. Denies chest pain, murmurs, SOB.) GI: reports: Constipated (Intermittent constipation. BM's brown. Denies blood.) , Nausea, Indigestion (chronic acid reflux resolved with maalox.) : reports: No Symptoms Reported Musculoskeletal: reports: Back Pain (Generalized athritis with chronic achyness. Pain is a "5". Resolves with motrin.), Joint Pain (Generalized athritis with chronic achyness. Pain is a "5". Resolves with motrin.), Neck Pain (Generalized athritis with chronic achyness. Pain is a "5". Resolves with motrin.) Integumentary: reports: No Symptoms Reported Neuro: reports: Numbness (In fingers for years. Able to feel and picker small items.) Endocrine: reports: No Symptoms Reported Hematology: reports: No Symptoms Reported Psychiatric: reports: Orientated x3, Agitated, Anxious, Depressed, other ( chronic insomnia.) Patient History - Patient Medical History Hx Anemia: No Hx Asthma: No Hx Chronic Obstructive Pulmonary Disease (COPD): No Hx Cancer: No Hx Cardiac Disorders: No Hx Congestive Heart Failure: No Hx Hypertension: Yes Hx Hypercholesterolemia: No Hx Pacemaker: No HX Cerebrovascular Accident: No Hx Seizures: No Hx Dementia: No Hx Diabetes: No Hx Gastrointestinal Disorders: Yes (acid reflux) Hx Liver Disease: Yes (liver mass resectd at [facility] 2017, has been losing wt since) Hx Genitourinary Disorders: No Hx Sexually Transmitted Disorders: No Hx Renal Disease (ESRD): No Hx Thyroid Disease: No Hx Human Immunodeficiency Virus (HIV): No (NEGATIVE HX) Hx Hepatitis C: Yes (NOT TREATED) Hx Depression: Yes (Denies suicide or violent ideation. ) Hx Suicide Attempt: No Hx Bipolar Disorder: No Hx Schizophrenia: No - Patient Surgical History Past Surgical History: Yes Hx Neurologic Surgery: No Hx Cataract Extraction: No Hx Cardiac Surgery: No Hx Lung Surgery: No Hx Breast Surgery: No Hx Breast Biopsy: No Hx Abdominal Surgery: Yes (Liver mass resected In [facility] 2016) Hx Appendectomy: No Hx Cholecystectomy: No Hx Genitourinary Surgery: No Hx Section: No Hx Orthopedic Surgery: No Hx Hysterectomy: No Anesthesia Reaction: No - PPD History Previous Implant?: Yes Documented Results: Negative w/proof Implanted On Prior [facility] Admission?: Yes Date: 09/02/17 (Chest x-ray negative) Results: 7 mm PPD to be Administered?: No - Smoking Cessation Smoking history: Current every day smoker Have you smoked in the past 12 months: Yes Aproximately how many cigarettes per day: 10 Cigars Per Day: 0 Hx Chewing Tobacco Use: No Initiated information on smoking cessation: Yes 'Breaking Loose' booklet given: 04/26/18 - Substance & Tx. History Hx Alcohol Use: Yes Hx Substance Use: Yes Substance Use Type: Alcohol, Opiates Hx Substance Use Treatment: Yes (On methadone maintenance) - Substances Abused Alcohol-vodka/beer Route: Oral Frequency: Daily Amount used: 4 pts. vodka and 12- 16 bottle beer daily. Age of first use: 15 Date of Last Use: 04/26/18 (10 am) Family Disease History - Family Disease History Family Disease History: [place]: Father Admission Physical Exam [facility] - Vital Signs Vital Signs: Vital Signs - 24 hr 04/26/18 11:01 Temperature 98.9 F Pulse Rate 70 Respiratory 16 Rate Blood Pressure 114/61 - Physical General Appearance: Yes: Tremorous, Sweating, Anxious HEENTM: Yes: EOMI, Hearing grossly Normal, Normocephalic, Normal Voice, LORAINE Respiratory: Yes: Lungs Clear, Normal Breath Sounds, No Respiratory Distress Neck: Yes: No masses,lesions,Nodules, Supple Breast: Yes: Breast Exam Deferred Cardiology: Yes: Regular Rhythm, Regular Rate, S1, S2 Abdominal: Yes: Normal Bowel Sounds, Non Tender, Flat, Soft Genitourinary: Yes: Within Normal Limits Back: Yes: Normal Inspection Musculoskeletal: Yes: full range of Motion, Gait Steady Extremities: Yes: Normal Capillary Refill, Normal Range of Motion, Non-Tender, Tremors, Other (bulbous rounded nails and tips of all fingers. 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 intact, Fully Oriented, Motor Strength 5/5 Integumentary: Yes: Normal Color, Dry, Warm Lymphatic: Yes: Within Normal Limits - Diagnostic (1) Alcohol dependence with uncomplicated withdrawal Current Visit: Yes Status: Acute (2) Insomnia Current Visit: Yes Status: Chronic Qualifiers: Insomnia type: unspecified Qualified Code(s): G47.00 - Insomnia, unspecified (3) Clubbing of nails Current Visit: Yes Status: Chronic (4) Depressive disorder Current Visit: Yes Status: Chronic (5) GERD (gastroesophageal reflux disease) Current Visit: Yes Status: Chronic Qualifiers: Esophagitis presence: esophagitis presence not specified Qualified Code(s) : K21.9 - Gastro-esophageal reflux disease without esophagitis (6) Hypertension Current Visit: Yes Status: Chronic Qualifiers: Hypertension type: unspecified Qualified Code(s): I10 - Essential (primary ) hypertension Comment: FORGOT NAME OF MEDICINE BUT LAST TOOK IT LAST WEEK. SEES DR CALVERT AT [facility](NOW [facility] (7) Nicotine dependence Current Visit: Yes Status: Chronic (8) Opioid dependence on agonist therapy Current Visit: Yes Status: Chronic BHS Breath Alcohol Content Breath Alcohol Content: 0.029 Urine Drug Screen - Results Drug Screen Negative: No Urine Drug Screen Results: BZO-Benzodiazepines, MTD-Methadone
[2018-04-26] MEDS ORDERED: NICOTINE POLACRILEX 2 MG GUM BUC PRN (14:28)
[2018-04-26] MEDS ORDERED: hydrOXYzine PAMOATE 50 MG CAPSULE (FP) PO PRN (14:28)
[2018-04-26] MEDS ORDERED: guaiFENesin/D-METHORPHAN HB 10 ML UNIT-DOSE CUPS PO PRN (14:28)
[2018-04-26] MEDS ORDERED: P-EPHED 60MG/TRIPROLIDI 2.5MG TABLET PO PRN (14:28)
[2018-04-26] MEDS ORDERED: MAGNESIUM CITRATE 300 ML BOTTLE PO PRN (14:28)
[2018-04-26] MEDS ORDERED: LOPERAMIDE HCL 2 MG CAPSULE PO PRN (14:28)
[2018-04-26] MEDS ORDERED: IBUPROFEN 400 MG TABLET (FP) PO PRN (14:28)
[2018-04-26] MEDS ORDERED: MAGNESIUM HYDROX 2400MG/30ML ORAL SUSPENSION 30 ML CUP PO PRN (14:28)
[2018-04-26] MEDS ORDERED: MENTHOL/PHENOL 1 EACH UD MM PRN (14:28)
[2018-04-26] MEDS ORDERED: chlordiazePOXIDE HCL 25 MG CAPSULE PO PRN (14:28)
[2018-04-26] MEDS ORDERED: ACETAMINOPHEN 325 MG TABLET (FP) PO PRN (14:28)
--- NOTE | 2018-04-26 15:55 | PN ---
[facility] Progress Note Note: Pt's EKG presented, shows sinus wilfred. HR 78, pt denies any chest pains, discomfort, dizziness. Ambulating steadily, no acute distress noted. Repeat EKG in a.m
--- NOTE | 2018-04-26 16:06 | CONSULT ---
[facility] Psychiatric Consult - Data Date of interview: 04/26/18 Admission source: [facility] Identifying data: This is 62 years old male , single father of two, nomeless, unemployed , on SSI, with no psychiatric hospitalization history, reports history of Alcohol, Nicotine, opioid dependence, reports [id number] withdrawal symptoms and seeking for detox. Substance Abuse History: Smoking Cessation. Smoking history: Current every day smoker. Have you smoked in the past 12 months: Yes. Aproximately how many cigarettes per day: 10. Cigars Per Day: 0. Hx Chewing Tobacco Use: No. Initiated information on smoking cessation: Yes. 'Breaking Loose' booklet given : 04/26/18. - Substance & Tx. History. Hx Alcohol Use: Yes. Hx Substance Use : Yes. Substance Use Type: Alcohol, Opiates. Hx Substance Use Treatment: Yes ( On methadone maintenance). - Substances Abused. Alcohol-vodka/beer. Route : Oral. Frequency: Daily. Amount used: 4 pts. vodka and 12- 16 bottle beer daily. Age of first use: 15. Date of Last Use: 04/26/18 (10 am) Medical History: HTN, GERTD, HepC+, MMTP, PPD + history Psychiatric History: Patient reports history of dep[ressiojn and anxiety, reports taking prior to admisasion: Trazodone 50mg po qhs. Seroquel 50mg po qhs. Remeron 15mg po qhs Physical/Sexual Abuse/Trauma History: Denies Additional Comment: Trazodone 50mg po qhs. Seroquel 50mg po qhs. Remeron 15mg po qhs Mental Status Exam - Mental Status Exam Alert and Oriented to: Person Cognitive Function: Fair Patient Appearance: Unkempt Mood: Sad Affect: Mood Congruent Patient Behavior: Cooperative Speech Pattern: Delayed Voice Loudness: Mildly Soft/Quiet Thought Process: Circumstantial Thought Disorder: Being Controlled Hallucinations: Denies Suicidal Ideation: Denies Homicidal Ideation: Denies Insight/Judgement: Fair Sleep: Difficulty falling asleep Appetite: Weight loss Muscle strength/Tone: Mild Hypotonicity Gait/Station: Shuffling Additional Comments: Trazodone 50mg po qhs. Seroquel 50mg po qhs. Remeron 15mg po qhs Psychiatric Findings - Problem List (Jay 1, 2,3) (1) Alcohol dependence with uncomplicated withdrawal Current Visit: Yes Status: Acute (2) GERD (gastroesophageal reflux disease) Current Visit: Yes Status: Chronic Qualifiers: Esophagitis presence: esophagitis presence not specified Qualified Code(s) : K21.9 - Gastro-esophageal reflux disease without esophagitis (3) Hypertension Current Visit: Yes Status: Chronic Qualifiers: Hypertension type: unspecified Qualified Code(s): I10 - Essential (primary ) hypertension Comment: FORGOT NAME OF MEDICINE BUT LAST TOOK IT LAST WEEK. SEES DR CALVERT AT [facility](NOW [facility]). 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 Seroquel 50mg po qhs. Remeron 15mg po qhs
[2018-04-26 17:51] LABS: URINE APPEARANCE CLEAR; URINE BILIRUBIN NEGATIVE (<2.0 mg/dL); URINE COLOR LTYELLOW; URINE GLUCOSE (UA) NEGATIVE (NEGATIVE); URINE KETONE NEGATIVE (NEGATIVE); URINE LEUK ESTERASE NEGATIVE (NEGATIVE); URINE NITRITE NEGATIVE (NEGATIVE); URINE PROTEIN NEGATIVE (NEGATIVE); URINE UROBILINOGEN NEGATIVE mg/dL (0.2-1.0)
[2018-04-26] MEDS ORDERED: MELATONIN 5 MG TABLETS PO PRN (22:00)
[2018-04-26] MEDS: MIRTAZAPINE 15 MG TABLET (FP) PO SCH (22:30)
[2018-04-26] MEDS: traZODone HCL 50 MG TABLET (FP) PO SCH (22:30)
[2018-04-26] MEDS: chlordiazePOXIDE HCL 25 MG CAPSULE PO SCH ×3 (22:30→22:52)
[2018-04-26] MEDS: THIAMINE HCL 100 MG TABLET (FP) PO SCH (22:30)
[2018-04-26] MEDS: QUEtiapine FUMARATE 50 MG TABLET PO SCH (22:30)
[2018-04-27] MEDS ORDERED: METHADONE HCL 40 MG DISPERSABLE TABLET ONE (04:25)
[2018-04-27] MEDS ORDERED: METHADONE HCL 10 MG TABLET ONE (04:26)
[2018-04-27] MEDS: METHADONE 40 MG, METHADONE 30 MG PO SCH (05:47)
[2018-04-27] MEDS: chlordiazePOXIDE HCL 25 MG CAPSULE PO SCH ×4 (05:47→22:20)
[2018-04-27] MEDS ORDERED: METHADONE HCL 40 MG DISPERSABLE TABLET PO SCH (06:00)
[2018-04-27 10:04] LABS: HEMATOCRIT 35.3 % (35.4-49); HEMOGLOBIN 11.9 GM/dL (11.7-16.9); MCH 31.2 pg (25.7-33.7); MCHC 33.8 g/dl (32.0-35.9); MEAN CELL VOLUME 92.3 fl (80-96); MEAN PLT VOLUME 7.9 fl (7.5-11.1); PLATELET COUNT 163 K/MM3 (134-434); RBC 3.82 M/mm3 (4.00-5.60); RDW 15.5 % (11.9-15.9); WHITE BLOOD COUNT 3.9 K/mm3 (4.0-10.0)
[2018-04-27] MEDS: PRENATAL VITAMINS W/ FOLIC ACID TABLET (FP) PO SCH (10:15)
[2018-04-27] MEDS: amLODIPine BESYLATE 10 MG TABLET (FP) PO SCH (10:15)
[2018-04-27 10:16] LABS: CHLORIDE 104 mmol/L (98-107); POTASSIUM 4.2 mmol/L (3.5-5.1); SODIUM 138 mmol/L (136-145)
[2018-04-27] MEDS: NICOTINE 14 MG/24 HOURS TOPICAL PATCH TD SCH (10:16)
[2018-04-27 10:59] LABS: ALBUMIN 2.9 g/dl (3.4-5.0); ALK PHOS 103 U/L (45-117); ANION GAP 8 (8-16); BILIRUBIN,TOTAL 0.2 mg/dL (0.2-1.0); BLOOD UREA NITROGEN 19 mg/dL (7-18); CALCIUM 8.1 mg/dL (8.5-10.1); CO2 26 mmol/L (21-32); CREATININE 0.9 mg/dL (0.7-1.3); GLUCOSE,RANDOM 117 mg/dL (74-106); SGOT/AST 42 U/L (15-37); SGPT/ALT 28 U/L (12-78); TOT PROT 7.4 g/dl (6.4-8.2)
--- NOTE | 2018-04-27 12:05 | PN ---
S CIWA - CIWA Score Nausea/Vomitin-Mild Nausea/No Vomiting Muscle Tremors: 4-Moderate,w/Arms Extend Anxiety: 3 Agitation: 3 Paroxysmal Sweats: 1-Minimal Palms Moist Orientation: 0-Oriented Tacttile Disturbances: 0-None Auditory Disturbances: 0-None Visual Disturbances: 0-None Headache: 0-None Present CIWA-Ar Total Score: 12 BHS Progress Note (SOAP) Subjective: sweat tremor gi distress skin warm dry denies dizziness Objective: 04/27/18 12:04 Vital Signs Temperature 97.7 F 04/27/18 09:19 Pulse Rate 62 04/27/18 09:19 Respiratory Rate 18 04/27/18 09:19 Blood Pressure 123/69 04/27/18 09:19 O2 Sat by Pulse Oximetry (%) Laboratory Last Values WBC 3.9 K/mm3 (4.0-10.0) L D 04/27/18 07:00 RBC 3.82 M/mm3 (4.00-5.60) L 04/27/18 07:00 Hgb 11.9 GM/dL (11.7-16.9) D 04/27/18 07:00 Hct 35.3 % (35.4-49) L 04/27/18 07:00 MCV 92.3 fl (80-96) 04/27/18 07:00 MCH 31.2 pg (25.7-33.7) 04/27/18 07:00 MCHC 33.8 g/dl (32.0-35.9) 04/27/18 07:00 RDW 15.5 % (11.9-15.9) 04/27/18 07:00 Plt Count 163 K/MM3 (134-434) D 04/27/18 07:00 MPV 7.9 fl (7.5-11.1) 04/27/18 07:00 Sodium 138 mmol/L (136-145) 04/27/18 07:00 Potassium 4.2 mmol/L (3.5-5.1) 04/27/18 07:00 Chloride 104 mmol/L (98-107) 04/27/18 07:00 Carbon Dioxide 26 mmol/L (21-32) 04/27/18 07:00 Anion Gap 8 (8-16) 04/27/18 07:00 BUN 19 mg/dL (7-18) H D 04/27/18 07:00 Creatinine 0.9 mg/dL (0.7-1.3) 04/27/18 07:00 Creat Clearance w eGFR > 60 (>60) 04/27/18 07:00 Random Glucose 117 mg/dL (74-106) H 04/27/18 07:00 Calcium 8.1 mg/dL (8.5-10.1) L 04/27/18 07:00 Total Bilirubin 0.2 mg/dL (0.2-1.0) D 04/27/18 07:00 AST 42 U/L (15-37) H 04/27/18 07:00 ALT 28 U/L (12-78) 04/27/18 07:00 Alkaline Phosphatase 103 U/L (45-117) 04/27/18 07:00 Total Protein 7.4 g/dl (6.4-8.2) 04/27/18 07:00 Albumin 2.9 g/dl (3.4-5.0) L D 04/27/18 07:00 Urine Color Ltyellow 04/26/18 17:00 Urine Appearance Clear 04/26/18 17:00 Urine pH 6.0 (5.0-8.0) 04/26/18 17:00 Ur Specific [place] 1.011 (1.001-1.035) 04/26/18 17:00 Urine Protein Negative (NEGATIVE) 04/26/18 17:00 Urine Glucose (UA) Negative (NEGATIVE) 04/26/18 17:00 Urine Ketones Negative (NEGATIVE) 04/26/18 17:00 Urine Blood Negative (NEGATIVE) 04/26/18 17:00 Urine Nitrite Negative (NEGATIVE) 04/26/18 17:00 Urine Bilirubin Negative (<2.0 mg/dL) 04/26/18 17:00 Urine Urobilinogen Negative mg/dL (0.2-1.0) 04/26/18 17:00 Ur Leukocyte Esterase Negative (NEGATIVE) 04/26/18 17:00 lab noted Assessment: 04/27/18 12:05 withdrawal sx gi distress Plan: continue detox discontinue motrin begin zantac
[2018-04-27] MEDS: RANITIDINE HCL 150 MG TABLET (FP) PO SCH ×2 (12:25→22:20)
--- NOTE | 2018-04-27 14:19 | EKG ---
Test Reason : Blood Pressure : / mmHG Vent. Rate : 052 BPM Atrial Rate : 052 BPM P-R Int : 142 ms QRS Dur : 080 ms QT Int : 432 ms P-R-T Axes : 049 025 005 degrees QTc Int : 401 ms SINUS BRADYCARDIA SEPTAL INFARCT , AGE UNDETERMINED ABNORMAL ECG WHEN COMPARED WITH ECG OF 17-MAR-2018 17:07, SEPTAL INFARCT IS NOW PRESENT NONSPECIFIC T WAVE ABNORMALITY NOW EVIDENT IN INFERIOR LEADS Confirmed by MD Dimple, Joey ([id number]) on 04/27/2018 2:19:21 PM Referred By: Confirmed By:Joey Musa MD
[2018-04-27] MEDS: THIAMINE HCL 100 MG TABLET (FP) PO SCH (22:20)
[2018-04-27] MEDS: MIRTAZAPINE 15 MG TABLET (FP) PO SCH (22:20)
[2018-04-27] MEDS: traZODone HCL 50 MG TABLET (FP) PO SCH (22:20)
[2018-04-27] MEDS: QUEtiapine FUMARATE 50 MG TABLET PO SCH (22:20)
[2018-04-28] MEDS ORDERED: METHADONE HCL 10 MG TABLET ONE (04:51)
[2018-04-28] MEDS ORDERED: METHADONE HCL 40 MG DISPERSABLE TABLET ONE (04:51)
[2018-04-28] MEDS: METHADONE 40 MG, METHADONE 30 MG PO SCH (05:47)
[2018-04-28] MEDS: chlordiazePOXIDE HCL 25 MG CAPSULE PO SCH ×2 (05:47→10:28)
[2018-04-28] MEDS: NICOTINE 14 MG/24 HOURS TOPICAL PATCH TD SCH (10:27)
[2018-04-28] MEDS: PRENATAL VITAMINS W/ FOLIC ACID TABLET (FP) PO SCH (10:28)
[2018-04-28] MEDS: RANITIDINE HCL 150 MG TABLET (FP) PO SCH ×2 (10:28→22:18)
[2018-04-28] MEDS: amLODIPine BESYLATE 10 MG TABLET (FP) PO SCH (10:28)
--- NOTE | 2018-04-28 11:42 | PN ---
[facility] CIWA - CIWA Score Nausea/Vomitin Muscle Tremors: 3 Anxiety: 2 Agitation: 1-Slight > Activity Paroxysmal Sweats: 2 Orientation: 0-Oriented Tacttile Disturbances: 1-Very Mild Itch/Numbness Auditory Disturbances: 0-None Visual Disturbances: 0-None Headache: 0-None Present CIWA-Ar Total Score: 11 S Progress Note (SOAP) Subjective: interrupted sleep, sweats, shakes Objective: 04/28/18 11:43 Vital Signs Temperature 97.9 F 04/28/18 09:16 Pulse Rate 65 04/28/18 09:16 Respiratory Rate 16 04/28/18 09:16 Blood Pressure 139/75 04/28/18 09:16 O2 Sat by Pulse Oximetry (%) Laboratory Tests 04/26/18 04/26/18 04/27/18 07:00 17:00 07:00 WBC 3.9 L D RBC 3.82 L Hgb 11.9 D Hct 35.3 L MCV 92.3 MCH 31.2 MCHC 33.8 RDW 15.5 Plt Count 163 D MPV 7.9 Sodium Potassium Chloride Carbon Dioxide Anion Gap BUN Creatinine Creat Clearance w eGFR Random Glucose Calcium Total Bilirubin AST ALT Alkaline Phosphatase Total Protein Albumin Urine Color Ltyellow Urine Appearance Clear Urine pH 6.0 Ur Specific [place] 1.011 Urine Protein Negative Urine Glucose (UA) Negative Urine Ketones Negative Urine Blood Negative Urine Nitrite Negative Urine Bilirubin Negative Urine Urobilinogen Negative Ur Leukocyte Esterase Negative RPR Titer HIV 1&2 Antibody Screen Negative HIV P24 Antigen Negative 04/27/18 04/27/18 07:00 07:00 WBC RBC Hgb Hct MCV MCH MCHC RDW Plt Count MPV Sodium 138 Potassium 4.2 Chloride 104 Carbon Dioxide 26 Anion Gap 8 BUN 19 H D Creatinine 0.9 Creat Clearance w eGFR > 60 Random Glucose 117 H Calcium 8.1 L Total Bilirubin 0.2 D AST 42 H ALT 28 Alkaline Phosphatase 103 Total Protein 7.4 Albumin 2.9 L D Urine Color Urine Appearance Urine pH Ur Specific [place] Urine Protein Urine Glucose (UA) Urine Ketones Urine Blood Urine Nitrite Urine Bilirubin Urine Urobilinogen Ur Leukocyte Esterase RPR Titer Nonreactive HIV 1&2 Antibody Screen HIV P24 Antigen pt aox3 in nad lying in bed Assessment: 04/28/18 11:44 withdrawal sx's gerd 04/28/18 11:48 Plan: cont detox increase fluids f/up pending labs
[2018-04-28] MEDS: chlordiazePOXIDE 5 MG CAPSULE PO SCH ×2 (17:32→22:18)
[2018-04-28] MEDS: traZODone HCL 50 MG TABLET (FP) PO SCH (22:18)
[2018-04-28] MEDS: THIAMINE HCL 100 MG TABLET (FP) PO SCH (22:18)
[2018-04-28] MEDS: QUEtiapine FUMARATE 50 MG TABLET PO SCH (22:18)
[2018-04-28] MEDS: MIRTAZAPINE 15 MG TABLET (FP) PO SCH (22:18)
[2018-04-29] MEDS: MAG HYDROX/AL HYDROX/SIMETH 30 ML UNIT-DOSE CUP PO PRN ×2 (00:34→08:01)
[2018-04-29] MEDS ORDERED: METHADONE HCL 40 MG DISPERSABLE TABLET ONE (05:52)
[2018-04-29] MEDS: chlordiazePOXIDE 5 MG CAPSULE PO SCH ×2 (05:52→10:17)
[2018-04-29] MEDS ORDERED: METHADONE HCL 10 MG TABLET ONE (05:52)
[2018-04-29] MEDS: METHADONE 40 MG, METHADONE 30 MG PO SCH (05:53)
[2018-04-29] MEDS: amLODIPine BESYLATE 10 MG TABLET (FP) PO SCH (10:17)
[2018-04-29] MEDS: PRENATAL VITAMINS W/ FOLIC ACID TABLET (FP) PO SCH (10:18)
[2018-04-29] MEDS: RANITIDINE HCL 150 MG TABLET (FP) PO SCH ×2 (10:18→22:13)
[2018-04-29] MEDS: NICOTINE 14 MG/24 HOURS TOPICAL PATCH TD SCH (10:18)
--- NOTE | 2018-04-29 12:30 | PN ---
[facility] Progress Note Note: PATIENT ADMITTED 04/26/18 FOR ETOH WITHDRAWAL DETOX. PATIENT DENIES NAUSEA, DIARRHEA, VOMITING AND CHILLS. Vital Signs Temperature 98.2 F 04/29/18 10:10 Pulse Rate 76 04/29/18 10:10 Respiratory Rate 18 04/29/18 10:10 Blood Pressure 115/65 04/29/18 10:10 O2 Sat by Pulse Oximetry (%) Vital Signs Temperature 98.2 F 04/29/18 10:10 Pulse Rate 76 04/29/18 10:10 Respiratory Rate 18 04/29/18 10:10 Blood Pressure 115/65 04/29/18 10:10 O2 Sat by Pulse Oximetry (%) Laboratory Tests 04/26/18 04/26/18 04/27/18 07:00 17:00 07:00 WBC 3.9 L D RBC 3.82 L Hgb 11.9 D Hct 35.3 L MCV 92.3 MCH 31.2 MCHC 33.8 RDW 15.5 Plt Count 163 D MPV 7.9 Sodium Potassium Chloride Carbon Dioxide Anion Gap BUN Creatinine Creat Clearance w eGFR Random Glucose Calcium Total Bilirubin AST ALT Alkaline Phosphatase Total Protein Albumin Urine Color Ltyellow Urine Appearance Clear Urine pH 6.0 Ur Specific [place] 1.011 Urine Protein Negative Urine Glucose (UA) Negative Urine Ketones Negative Urine Blood Negative Urine Nitrite Negative Urine Bilirubin Negative Urine Urobilinogen Negative Ur Leukocyte Esterase Negative RPR Titer HIV 1&2 Antibody Screen Negative HIV P24 Antigen Negative 04/27/18 04/27/18 07:00 07:00 WBC RBC Hgb Hct MCV MCH MCHC RDW Plt Count MPV Sodium 138 Potassium 4.2 Chloride 104 Carbon Dioxide 26 Anion Gap 8 BUN 19 H D Creatinine 0.9 Creat Clearance w eGFR > 60 Random Glucose 117 H Calcium 8.1 L Total Bilirubin 0.2 D AST 42 H ALT 28 Alkaline Phosphatase 103 Total Protein 7.4 Albumin 2.9 L D Urine Color Urine Appearance Urine pH Ur Specific [place] Urine Protein Urine Glucose (UA) Urine Ketones Urine Blood Urine Nitrite Urine Bilirubin Urine Urobilinogen Ur Leukocyte Esterase RPR Titer Nonreactive HIV 1&2 Antibody Screen HIV P24 Antigen OBJ: GENERAL: ALERT AND ORIENTED X 3. IN NAD. SKIN: WARM AND DRY CAR: S1S2 RESP: CTA BL EXT: NO EDEMA, FULL ROM A/P: ETOH WITHDRAWAL SYNDROME CONTINUE ORAL FLUIDS AND DETOX CONTINUE TO MONITOR CLINICALLY
[2018-04-29] MEDS: chlordiazePOXIDE HCL 10 MG CAPSULE PO SCH ×2 (17:25→22:14)
[2018-04-29] MEDS: traZODone HCL 50 MG TABLET (FP) PO SCH (22:13)
[2018-04-29] MEDS: QUEtiapine FUMARATE 50 MG TABLET PO SCH (22:13)
[2018-04-29] MEDS: THIAMINE HCL 100 MG TABLET (FP) PO SCH (22:13)
[2018-04-29] MEDS: MIRTAZAPINE 15 MG TABLET (FP) PO SCH (22:13)
[2018-04-30] MEDS ORDERED: METHADONE HCL 40 MG DISPERSABLE TABLET ONE (03:36)
[2018-04-30] MEDS ORDERED: METHADONE HCL 10 MG TABLET ONE (03:37)
[2018-04-30] MEDS: METHADONE 40 MG, METHADONE 30 MG PO SCH (05:49)
[2018-04-30] MEDS: chlordiazePOXIDE HCL 10 MG CAPSULE PO SCH (05:49)
[2018-04-30 06:40] VITALS: BP 116/65; PULSE 81; TEMP 97.9
--- NOTE | 2018-04-30 08:45 | DS ---
[facility] Detox Discharge Summary Admission Date: 04/26/18 Discharge Date: 04/30/18 - History Present History: Alcohol Dependence Additional Comments: DETOX COMPLETED. ALERT O X 3. NAD. PT REPORTS HE HAS PRIMARY CARE PROVIDER DR ANGELIQUE Be AT [facility]. Pertinent Past History: PLEASE SEE DX BELOW - Physical Exam Results Vital Signs: Vital Signs Temperature 97.9 F 04/30/18 06:00 Pulse Rate 81 04/30/18 06:00 Respiratory Rate 18 04/30/18 06:00 Blood Pressure 116/65 04/30/18 06:00 O2 Sat by Pulse Oximetry (%) Pertinent Admission Physical Exam Findings: WITHDRAWAL SX Laboratory Tests 04/26/18 04/26/18 04/27/18 07:00 17:00 07:00 WBC 3.9 L D RBC 3.82 L Hgb 11.9 D Hct 35.3 L MCV 92.3 MCH 31.2 MCHC 33.8 RDW 15.5 Plt Count 163 D MPV 7.9 Sodium Potassium Chloride Carbon Dioxide Anion Gap BUN Creatinine Creat Clearance w eGFR Random Glucose Calcium Total Bilirubin AST ALT Alkaline Phosphatase Total Protein Albumin Urine Color Ltyellow Urine Appearance Clear Urine pH 6.0 Ur Specific [place] 1.011 Urine Protein Negative Urine Glucose (UA) Negative Urine Ketones Negative Urine Blood Negative Urine Nitrite Negative Urine Bilirubin Negative Urine Urobilinogen Negative Ur Leukocyte Esterase Negative RPR Titer HIV 1&2 Antibody Screen Negative HIV P24 Antigen Negative 04/27/18 04/27/18 07:00 07:00 WBC RBC Hgb Hct MCV MCH MCHC RDW Plt Count MPV Sodium 138 Potassium 4.2 Chloride 104 Carbon Dioxide 26 Anion Gap 8 BUN 19 H D Creatinine 0.9 Creat Clearance w eGFR > 60 Random Glucose 117 H Calcium 8.1 L Total Bilirubin 0.2 D AST 42 H ALT 28 Alkaline Phosphatase 103 Total Protein 7.4 Albumin 2.9 L D Urine Color Urine Appearance Urine pH Ur Specific [place] Urine Protein Urine Glucose (UA) Urine Ketones Urine Blood Urine Nitrite Urine Bilirubin Urine Urobilinogen Ur Leukocyte Esterase RPR Titer Nonreactive HIV 1&2 Antibody Screen HIV P24 Antigen - Treatment Hospital Course: Detox Protocol Followed, Detoxed Safely, Responded well, Discharged Condition Good, Rehab Referral Accepted Patient has Accepted a Rehab Referral to: [facility] - Medication Discharge Medications: Ambulatory Orders Mirtazapine [Remeron -] 15 mg PO HS #30 tablet 04/26/18 Quetiapine Fumarate [Seroquel -] 50 mg PO HS #30 tablet 04/26/18 Trazodone HCl 50 mg PO HS #30 tablet 04/26/18 Methadone [Dolophine -] 70 mg PO DAILY 04/27/18 Amlodipine Besylate [Norvasc -] 10 mg PO DAILY #30 tablet 04/30/18 - Diagnosis (1) Alcohol dependence with uncomplicated withdrawal Status: Acute (2) Weight loss Status: Acute (3) GERD (gastroesophageal reflux disease) Status: Chronic Qualifiers: Esophagitis presence: esophagitis presence not specified Qualified Code(s) : K21.9 - Gastro-esophageal reflux disease without esophagitis (4) Hepatitis C carrier Status: Chronic (5) History of surgery of liver Status: Chronic (6) Hypertension Status: Chronic Qualifiers: Hypertension type: unspecified Qualified Code(s): I10 - Essential (primary ) hypertension (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
[2018-04-30] MEDS: PRENATAL VITAMINS W/ FOLIC ACID TABLET (FP) PO SCH (09:44)
[2018-04-30] MEDS: amLODIPine BESYLATE 10 MG TABLET (FP) PO SCH (09:44)
[2018-04-30] MEDS: RANITIDINE HCL 150 MG TABLET (FP) PO SCH (09:45)
[2018-04-30] MEDS: NICOTINE 14 MG/24 HOURS TOPICAL PATCH TD SCH (09:48)
== END 2018-04-30 10:20 | disposition other institution (70) | DRG 773 ==
LOC: YASAS 10:55 → Y6N 14:33
PROVIDERS: ADMIT Family Medicine Addiction Medicine; ATTEND Family Medicine Addiction Medicine
PROC: HZ2ZZZZ Detoxification Services for Substance Abuse Treatment (ICD-10-PCS; principal; 2018-04-26)
DX: F11.20 Opioid dependence, uncomplicated (principal); F10.230 Alcohol dependence with withdrawal, uncomplicated; F17.213 Nicotine dependence, cigarettes, with withdrawal; F41.8 Other specified anxiety disorders; F19.24 Other psychoactive substance dependence with psychoactive substance-induced mood disorder; I10 Essential (primary) hypertension; K21.9 Gastro-esophageal reflux disease without esophagitis; B18.2 Chronic viral hepatitis C; R68.3 Clubbing of fingers; R63.5 Abnormal weight gain; Z68.24 Body mass index [BMI] 24.0-24.9, adult; Z98.890 Other specified postprocedural states; Z87.19 Personal history of other diseases of the digestive system
CPT/HCPCS: 36415; 80053; 81003; 85027; 86593; 87389; 93005; 93010

== ENCOUNTER 2018-12-29 09:04 | Inpatient (IN) | payer OTHER ==
[2018-12-29 09:20] VITALS: BMI 23.4
--- NOTE | 2018-12-29 12:22 | HP ---
CIWA Score Nausea/Vomitin Muscle Tremors: 3 Anxiety: 1-Mildly Anxious Agitation: 1-Slight > Activity Paroxysmal Sweats: 2 Orientation: 1-Uncertain about Date Tacttile Disturbances: 0-None Auditory Disturbances: 0-None Visual Disturbances: 0-None Headache: 3-Moderate CIWA-Ar Total Score: 14 - Admission Criteria OASAS Guidelines: Admission for Medically Managed Detox: Requires at least one of the followin. CIWA greater than 12 2. Seizures within the past 24 hours 3. Delirium tremens within the past 24 hours 4. Hallucinations within the past 24 hours 5. Acute intervention needed for co occurring medical disorder 6. Acute intervention needed for co occurring psychiatric disorder 7. Severe withdrawal that cannot be handled at a lower level of care (continued vomiting, continued diarrhea, abnormal vital signs) requiring intravenous medication and/or fluids 8. Admission ROS [facility] Chief Complaint: PATIENT PRESENTS WITH ETOH WITHDRAWAL SX. Allergies/Adverse Reactions: Allergies Allergy/AdvReac Type Severity Reaction Status Date / Time No Known Allergies Allergy Verified 12/29/18 10:52 History of Present Illness: PATIENT IS KNOWN TO [facility]. LAST ADMISSION TO DETOX 04/2018. PATIENT STARTED DRINKING AT AGE 15, DRINKS UP TO 2 PINTS AND 12 BEERS DAILY, LAST DRINK THIS AM. PATIENT DENIES HX OF SEIZURES. PATIENTS REPORTS BINGE DRINKING, BLACKOUTS AND EYE OPENERS TO STEADY NERVES. PATIENT ALSO IS IN MTD PROGRAM AT [facility]. MTD DOSE REPORTED AT [facility] DAILY, RN VERIFICATION PENDING, LAST DOSE THIS AM. PATIENT PMH HEP C (UNTREATED), INSOMNIA, DEPRESSION, ANXIETY ( NON -COMPLIANT WITH MEDS AND PSYCH FOLLOW UP) AND HTN. PATIENT DENIES SI/HI, + SUICIDE ATTEMPT (1975). + TOBACCO USE. Exam Limitations: No Limitations - Ebola screening Have you traveled outside of the country in the last 21 days: No Have you had contact with anyone from an Ebola affected area: No Have you been sick,other than usual withdrawal symptoms: No Do you have a fever: No - Review of Systems Constitutional: Chills, Changes in sleep, Unintentional Wgt. Loss EENT: reports: No Symptoms Reported Respiratory: reports: No Symptoms reported Cardiac: reports: No Symptoms Reported GI: reports: Diarrhea, Nausea, Poor Fluid Intake, Abdominal cramping : reports: Frequency (DEPENDS ON ETOH INTAKE) Musculoskeletal: reports: No Symptoms Reported Integumentary: reports: Erythema, Sweating Neuro: reports: Headache, Tremors Endocrine: reports: Unexplained Weight Loss Hematology: reports: No Symptoms Reported Psychiatric: reports: Orientated x3, Anxious, Depressed Patient History - Patient Medical History Hx Anemia: No Hx Asthma: No Hx Chronic Obstructive Pulmonary Disease (COPD): No Hx Cancer: No Hx Cardiac Disorders: No Hx Congestive Heart Failure: No Hx Hypertension: Yes Hx Hypercholesterolemia: No Hx Pacemaker: No HX Cerebrovascular Accident: No Hx Seizures: No Hx Dementia: No Hx Diabetes: No Hx Gastrointestinal Disorders: No Hx Liver Disease: Yes (liver mass resectd at [facility] 2016, has been losing wt since) Hx Genitourinary Disorders: No Hx Sexually Transmitted Disorders: No Hx Renal Disease (ESRD): No Hx Thyroid Disease: No Hx Human Immunodeficiency Virus (HIV): No (NEGATIVE HX) Hx Hepatitis C: Yes (NOT TREATED) Hx Depression: Yes Hx Suicide Attempt: Yes (thought of jumping off the roof in 1974) Hx Bipolar Disorder: No Hx Schizophrenia: No - Patient Surgical History Past Surgical History: Yes Hx Neurologic Surgery: No Hx Cataract Extraction: No Hx Cardiac Surgery: No Hx Lung Surgery: No Hx Breast Surgery: No Hx Breast Biopsy: No Hx Abdominal Surgery: Yes (removal of liver mass/biopsy (benign) in [facility]) Hx Appendectomy: No Hx Cholecystectomy: No Hx Genitourinary Surgery: No Hx Section: No Hx Orthopedic Surgery: No Hx Hysterectomy: No Anesthesia Reaction: No - PPD History Previous Implant?: Yes Documented Results: Positive w/proof Implanted On Prior [facility] Admission?: Yes Date: 09/02/17 Results: 7 mm PPD to be Administered?: Yes - Smoking Cessation Smoking history: Current every day smoker Have you smoked in the past 12 months: Yes Aproximately how many cigarettes per day: 5 Cigars Per Day: 0 Hx Chewing Tobacco Use: No Initiated information on smoking cessation: Yes 'Breaking Loose' booklet given: 12/29/18 - Substance & Tx. History Hx Alcohol Use: Yes Hx Substance Use: No Substance Use Type: Alcohol, Prescribed Hx Substance Use Treatment: Yes - Substances Abused Alcohol-vodka/beer Route: Oral Frequency: Daily Amount used: 2 pts./2-6 pts. Age of first use: 15 Date of Last Use: 12/29/18 Family Disease History - Family Disease History Family History: Denies Family Disease History: [place]: Father Admission Physical Exam [facility] - Vital Signs Vital Signs: Vital Signs - 24 hr 12/29/18 09:16 Temperature 96.9 F L Pulse Rate 71 Respiratory 17 Rate Blood Pressure 155/87 - Physical General Appearance: Yes: Disheveled, Thin, Tremorous, Sweating, Anxious HEENTM: Yes: EOMI, Hearing grossly Normal, Normal ENT Inspection, Normocephalic , Normal Voice, LORAINE, Pharynx Normal Respiratory: Yes: Chest Non-Tender, Lungs Clear, Normal Breath Sounds, No Respiratory Distress, No Accessory Muscle Use Neck: Yes: No masses,lesions,Nodules, Supple, Trachea in good position Breast: Yes: Breast Exam Deferred Cardiology: Yes: Regular Rhythm, Regular Rate, S1, S2 Abdominal: Yes: Normal Bowel Sounds, Non Tender, Soft Genitourinary: Yes: Frequency Back: Yes: Normal Inspection Musculoskeletal: Yes: full range of Motion, Gait Steady Extremities: Yes: Normal Inspection, Normal Range of Motion, Non-Tender, Tremors Neurological: Yes: hand funnel coater II-XII NML intact, Fully Oriented, Alert, Motor Strength 5/5, Normal Response, Depressed Affect Integumentary: Yes: Normal Color, Warm, Moist Lymphatic: Yes: Within Normal Limits - Diagnostic (1) Alcohol dependence with uncomplicated withdrawal Current Visit: Yes Status: Acute (2) Anxiety and depression Current Visit: Yes Status: Chronic (3) Insomnia secondary to depression with anxiety Current Visit: Yes Status: Chronic (4) Nicotine dependence Current Visit: Yes Status: Chronic Qualifiers: Nicotine product type: cigarettes Substance use status: in withdrawal Qualified Code(s): F17.213 - Nicotine dependence, cigarettes, with withdrawal (5) Hepatitis C carrier Current Visit: Yes Status: Chronic (6) Hypertension Current Visit: Yes Status: Chronic Qualifiers: Hypertension type: unspecified Qualified Code(s): I10 - Essential (primary ) hypertension Comment: FORGOT NAME OF MEDICINE BUT LAST TOOK IT LAST WEEK. SEES DR CALVERT AT [facility]). (7) Methadone maintenance therapy patient Current Visit: Yes Status: Chronic Cleared for Admission [facility] - Detox or Rehab [facility] Level of Care: Medically Managed Detox Regimen/Protocol: Librium [facility] Breath Alcohol Content Breath Alcohol Content: 0.50 Urine Drug Screen - Results Drug Screen Negative: No Urine Drug Screen Results: MTD-Methadone Inpatient Rehab Admission - Rehab Decision to Admit Inpatient rehab admission?: No
[2018-12-29] MEDS ORDERED: LOPERAMIDE HCL 2 MG CAPSULE PO PRN (12:34)
[2018-12-29] MEDS ORDERED: guaiFENesin/D-METHORPHAN HB 10 ML UNIT-DOSE CUPS PO PRN (12:34)
[2018-12-29] MEDS ORDERED: NICOTINE POLACRILEX 4 MG GUM BC PRN (12:34)
[2018-12-29] MEDS ORDERED: ACETAMINOPHEN 325 MG TABLET (FP) PO PRN (12:34)
[2018-12-29] MEDS ORDERED: IBUPROFEN 400 MG TABLET (FP) PO PRN (12:34)
[2018-12-29] MEDS ORDERED: P-EPHED 60MG/TRIPROLIDI 2.5MG TABLET PO PRN (12:34)
[2018-12-29] MEDS ORDERED: MAGNESIUM HYDROX 2400MG/30ML ORAL SUSPENSION 30 ML CUP PO PRN (12:34)
[2018-12-29] MEDS ORDERED: MAGNESIUM CITRATE 300 ML BOTTLE PO PRN (12:34)
[2018-12-29] MEDS ORDERED: MAG HYDROX/AL HYDROX/SIMETH 30 ML UNIT-DOSE CUP PO PRN (12:34)
[2018-12-29] MEDS ORDERED: MENTHOL/PHENOL 1 EACH UD MM PRN (12:34)
[2018-12-29] MEDS ORDERED: hydrOXYzine PAMOATE 50 MG CAPSULE (FP) PO PRN (12:34)
[2018-12-29] MEDS ORDERED: chlordiazePOXIDE HCL 25 MG CAPSULE PO PRN (12:36)
[2018-12-29] MEDS ORDERED: cloNIDine HCL 0.1 MG TABLET PO PRN (14:38)
[2018-12-29] MEDS: chlordiazePOXIDE HCL 25 MG CAPSULE PO SCH ×2 (17:24→22:20)
--- NOTE | 2018-12-29 17:25 | CONSULT ---
[facility] Psychiatric Consult - Data Date of interview: 12/29/18 Admission source: [facility] Identifying data: This is one of several admissions to [facility] for this 63 y/ o [place] male self-referred for detoxification treatment (alcohol, opioid) . Examined at [address] [place] [address]. Patient is , a father of two, homeless, unemployed and supported on SSI benefits. Substance Abuse History: Confirmed by the patient in this session. Details in current [facility] report as follows : Smoking history: Current every day smoker. Have you smoked in the past 12 months: Yes. Aproximately how many cigarettes per day: 5. Cigars Per Day: 0. Hx Chewing Tobacco Use: No. Initiated information on smoking cessation: Yes. 'Breaking Loose' booklet given: . - Substance & Tx. History. Hx Alcohol Use: Yes. Hx Substance Use: No. Substance Use Type: Alcohol, Prescribed. Hx Substance Use Treatment: Yes. - Substances Abused. Alcohol-vodka/beer. Route: Oral. Frequency: Daily. Amount used: 2 pts./2-6 pts. Age of first use: 15. Date of Last Use: 12/29/18 Medical History: History of hepatic mass (resected at [facility] in 2017), hypertension, hepatitis C, lower back pain and arthritis (both hands). Psychiatric History: Patient denies history of psychiatric hospitalizations. Endorses diagnoses of MDD and Anxiety Disorder. Mr Phelps continues to be followed at [facility] (on methadone maintenance : 90 mg/day) under the care of Dr Chavarria. Still maintained on a regimen of seroquel 50 mg po hs + citalopram 20 mg po daily. Patient endorses good adherence to his medications. Denies history of suicide attempts. Physical/Sexual Abuse/Trauma History: Patient denies. Additional Comment: Urine Drug Screen Results: MTD-Methadone. Noted. Mental Status Exam - Mental Status Exam Alert and Oriented to: Time, Place, Person Cognitive Function: Good Patient Appearance: Unkempt, Disheveled Mood: Nervous, Withdrawn, Anxious Affect: Mood Congruent, Constricted Patient Behavior: Fatigued, Cooperative Speech Pattern: Clear, Appropriate Voice Loudness: Normal Thought Process: Goal Oriented Thought Disorder: Not Present Hallucinations: Denies Suicidal Ideation: Denies Homicidal Ideation: Denies Insight/Judgement: Poor Sleep: Poorly, Difficulty falling asleep Appetite: Good Muscle strength/Tone: Normal Gait/Station: Normal Psychiatric Findings - Problem List ([place] 1, 2,3) (1) Alcohol dependence with uncomplicated withdrawal Current Visit: Yes Status: Acute (2) Opioid dependence on agonist therapy Current Visit: Yes Status: Chronic (3) Nicotine dependence Current Visit: Yes Status: Chronic Qualifiers: Nicotine product type: cigarettes Substance use status: in withdrawal Qualified Code(s): F17.213 - Nicotine dependence, cigarettes, with withdrawal (4) Substance induced mood disorder Current Visit: Yes Status: Acute (5) Depressive disorder Current Visit: No Status: Chronic Comment: By history. (6) Insomnia Current Visit: Yes Status: Chronic Qualifiers: Insomnia type: unspecified Qualified Code(s): G47.00 - Insomnia, unspecified - Initial Treatment Plan Initial Treatment Plan: Psychoeducation. Sleep hygiene. Detoxification in progress. Support. Will restart seroquel and citalopram in the morning. Observation.
[2018-12-29 20:53] LABS: URINE APPEARANCE CLEAR; URINE BILIRUBIN NEGATIVE (<2.0 mg/dL); URINE COLOR STRAW; URINE GLUCOSE (UA) NEGATIVE (NEGATIVE); URINE KETONE NEGATIVE (NEGATIVE); URINE LEUK ESTERASE NEGATIVE (NEGATIVE); URINE NITRITE NEGATIVE (NEGATIVE); URINE PROTEIN NEGATIVE (NEGATIVE); URINE UROBILINOGEN NEGATIVE mg/dL (0.2-1.0)
[2018-12-29] MEDS: THIAMINE HCL 100 MG TABLET (FP) PO SCH (22:19)
[2018-12-29] MEDS: MELATONIN 5 MG TABLETS PO PRN (22:20)
--- NOTE | 2018-12-30 02:30 | EKG ---
Test Reason : Blood Pressure : / mmHG Vent. Rate : 060 BPM Atrial Rate : 060 BPM P-R Int : 144 ms QRS Dur : 082 ms QT Int : 402 ms P-R-T Axes : 060 019 023 degrees QTc Int : 402 ms NORMAL SINUS RHYTHM NORMAL ECG WHEN COMPARED WITH ECG OF 26-APR-2018 15:28, CRITERIA FOR SEPTAL INFARCT ARE NO LONGER PRESENT Confirmed by MIGUELANGEL CHOI MD ([id number]) on 12/30/2018 2:30:12 AM Referred By: Confirmed By:MIGUELANGEL CHOI MD
[2018-12-30] MEDS: chlordiazePOXIDE HCL 25 MG CAPSULE PO SCH ×4 (05:19→22:46)
[2018-12-30] MEDS: PRENATAL VITAMINS W/ FOLIC ACID TABLET (FP) PO SCH (10:20)
[2018-12-30] MEDS: amLODIPine BESYLATE 10 MG TABLET (FP) PO SCH (10:21)
[2018-12-30] MEDS ORDERED: METHADONE HCL 10 MG TABLET PO ONE (10:24)
[2018-12-30] MEDS ORDERED: METHADONE HCL 10 MG TABLET ONE (10:42)
[2018-12-30] MEDS ORDERED: METHADONE HCL 40 MG DISPERSABLE TABLET ONE (10:42)
[2018-12-30] MEDS ORDERED: METHADONE 80 MG, METHADONE 10 MG PO ONE (10:45)
[2018-12-30 10:47] LABS: HEMATOCRIT 37.7 % (35.4-49); HEMOGLOBIN 13.3 GM/dL (11.7-16.9); MCH 33.4 pg (25.7-33.7); MCHC 35.3 g/dl (32.0-35.9); MEAN CELL VOLUME 94.4 fl (80-96); MEAN PLT VOLUME 8.7 fl (7.5-11.1); PLATELET COUNT 281 K/MM3 (134-434); RBC 3.99 M/mm3 (4.00-5.60); RDW 15.2 % (11.9-15.9); WHITE BLOOD COUNT 5.2 K/mm3 (4.0-10.0)
--- NOTE | 2018-12-30 11:01 | PN ---
S CIWA - CIWA Score Nausea/Vomitin-Mild Nausea/No Vomiting Muscle Tremors: 4-Moderate,w/Arms Extend Anxiety: 2 Agitation: 3 Paroxysmal Sweats: 1-Minimal Palms Moist Orientation: 1-Uncertain about Date Tacttile Disturbances: 0-None Auditory Disturbances: 0-None Visual Disturbances: 0-None Headache: 1-Very Mild CIWA-Ar Total Score: 13 BHS Progress Note (SOAP) Subjective: tremor sweating restlessness anxiety methadone verified 12/29/18 order methadone 90 mg po at 10 am today and 0600 am 12/31/18 Objective: 12/30/18 10:59 Vital Signs Temperature 98.5 F 12/30/18 09:27 Pulse Rate 64 12/30/18 09:27 Respiratory Rate 18 12/30/18 09:27 Blood Pressure 145/64 12/30/18 09:27 O2 Sat by Pulse Oximetry (%) Laboratory Last Values WBC 5.2 K/mm3 (4.0-10.0) 12/30/18 06:24 RBC 3.99 M/mm3 (4.00-5.60) L 12/30/18 06:24 Hgb 13.3 GM/dL (11.7-16.9) 12/30/18 06:24 Hct 37.7 % (35.4-49) 12/30/18 06:24 MCV 94.4 fl (80-96) 12/30/18 06:24 MCH 33.4 pg (25.7-33.7) 12/30/18 06:24 MCHC 35.3 g/dl (32.0-35.9) 12/30/18 06:24 RDW 15.2 % (11.9-15.9) 12/30/18 06:24 Plt Count 281 K/MM3 (134-434) D 12/30/18 06:24 MPV 8.7 fl (7.5-11.1) D 12/30/18 06:24 Urine Color Straw 12/29/18 18:50 Urine Appearance Clear 12/29/18 18:50 Urine pH 6.0 (5.0-8.0) 12/29/18 18:50 Ur Specific [place] 1.026 (1.010-1.035) 12/29/18 18:50 Urine Protein Negative (NEGATIVE) 12/29/18 18:50 Urine Glucose (UA) Negative (NEGATIVE) 12/29/18 18:50 Urine Ketones Negative (NEGATIVE) 12/29/18 18:50 Urine Blood Negative (NEGATIVE) 12/29/18 18:50 Urine Nitrite Negative (NEGATIVE) 12/29/18 18:50 Urine Bilirubin Negative (<2.0 mg/dL) 12/29/18 18:50 Urine Urobilinogen Negative mg/dL (0.2-1.0) 12/29/18 18:50 Ur Leukocyte Esterase Negative (NEGATIVE) 12/29/18 18:50 lab noted add lisinopril 10 mg bid Assessment: 12/30/18 11:00 withdrawal sx hypertension methadone maintenance treatment Plan: continue detox methadone 90 mg po daily lisinopril 10 mg bid
[2018-12-30] MEDS: LISINOPRIL 10 MG TABLET (FP) PO SCH ×2 (11:40→22:46)
[2018-12-30 11:46] LABS: ALK PHOS 114 U/L (45-117); ANION GAP 5 MMOL/L (8-16); BILIRUBIN,TOTAL 0.4 mg/dL (0.2-1); BLOOD UREA NITROGEN 18 mg/dL (7-18); CALCIUM 8.8 mg/dL (8.5-10.1); CHLORIDE 98 mmol/L (98-107); CO2 29 mmol/L (21-32); CREATININE 1.1 mg/dL (0.55-1.3); GLUCOSE,RANDOM 108 mg/dL (74-106); POTASSIUM 4.2 mmol/L (3.5-5.1); SGOT/AST 51 U/L (15-37); SGPT/ALT 26 U/L (13-61); SODIUM 132 mmol/L (136-145); TOT PROT 9.5 g/dl (6.4-8.2)
[2018-12-30] MEDS: THIAMINE HCL 100 MG TABLET (FP) PO SCH (22:46)
[2018-12-31] MEDS: QUEtiapine FUMARATE 50 MG TABLET PO SCH ×2 (00:39→22:10)
[2018-12-31] MEDS ORDERED: METHADONE HCL 10 MG TABLET ONE (04:50)
[2018-12-31] MEDS ORDERED: METHADONE HCL 40 MG DISPERSABLE TABLET ONE (04:50)
[2018-12-31] MEDS: METHADONE 80 MG, METHADONE 10 MG PO SCH (05:13)
[2018-12-31] MEDS: chlordiazePOXIDE HCL 25 MG CAPSULE PO SCH ×2 (05:13→10:16)
[2018-12-31] MEDS ORDERED: METHADONE HCL 10 MG TABLET PO SCH (06:00)
[2018-12-31] MEDS: LISINOPRIL 10 MG TABLET (FP) PO SCH ×2 (10:16→22:10)
[2018-12-31] MEDS: amLODIPine BESYLATE 10 MG TABLET (FP) PO SCH (10:16)
[2018-12-31] MEDS: PRENATAL VITAMINS W/ FOLIC ACID TABLET (FP) PO SCH (10:16)
[2018-12-31] MEDS: chlordiazePOXIDE 5 MG CAPSULE PO SCH ×2 (17:24→22:10)
--- NOTE | 2018-12-31 17:28 | PN ---
[facility] CIWA - CIWA Score Nausea/Vomitin-No Nausea/No Vomiting Muscle Tremors: None Anxiety: 1-Mildly Anxious Agitation: 0-Normal Activity Paroxysmal Sweats: 3 Orientation: 2-Disoriented Date<2 days Tacttile Disturbances: 3-Moderate Itch/Numb/Burn Auditory Disturbances: 0-None Visual Disturbances: 2-Mild Sensitivity Headache: 0-None Present CIWA-Ar Total Score: 11 S Progress Note (SOAP) Subjective: Body Aches, H/A, Sweating, Chills. Objective: PATIENT A & O X 2 (UNCERTAIN ABOUT CURRENT DAY / DATE). PATIENT OBSERVED AMBULATING ON UNIT. IN NO ACUTE DISTRESS. 12/31/18 17:26 Vital Signs Temperature 98.1 F 12/31/18 14:23 Pulse Rate 78 12/31/18 14:23 Respiratory Rate 20 12/31/18 14:23 Blood Pressure 111/68 12/31/18 14:23 O2 Sat by Pulse Oximetry (%) Laboratory Tests 12/29/18 12/30/18 12/30/18 18:50 06:24 06:24 WBC 5.2 RBC 3.99 L Hgb 13.3 Hct 37.7 MCV 94.4 MCH 33.4 MCHC 35.3 RDW 15.2 Plt Count 281 D MPV 8.7 D Sodium 132 L Potassium 4.2 Chloride 98 Carbon Dioxide 29 Anion Gap 5 L BUN 18 Creatinine 1.1 Creat Clearance w eGFR > 60 Random Glucose 108 H Calcium 8.8 Total Bilirubin 0.4 AST 51 H ALT 26 Alkaline Phosphatase 114 Total Protein 9.5 H Albumin 4.0 Urine Color Straw Urine Appearance Clear Urine pH 6.0 Ur Specific [place] 1.026 Urine Protein Negative Urine Glucose (UA) Negative Urine Ketones Negative Urine Blood Negative Urine Nitrite Negative Urine Bilirubin Negative Urine Urobilinogen Negative Ur Leukocyte Esterase Negative RPR Titer 12/30/18 06:24 WBC RBC Hgb Hct MCV MCH MCHC RDW Plt Count MPV Sodium Potassium Chloride Carbon Dioxide Anion Gap BUN Creatinine Creat Clearance w eGFR Random Glucose Calcium Total Bilirubin AST ALT Alkaline Phosphatase Total Protein Albumin Urine Color Urine Appearance Urine pH Ur Specific [place] Urine Protein Urine Glucose (UA) Urine Ketones Urine Blood Urine Nitrite Urine Bilirubin Urine Urobilinogen Ur Leukocyte Esterase RPR Titer Nonreactive LABS NOTED. Assessment: 12/31/18 17:26 WITHDRAWAL SYMPTOMS. Plan: CONTINUE DETOX.
[2018-12-31] MEDS: THIAMINE HCL 100 MG TABLET (FP) PO SCH (22:10)
[2018-12-31] MEDS: MELATONIN 5 MG TABLETS PO PRN (22:11)
[2019-01-01] MEDS ORDERED: METHADONE HCL 40 MG DISPERSABLE TABLET ONE (04:18)
[2019-01-01] MEDS ORDERED: METHADONE HCL 10 MG TABLET ONE (04:18)
[2019-01-01] MEDS: chlordiazePOXIDE 5 MG CAPSULE PO SCH ×2 (05:36→10:17)
[2019-01-01] MEDS: METHADONE 80 MG, METHADONE 10 MG PO SCH (05:36)
[2019-01-01] MEDS: amLODIPine BESYLATE 10 MG TABLET (FP) PO SCH (10:17)
[2019-01-01] MEDS: PRENATAL VITAMINS W/ FOLIC ACID TABLET (FP) PO SCH (10:17)
[2019-01-01] MEDS: LISINOPRIL 10 MG TABLET (FP) PO SCH ×2 (10:19→22:05)
--- NOTE | 2019-01-01 17:27 | PN ---
BHS Progress Note (SOAP) Subjective: sweats shakes Objective: 01/01/19 17:25 A & ox 3 in no distress Vital Signs Temperature 96.1 F L 01/01/19 17:19 Pulse Rate 77 01/01/19 17:19 Respiratory Rate 16 01/01/19 17:19 Blood Pressure 104/60 01/01/19 17:19 O2 Sat by Pulse Oximetry (%) Assessment: 01/01/19 17:26 withdrawal sx Plan: Continue detox For d/c in the morning
[2019-01-01] MEDS: chlordiazePOXIDE HCL 10 MG CAPSULE PO SCH ×2 (17:41→22:04)
[2019-01-01] MEDS: THIAMINE HCL 100 MG TABLET (FP) PO SCH (22:04)
[2019-01-01] MEDS: QUEtiapine FUMARATE 50 MG TABLET PO SCH (22:04)
[2019-01-01] MEDS: MELATONIN 5 MG TABLETS PO PRN (22:05)
[2019-01-02] MEDS ORDERED: METHADONE HCL 10 MG TABLET ONE (04:50)
[2019-01-02] MEDS ORDERED: METHADONE HCL 40 MG DISPERSABLE TABLET ONE (04:50)
[2019-01-02] MEDS: chlordiazePOXIDE HCL 10 MG CAPSULE PO SCH (05:11)
[2019-01-02] MEDS: METHADONE 80 MG, METHADONE 10 MG PO SCH (05:11)
[2019-01-02 09:18] VITALS: BP 106/70; PULSE 87; TEMP 98.2
[2019-01-02] MEDS ORDERED: CITALOPRAM HYDROBROMIDE 20 MG TABLET (FP) PO SCH (10:00)
--- NOTE | 2019-01-02 10:57 | DS ---
[facility] Detox Discharge Summary Admission Date: 12/29/18 Discharge Date: 01/02/19 - History Present History: Alcohol Dependence Additional Comments: 63 years old male admitted on 12/29/18 for alcohol withdrawal stabilization completed detox regimen aftercare [facility] Pertinent Past History: encourage bring in medication list to aftercare facility bring in lab report to methadone maintenance treatment program important of medication adherence - Physical Exam Results Vital Signs: Vital Signs Temperature 98.2 F 01/02/19 09:18 Pulse Rate 87 01/02/19 09:18 Respiratory Rate 16 01/02/19 09:18 Blood Pressure 106/70 01/02/19 09:18 O2 Sat by Pulse Oximetry (%) Pertinent Admission Physical Exam Findings: alcohol withdrawal sx Laboratory Last Values WBC 5.2 K/mm3 (4.0-10.0) 12/30/18 06:24 RBC 3.99 M/mm3 (4.00-5.60) L 12/30/18 06:24 Hgb 13.3 GM/dL (11.7-16.9) 12/30/18 06:24 Hct 37.7 % (35.4-49) 12/30/18 06:24 MCV 94.4 fl (80-96) 12/30/18 06:24 MCH 33.4 pg (25.7-33.7) 12/30/18 06:24 MCHC 35.3 g/dl (32.0-35.9) 12/30/18 06:24 RDW 15.2 % (11.9-15.9) 12/30/18 06:24 Plt Count 281 K/MM3 (134-434) D 12/30/18 06:24 MPV 8.7 fl (7.5-11.1) D 12/30/18 06:24 Sodium 132 mmol/L (136-145) L 12/30/18 06:24 Potassium 4.2 mmol/L (3.5-5.1) 12/30/18 06:24 Chloride 98 mmol/L (98-107) 12/30/18 06:24 Carbon Dioxide 29 mmol/L (21-32) 12/30/18 06:24 Anion Gap 5 MMOL/L (8-16) L 12/30/18 06:24 BUN 18 mg/dL (7-18) 12/30/18 06:24 Creatinine 1.1 mg/dL (0.55-1.3) 12/30/18 06:24 Creat Clearance w eGFR > 60 (>60) 12/30/18 06:24 Random Glucose 108 mg/dL (74-106) H 12/30/18 06:24 Calcium 8.8 mg/dL (8.5-10.1) 12/30/18 06:24 Total Bilirubin 0.4 mg/dL (0.2-1) 12/30/18 06:24 AST 51 U/L (15-37) H 12/30/18 06:24 ALT 26 U/L (13-61) 12/30/18 06:24 Alkaline Phosphatase 114 U/L (45-117) 12/30/18 06:24 Total Protein 9.5 g/dl (6.4-8.2) H 12/30/18 06:24 Albumin 4.0 g/dl (3.4-5.0) 12/30/18 06:24 Urine Color Straw 12/29/18 18:50 Urine Appearance Clear 12/29/18 18:50 Urine pH 6.0 (5.0-8.0) 12/29/18 18:50 Ur Specific [place] 1.026 (1.010-1.035) 12/29/18 18:50 Urine Protein Negative (NEGATIVE) 12/29/18 18:50 Urine Glucose (UA) Negative (NEGATIVE) 12/29/18 18:50 Urine Ketones Negative (NEGATIVE) 12/29/18 18:50 Urine Blood Negative (NEGATIVE) 12/29/18 18:50 Urine Nitrite Negative (NEGATIVE) 12/29/18 18:50 Urine Bilirubin Negative (<2.0 mg/dL) 12/29/18 18:50 Urine Urobilinogen Negative mg/dL (0.2-1.0) 12/29/18 18:50 Ur Leukocyte Esterase Negative (NEGATIVE) 12/29/18 18:50 RPR Titer Nonreactive (NONREACTIVE) 12/30/18 06:24 lab noted - Treatment Hospital Course: Detox Protocol Followed, Detoxed Safely, Responded well, Discharged Condition Good, Rehab Referral Accepted Patient has Accepted a Rehab Referral to: [facility] - Medication Discharge Medications: Ambulatory Orders Quetiapine Fumarate [Seroquel -] 50 mg PO HS #30 tablet 04/26/18 Methadone [Dolophine -] 90 mg PO DAILY 04/27/18 Amlodipine Besylate [Norvasc -] 10 mg PO DAILY #30 tablet 04/30/18 Citalopram Hydrobromide [Celexa -] 20 mg PO HS 12/29/18 Lisinopril [Prinivil] 10 mg PO BID 12/30/18 - Diagnosis (1) Hepatitis C carrier Status: Chronic (2) Methadone maintenance therapy patient Status: Chronic (3) Hypertension Status: Chronic Qualifiers: Hypertension type: unspecified Qualified Code(s): I10 - Essential (primary ) hypertension (4) Substance induced mood disorder Status: Suspected (5) GERD (gastroesophageal reflux disease) Status: Chronic Qualifiers: Esophagitis presence: esophagitis presence not specified Qualified Code(s) : K21.9 - Gastro-esophageal reflux disease without esophagitis (6) Weight loss Status: Acute (7) Positive PPD Status: Resolved (8) Nicotine dependence Status: Acute Qualifiers: Nicotine product type: cigarettes Substance use status: in withdrawal Qualified Code(s): F17.213 - Nicotine dependence, cigarettes, with withdrawal - AMA Did Patient Leave Against Medical Advice: No
== END 2019-01-02 09:50 | disposition home or self-care (01) | DRG 773 ==
LOC: YASAS 09:04 → Y3N 12:53
PROVIDERS: ADMIT Surgery; ATTEND Surgery
PROC: HZ2ZZZZ Detoxification Services for Substance Abuse Treatment (ICD-10-PCS; principal; 2018-12-29)
DX: F10.230 Alcohol dependence with withdrawal, uncomplicated (principal); F11.20 Opioid dependence, uncomplicated; F17.210 Nicotine dependence, cigarettes, uncomplicated; F19.24 Other psychoactive substance dependence with psychoactive substance-induced mood disorder; F41.8 Other specified anxiety disorders; F32.9 Major depressive disorder, single episode, unspecified; F51.05 Insomnia due to other mental disorder; G47.00 Insomnia, unspecified; K21.9 Gastro-esophageal reflux disease without esophagitis
CPT/HCPCS: 36415; 71046-TC-FY; 80053; 81003; 85027; 86593; 93005; 93010; J0735

== ENCOUNTER 2019-05-10 13:08 | Inpatient (IN) | payer OTHER ==
[2019-05-10 13:43] VITALS: BMI 23.0
--- NOTE | 2019-05-10 17:19 | HP ---
CIWA Score Nausea/Vomitin Muscle Tremors: 3 Anxiety: 2 Agitation: 2 Paroxysmal Sweats: 1-Minimal Palms Moist Orientation: 0-Oriented Tacttile Disturbances: 0-None Auditory Disturbances: 0-None Visual Disturbances: 0-None Headache: 2-Mild CIWA-Ar Total Score: 12 - Admission Criteria OASAS Guidelines: Admission for Medically Managed Detox: Requires at least one of the followin. CIWA greater than 12 2. Seizures within the past 24 hours 3. Delirium tremens within the past 24 hours 4. Hallucinations within the past 24 hours 5. Acute intervention needed for co occurring medical disorder 6. Acute intervention needed for co occurring psychiatric disorder 7. Severe withdrawal that cannot be handled at a lower level of care (continued vomiting, continued diarrhea, abnormal vital signs) requiring intravenous medication and/or fluids 8. Patient presents the following: CIWA greater than 12 Admission Criteria Met: Admission criteria met Admission ROS [facility] Chief Complaint: alcohol detox Allergies/Adverse Reactions: Allergies Allergy/AdvReac Type Severity Reaction Status Date / Time No Known Allergies Allergy Verified 05/10/19 13:33 History of Present Illness: 63 yo with HCV, HTN, with h/o liver mass, long h/o alcohol use disorder, in an MAT methadone program, was last here 12/2018, says he relapsed within a month. Pt states he is homeless, and stays in a homeless longterm in the [place]. Is waiting for an apartment. Has SSI. Has 2 daughter [place], other family in [place] and pt does not like to be there. Does not work. Alcohol: 1-2 pints/day, no seizures, no DT's methadone 90mg dosed today cigarettes- 3-4 cigs/day THC- occ DUR- no recent meds MONA- neg, Utox- Mtd Exam Limitations: No Limitations - Ebola screening Have you traveled outside of the country in the last 21 days: No Have you had contact with anyone from an Ebola affected area: No Do you have a fever: No - Review of Systems Constitutional: No Symptoms Reported EENT: reports: No Symptoms Reported Respiratory: reports: No Symptoms reported Cardiac: reports: No Symptoms Reported GI: reports: Abdominal Distended : reports: No Symptoms Reported Musculoskeletal: reports: No Symptoms Reported Integumentary: reports: No Symptoms Reported Neuro: reports: No Symptoms reported Endocrine: reports: No Symptoms Reported Hematology: reports: No Symptoms Reported Psychiatric: reports: No Sypmtoms Reported Other Systems: Reviewed and Negative Patient History - Patient Medical History Hx Anemia: No Hx Asthma: No Hx Chronic Obstructive Pulmonary Disease (COPD): No Hx Cancer: No Hx Cardiac Disorders: No Hx Congestive Heart Failure: No Hx Hypertension: Yes Hx Hypercholesterolemia: No Hx Pacemaker: No HX Cerebrovascular Accident: No Hx Seizures: No Hx Dementia: No Hx Diabetes: No Hx Gastrointestinal Disorders: No Hx Liver Disease: Yes (liver mass resectd at [facility] 2016, has been losing wt since) Hx Genitourinary Disorders: No Hx Sexually Transmitted Disorders: No Hx Renal Disease (ESRD): No Hx Thyroid Disease: No Hx Human Immunodeficiency Virus (HIV): No (NEGATIVE HX) Hx Hepatitis C: Yes (NOT TREATED) Hx Depression: Yes Hx Suicide Attempt: Yes (thought of jumping off the roof in 1974) Hx Bipolar Disorder: No Hx Schizophrenia: No - Patient Surgical History Past Surgical History: Yes Hx Neurologic Surgery: No Hx Cataract Extraction: No Hx Cardiac Surgery: No Hx Lung Surgery: No Hx Breast Surgery: No Hx Breast Biopsy: No Hx Abdominal Surgery: Yes (removal of liver mass/biopsy (benign) in [facility]) Hx Appendectomy: No Hx Cholecystectomy: No Hx Genitourinary Surgery: No Hx Section: No Hx Orthopedic Surgery: No Hx Hysterectomy: No Anesthesia Reaction: No - PPD History Date: 09/02/17 Results: 7 mm - Smoking Cessation Smoking history: Current every day smoker Have you smoked in the past 12 months: Yes Aproximately how many cigarettes per day: 4 Cigars Per Day: 0 Hx Chewing Tobacco Use: No Initiated information on smoking cessation: Yes 'Breaking Loose' booklet given: 05/10/19 - Substance & Tx. History Hx Alcohol Use: Yes Hx Substance Use: Yes Substance Use Type: Alcohol, Opiates, Prescribed Hx Substance Use Treatment: Yes - Substances abused Alcohol Substance route: Oral Frequency: Daily Amount used: 1 PINT OF VODKA Age of first use: 16 Date of last use: 05/10/19 Family Disease History - Family Disease History Family Disease History: CA: Father Admission Physical Exam BHS - Vital Signs Vital Signs: Vital Signs - 24 hr 05/10/19 13:37 Temperature 97.8 F Pulse Rate 68 Respiratory 18 Rate Blood Pressure 121/70 - Physical General Appearance: Yes: Within Normal Limits, Disheveled, Thin HEENTM: Yes: Within Normal Limits, Normocephalic, Normal Voice Respiratory: Yes: Within Normal Limits, Chest Non-Tender, Lungs Clear Neck: Yes: Within Normal Limits Cardiology: Yes: Within Normal Limits, Regular Rate Abdominal: Yes: Within Normal Limits, Normal Bowel Sounds Back: Yes: Within Normal Limits, Normal Inspection Musculoskeletal: Yes: Within Normal Limits Extremities: Yes: Within Normal Limits, Normal Capillary Refill, Normal Inspection Neurological: Yes: Within Normal Limits, driver II-XII NML intact, Alert Integumentary: Yes: Within Normal Limits Lymphatic: Yes: Within Normal Limits - Diagnostic (1) Alcohol dependence with uncomplicated withdrawal Current Visit: No Status: Acute (2) Nicotine dependence Current Visit: No Status: Acute Qualifiers: Nicotine product type: cigarettes Substance use status: in withdrawal Qualified Code(s): F17.213 - Nicotine dependence, cigarettes, with withdrawal (3) Weight loss Current Visit: No Status: Acute (4) Hepatitis C carrier Current Visit: No Status: Chronic (5) History of surgery of liver Current Visit: No Status: Chronic (6) Hypertension Current Visit: No Status: Chronic Qualifiers: Hypertension type: unspecified Qualified Code(s): I10 - Essential (primary ) hypertension Comment: FORGOT NAME OF MEDICINE BUT LAST TOOK IT LAST WEEK. SEES DR CALVERT AT [facility] (7) Methadone maintenance therapy patient Current Visit: No Status: Chronic Breathalyzer - Breathalyzer Breathalyzer: 0 Urine Drug Screen - Test Device Lot number: [id number] Expiration date: 01/06/21 - Control Is test valid?: Yes - Results Urine drug screen results: MTD-Methadone Inpatient Rehab Admission - Rehab Decision to Admit Inpatient rehab admission?: No
[2019-05-10] MEDS ORDERED: METHOCARBAMOL 500 MG TABLET PO PRN (17:26)
[2019-05-10] MEDS ORDERED: hydrOXYzine PAMOATE 25 MG CAPSULE (FP) PO PRN (17:26)
[2019-05-10] MEDS ORDERED: BISMUTH SUBSALICYLATE 524 MG/30 ML UD PO PRN (17:26)
[2019-05-10] MEDS ORDERED: MENTHOL/PHENOL 1 EACH UD MM PRN (17:26)
[2019-05-10] MEDS ORDERED: MELATONIN 5 MG TABLETS PO PRN (17:26)
[2019-05-10] MEDS ORDERED: MAGNESIUM CITRATE 300 ML BOTTLE PO PRN (17:26)
[2019-05-10] MEDS ORDERED: ONDANSETRON *ODT* 4 MG TABLET SL PRN (17:26)
[2019-05-10] MEDS ORDERED: ACETAMINOPHEN 325 MG TABLET (FP) PO PRN ×2 (17:26)
[2019-05-10] MEDS ORDERED: IBUPROFEN 400 MG TABLET (FP) PO PRN (17:26)
[2019-05-10] MEDS ORDERED: MAGNESIUM HYDROX 2400MG/30ML ORAL SUSPENSION 30 ML CUP PO PRN (17:26)
[2019-05-10] MEDS ORDERED: chlordiazePOXIDE HCL 25 MG CAPSULE PO PRN (17:30)
[2019-05-10] MEDS ORDERED: cloNIDine HCL 0.1 MG TABLET PO ONE (18:50)
[2019-05-10] MEDS: QUEtiapine FUMARATE 50 MG TABLET PO PRN (22:08)
[2019-05-10] MEDS: LISINOPRIL 10 MG TABLET (FP) PO SCH (22:08)
[2019-05-10] MEDS: chlordiazePOXIDE HCL 25 MG CAPSULE PO SCH (22:08)
[2019-05-10] MEDS: THIAMINE HCL 100 MG TABLET (FP) PO SCH (22:08)
[2019-05-11] MEDS: chlordiazePOXIDE HCL 25 MG CAPSULE PO SCH ×4 (05:08→22:20)
[2019-05-11 08:42] LABS: PH,URINE 5.5 (5.0-8.0); URINE APPEARANCE CLEAR; URINE BILIRUBIN NEGATIVE (NEGATIVE); URINE COLOR YELLOW; URINE GLUCOSE (UA) NEGATIVE (NEGATIVE); URINE KETONE NEGATIVE (NEGATIVE); URINE LEUK ESTERASE NEGATIVE (NEGATIVE); URINE NITRITE NEGATIVE (NEGATIVE); URINE PROTEIN NEGATIVE (NEGATIVE); URINE UROBILINOGEN 0.2 mg/dL (0.2-1.0)
[2019-05-11] MEDS ORDERED: METHADONE HCL 10 MG TABLET PO SCH (09:15)
[2019-05-11] MEDS ORDERED: METHADONE HCL 40 MG DISPERSABLE TABLET ONE (09:48)
[2019-05-11] MEDS ORDERED: METHADONE HCL 10 MG TABLET ONE (09:48)
[2019-05-11 10:06] LABS: HEMATOCRIT 39.3 % (35.4-49); HEMOGLOBIN 13.2 GM/dL (11.7-16.9); MCH 31.5 pg (25.7-33.7); MCHC 33.5 g/dl (32.0-35.9); MEAN CELL VOLUME 93.9 fl (80-96); MEAN PLT VOLUME 8.1 fl (7.5-11.1); PLATELET COUNT 247 K/MM3 (134-434); RBC 4.18 M/mm3 (4.00-5.60); RDW 14.7 % (11.9-15.9)
[2019-05-11] MEDS: NICOTINE 7 MG/24 HOURS TOPICAL PATCH TD SCH (10:24)
[2019-05-11] MEDS: METHADONE 80 MG, METHADONE 10 MG PO SCH (10:25)
[2019-05-11 10:26] LABS: ALBUMIN 3.1 g/dl (3.4-5.0); BILIRUBIN,TOTAL 0.9 mg/dL (0.2-1); BLOOD UREA NITROGEN 16.3 mg/dL (7-18); CALCIUM 8.7 mg/dL (8.5-10.1); CREATININE 1.1 mg/dL (0.55-1.3); POTASSIUM 4.1 mmol/L (3.5-5.1); TOT PROT 7.8 g/dl (6.4-8.2)
[2019-05-11] MEDS: LISINOPRIL 10 MG TABLET (FP) PO SCH ×2 (10:28→22:22)
[2019-05-11] MEDS: amLODIPine BESYLATE 10 MG TABLET (FP) PO SCH (10:29)
[2019-05-11] MEDS: PRENATAL VITAMINS W/ FOLIC ACID TABLET (FP) PO SCH (10:29)
--- NOTE | 2019-05-11 14:47 | PN ---
S CIWA - CIWA Score Nausea/Vomitin-No Nausea/No Vomiting Muscle Tremors: 2 Anxiety: 3 Agitation: 1-Slight > Activity Paroxysmal Sweats: 2 Orientation: 0-Oriented Tacttile Disturbances: 2-Mild Itch/Numbness/Burn Auditory Disturbances: 2-Mild Harshness/Frighten Visual Disturbances: 2-Mild Sensitivity Headache: 0-None Present CIWA-Ar Total Score: 14 S Progress Note (SOAP) Subjective: Body Aches, Sweating, Anxious, Tremors. Objective: PATIENT A & O X 3, OBSERVED AMBULATING ON UNIT UNASSISTED. IN NO ACUTE DISTRESS. 05/11/19 14:48 Vital Signs Temperature 96.1 F L 05/11/19 13:02 Pulse Rate 84 05/11/19 13:02 Respiratory Rate 18 05/11/19 13:02 Blood Pressure 132/77 05/11/19 13:02 O2 Sat by Pulse Oximetry (%) Laboratory Tests 05/11/19 05/11/19 05/11/19 00:06 07:50 07:50 WBC 4.0 RBC 4.18 Hgb 13.2 Hct 39.3 MCV 93.9 MCH 31.5 MCHC 33.5 RDW 14.7 Plt Count 247 MPV 8.1 Sodium 139 Potassium 4.1 Chloride 104 Carbon Dioxide 32 Anion Gap 3 L BUN 16.3 Creatinine 1.1 Est GFR (CKD-EPI)AfAm 82.95 Est GFR (CKD-EPI)NonAf 71.57 Random Glucose 92 Calcium 8.7 Total Bilirubin 0.9 AST 50 H ALT 25 Alkaline Phosphatase 109 Total Protein 7.8 Albumin 3.1 L Urine Color Yellow Urine Appearance Clear Urine pH 5.5 Ur Specific [place] 1.006 L Urine Protein Negative Urine Glucose (UA) Negative Urine Ketones Negative Urine Blood Negative Urine Nitrite Negative Urine Bilirubin Negative Urine Urobilinogen 0.2 Ur Leukocyte Esterase Negative RPR Titer 05/11/19 07:50 WBC RBC Hgb Hct MCV MCH MCHC RDW Plt Count MPV Sodium Potassium Chloride Carbon Dioxide Anion Gap BUN Creatinine Est GFR (CKD-EPI)AfAm Est GFR (CKD-EPI)NonAf Random Glucose Calcium Total Bilirubin AST ALT Alkaline Phosphatase Total Protein Albumin Urine Color Urine Appearance Urine pH Ur Specific [place] Urine Protein Urine Glucose (UA) Urine Ketones Urine Blood Urine Nitrite Urine Bilirubin Urine Urobilinogen Ur Leukocyte Esterase RPR Titer Nonreactive LABS NOTED. Assessment: 05/11/19 14:48 WITHDRAWAL SYMPTOMS. HYPERTENSION. 05/11/19 14:49 Plan: CONTINUE DETOX.
[2019-05-11] MEDS: THIAMINE HCL 100 MG TABLET (FP) PO SCH (22:21)
[2019-05-12] MEDS ORDERED: METHADONE HCL 40 MG DISPERSABLE TABLET ONE (05:15)
[2019-05-12] MEDS ORDERED: METHADONE HCL 10 MG TABLET ONE (05:15)
[2019-05-12] MEDS: chlordiazePOXIDE HCL 25 MG CAPSULE PO SCH ×4 (05:57→22:39)
[2019-05-12] MEDS: METHADONE 80 MG, METHADONE 10 MG PO SCH (05:57)
[2019-05-12] MEDS: amLODIPine BESYLATE 10 MG TABLET (FP) PO SCH (10:21)
[2019-05-12] MEDS: PRENATAL VITAMINS W/ FOLIC ACID TABLET (FP) PO SCH (10:21)
[2019-05-12] MEDS: LISINOPRIL 10 MG TABLET (FP) PO SCH ×2 (10:21→22:40)
[2019-05-12] MEDS: NICOTINE 7 MG/24 HOURS TOPICAL PATCH TD SCH (10:22)
--- NOTE | 2019-05-12 11:19 | PN ---
S CIWA - CIWA Score Nausea/Vomitin-Mild Nausea/No Vomiting Muscle Tremors: 3 Anxiety: 3 Agitation: 2 Paroxysmal Sweats: 1-Minimal Palms Moist Orientation: 0-Oriented Tacttile Disturbances: 1-Very Mild Itch/Numbness Auditory Disturbances: 0-None Visual Disturbances: 0-None Headache: 1-Very Mild CIWA-Ar Total Score: 12 S Progress Note (SOAP) Subjective: tremor restlessness doing ok with librium protocol Objective: 05/12/19 11:25 Vital Signs Temperature 97.1 F L 05/12/19 09:22 Pulse Rate 64 05/12/19 09:22 Respiratory Rate 16 05/12/19 09:22 Blood Pressure 132/74 05/12/19 09:22 O2 Sat by Pulse Oximetry (%) Laboratory Last Values WBC 4.0 K/mm3 (4.0-10.0) 05/11/19 07:50 RBC 4.18 M/mm3 (4.00-5.60) 05/11/19 07:50 Hgb 13.2 GM/dL (11.7-16.9) 05/11/19 07:50 Hct 39.3 % (35.4-49) 05/11/19 07:50 MCV 93.9 fl (80-96) 05/11/19 07:50 MCH 31.5 pg (25.7-33.7) 05/11/19 07:50 MCHC 33.5 g/dl (32.0-35.9) 05/11/19 07:50 RDW 14.7 % (11.9-15.9) 05/11/19 07:50 Plt Count 247 K/MM3 (134-434) 05/11/19 07:50 MPV 8.1 fl (7.5-11.1) 05/11/19 07:50 Sodium 139 mmol/L (136-145) 05/11/19 07:50 Potassium 4.1 mmol/L (3.5-5.1) 05/11/19 07:50 Chloride 104 mmol/L (98-107) 05/11/19 07:50 Carbon Dioxide 32 mmol/L (21-32) 05/11/19 07:50 Anion Gap 3 MMOL/L (8-16) L 05/11/19 07:50 BUN 16.3 mg/dL (7-18) 05/11/19 07:50 Creatinine 1.1 mg/dL (0.55-1.3) 05/11/19 07:50 Est GFR (CKD-EPI)AfAm 82.95 05/11/19 07:50 Est GFR (CKD-EPI)NonAf 71.57 05/11/19 07:50 Random Glucose 92 mg/dL (74-106) 05/11/19 07:50 Calcium 8.7 mg/dL (8.5-10.1) 05/11/19 07:50 Total Bilirubin 0.9 mg/dL (0.2-1) 05/11/19 07:50 AST 50 U/L (15-37) H 05/11/19 07:50 ALT 25 U/L (13-61) 05/11/19 07:50 Alkaline Phosphatase 109 U/L (45-117) 05/11/19 07:50 Total Protein 7.8 g/dl (6.4-8.2) 05/11/19 07:50 Albumin 3.1 g/dl (3.4-5.0) L 05/11/19 07:50 Urine Color Yellow 05/11/19 00:06 Urine Appearance Clear 05/11/19 00:06 Urine pH 5.5 (5.0-8.0) 05/11/19 00:06 Ur Specific [place] 1.006 (1.010-1.035) L 05/11/19 00:06 Urine Protein Negative (NEGATIVE) 05/11/19 00:06 Urine Glucose (UA) Negative (NEGATIVE) 05/11/19 00:06 Urine Ketones Negative (NEGATIVE) 05/11/19 00:06 Urine Blood Negative (NEGATIVE) 05/11/19 00:06 Urine Nitrite Negative (NEGATIVE) 05/11/19 00:06 Urine Bilirubin Negative (NEGATIVE) 05/11/19 00:06 Urine Urobilinogen 0.2 mg/dL (0.2-1.0) 05/11/19 00:06 Ur Leukocyte Esterase Negative (NEGATIVE) 05/11/19 00:06 RPR Titer Nonreactive (NONREACTIVE) 05/11/19 07:50 lab noted Assessment: 05/12/19 11:25 alcohol withdrawal sx Plan: continue alcohol detox
[2019-05-12] MEDS: MAG HYDROX/AL HYDROX/SIMETH 30 ML UNIT-DOSE CUP PO PRN (15:19)
[2019-05-12] MEDS: QUEtiapine FUMARATE 50 MG TABLET PO PRN (22:39)
[2019-05-12] MEDS: THIAMINE HCL 100 MG TABLET (FP) PO SCH (22:40)
[2019-05-13] MEDS ORDERED: chlordiazePOXIDE HCL 10 MG CAPSULE PO PRN
[2019-05-13] MEDS ORDERED: METHADONE HCL 10 MG TABLET ONE (04:13)
[2019-05-13] MEDS ORDERED: METHADONE HCL 40 MG DISPERSABLE TABLET ONE (04:14)
[2019-05-13] MEDS: METHADONE 80 MG, METHADONE 10 MG PO SCH (06:18)
[2019-05-13] MEDS: chlordiazePOXIDE HCL 10 MG CAPSULE PO SCH ×4 (06:18→22:32)
[2019-05-13] MEDS: PRENATAL VITAMINS W/ FOLIC ACID TABLET (FP) PO SCH (10:15)
[2019-05-13] MEDS: amLODIPine BESYLATE 10 MG TABLET (FP) PO SCH (10:15)
[2019-05-13] MEDS: LISINOPRIL 10 MG TABLET (FP) PO SCH ×2 (10:15→22:32)
[2019-05-13] MEDS: NICOTINE 7 MG/24 HOURS TOPICAL PATCH TD SCH (10:15)
--- NOTE | 2019-05-13 13:11 | PN ---
S CIWA - CIWA Score Nausea/Vomitin Muscle Tremors: 2 Anxiety: 1-Mildly Anxious Agitation: 2 Paroxysmal Sweats: No Perspiration Orientation: 0-Oriented Tacttile Disturbances: 0-None Auditory Disturbances: 0-None Visual Disturbances: 0-None Headache: 1-Very Mild CIWA-Ar Total Score: 8 BHS Progress Note (SOAP) Subjective: alert,irritable,anxious,interrupted sleep,tremor Objective: 05/13/19 13:10 Vital Signs Temperature 97.8 F 05/13/19 09:10 Pulse Rate 59 L 05/13/19 09:10 Respiratory Rate 18 05/13/19 09:10 Blood Pressure 94/61 05/13/19 09:10 O2 Sat by Pulse Oximetry (%) Assessment: 05/13/19 13:10 withdrawal symptom Plan: continue detox
[2019-05-13] MEDS: MAG HYDROX/AL HYDROX/SIMETH 30 ML UNIT-DOSE CUP PO PRN (18:27)
[2019-05-13] MEDS: THIAMINE HCL 100 MG TABLET (FP) PO SCH (22:32)
[2019-05-13] MEDS: QUEtiapine FUMARATE 50 MG TABLET PO PRN (22:34)
[2019-05-14] MEDS ORDERED: METHADONE HCL 10 MG TABLET ONE (04:28)
[2019-05-14] MEDS ORDERED: METHADONE HCL 40 MG DISPERSABLE TABLET ONE (04:28)
[2019-05-14] MEDS: chlordiazePOXIDE HCL 10 MG CAPSULE PO SCH ×2 (05:43→17:56)
[2019-05-14] MEDS: METHADONE 80 MG, METHADONE 10 MG PO SCH (05:44)
[2019-05-14] MEDS: amLODIPine BESYLATE 10 MG TABLET (FP) PO SCH (10:18)
[2019-05-14] MEDS: LISINOPRIL 10 MG TABLET (FP) PO SCH (10:18)
[2019-05-14] MEDS: PRENATAL VITAMINS W/ FOLIC ACID TABLET (FP) PO SCH (10:18)
[2019-05-14] MEDS: NICOTINE 7 MG/24 HOURS TOPICAL PATCH TD SCH (10:20)
--- NOTE | 2019-05-14 16:17 | DS ---
[facility] Detox Discharge Summary Admission Date: 05/10/19 Discharge Date: 05/14/19 - History Present History: Alcohol Dependence, Opioid Dependence, MMTP Additional Comments: PATIENT GOING ON TO [facility] ([place], [place]) FOR AFTERCARE. PATIENT WAS DISCHARGED FROM DETOX UNIT TO BE TAKEN OVER TO REHAB UNIT IN STABLE MEDICAL CONDITION. Pertinent Past History: Hep C, HTN, M.M.T.P., History Of Liver Mass (Resected), Weight Loss, Nicotine Dependence. - Physical Exam Results Vital Signs: Vital Signs Temperature 97.2 F L 05/14/19 13:36 Pulse Rate 68 05/14/19 13:36 Respiratory Rate 18 05/14/19 13:36 Blood Pressure 121/72 05/14/19 13:36 O2 Sat by Pulse Oximetry (%) Pertinent Admission Physical Exam Findings: WITHDRAWAL SYMPTOMS. Laboratory Tests 05/11/19 05/11/19 05/11/19 00:06 07:50 07:50 WBC 4.0 RBC 4.18 Hgb 13.2 Hct 39.3 MCV 93.9 MCH 31.5 MCHC 33.5 RDW 14.7 Plt Count 247 MPV 8.1 Sodium 139 Potassium 4.1 Chloride 104 Carbon Dioxide 32 Anion Gap 3 L BUN 16.3 Creatinine 1.1 Est GFR (CKD-EPI)AfAm 82.95 Est GFR (CKD-EPI)NonAf 71.57 Random Glucose 92 Calcium 8.7 Total Bilirubin 0.9 AST 50 H ALT 25 Alkaline Phosphatase 109 Total Protein 7.8 Albumin 3.1 L Urine Color Yellow Urine Appearance Clear Urine pH 5.5 Ur Specific [place] 1.006 L Urine Protein Negative Urine Glucose (UA) Negative Urine Ketones Negative Urine Blood Negative Urine Nitrite Negative Urine Bilirubin Negative Urine Urobilinogen 0.2 Ur Leukocyte Esterase Negative RPR Titer 05/11/19 07:50 WBC RBC Hgb Hct MCV MCH MCHC RDW Plt Count MPV Sodium Potassium Chloride Carbon Dioxide Anion Gap BUN Creatinine Est GFR (CKD-EPI)AfAm Est GFR (CKD-EPI)NonAf Random Glucose Calcium Total Bilirubin AST ALT Alkaline Phosphatase Total Protein Albumin Urine Color Urine Appearance Urine pH Ur Specific [place] Urine Protein Urine Glucose (UA) Urine Ketones Urine Blood Urine Nitrite Urine Bilirubin Urine Urobilinogen Ur Leukocyte Esterase RPR Titer Nonreactive LABS NOTED. - Treatment Hospital Course: Detox Protocol Followed, Detoxed Safely, Responded well, Discharged Condition Good, Rehab Referral Accepted Patient has Accepted a Rehab Referral to: [facility] ([place], [place]). - Medication Discharge Medications: Ambulatory Orders Quetiapine Fumarate [Seroquel -] 50 mg PO HS #30 tablet 04/26/18 Amlodipine Besylate [Norvasc -] 10 mg PO DAILY #30 tablet 04/30/18 Citalopram Hydrobromide [Celexa -] 20 mg PO HS 12/29/18 Lisinopril [Prinivil] 10 mg PO BID 12/30/18 - Diagnosis (1) Alcohol dependence with uncomplicated withdrawal Current Visit: Yes Status: Acute (2) Nicotine dependence Current Visit: Yes Status: Acute Qualifiers: Nicotine product type: cigarettes Substance use status: in withdrawal Qualified Code(s): F17.213 - Nicotine dependence, cigarettes, with withdrawal (3) Weight loss Current Visit: Yes Status: Acute (4) Hepatitis C carrier Current Visit: Yes Status: Chronic (5) History of surgery of liver Current Visit: Yes Status: Chronic (6) Hypertension Current Visit: Yes Status: Chronic Qualifiers: Hypertension type: unspecified Qualified Code(s): I10 - Essential (primary ) hypertension (7) Methadone maintenance therapy patient Current Visit: Yes Status: Chronic - AMA Did Patient Leave Against Medical Advice: No
[2019-05-14 21:24] VITALS: BP 144/75; PULSE 76; TEMP 97
[2019-05-15] MEDS ORDERED: chlordiazePOXIDE HCL 10 MG CAPSULE PO ONE (05:00)
== END 2019-05-14 10:10 | disposition other institution (70) | DRG 773 ==
LOC: YASAS 13:08 → Y3N 17:53
PROVIDERS: ADMIT Surgery; ATTEND Surgery
PROC: HZ2ZZZZ Detoxification Services for Substance Abuse Treatment (ICD-10-PCS; principal; 2019-05-10)
DX: F10.230 Alcohol dependence with withdrawal, uncomplicated (principal); F11.20 Opioid dependence, uncomplicated; F17.210 Nicotine dependence, cigarettes, uncomplicated; F32.9 Major depressive disorder, single episode, unspecified; I10 Essential (primary) hypertension; B18.2 Chronic viral hepatitis C; R63.4 Abnormal weight loss; Z68.23 Body mass index [BMI] 23.0-23.9, adult; Z98.890 Other specified postprocedural states
CPT/HCPCS: 36415; 80053; 81003; 85027; 86593; J0735; Q0162

== ENCOUNTER 2019-05-14 22:27 | Inpatient (IN) | payer OTHER ==
[2019-05-14] MEDS ORDERED: MAGNESIUM CITRATE 300 ML BOTTLE PO PRN (22:32)
[2019-05-14] MEDS ORDERED: LOPERAMIDE HCL 2 MG CAPSULE PO PRN (22:32)
[2019-05-14] MEDS ORDERED: P-EPHED 60MG/TRIPROLIDI 2.5MG TABLET PO PRN (22:32)
[2019-05-14] MEDS ORDERED: MENTHOL/PHENOL 1 EACH UD MM PRN (22:32)
[2019-05-14] MEDS ORDERED: NICOTINE POLACRILEX 2 MG GUM BUC PRN (22:32)
[2019-05-14] MEDS ORDERED: MAG HYDROX/AL HYDROX/SIMETH 30 ML UNIT-DOSE CUP PO PRN (22:32)
[2019-05-14] MEDS ORDERED: guaiFENesin 200 MG/10 ML 10 ML UNIT-DOSE CUPS PO PRN (22:32)
--- NOTE | 2019-05-14 22:32 | HP ---
[facility] Rehab Assess/Revision - Admission History Admitted to Rehab from: [facility] - Findings Detox History & Physical reviewed: Yes Concur with findings: Yes Inpatient Rehab Admission - Rehab Decision to Admit Inpatient rehab admission?: Yes - Initial Determination Are CD services needed?: No Free of communicable disease: Yes Not in need of hospitalization: Yes - Rehab Admission Criteria Previous failed treatment: Yes Poor recovery environment: Yes Comorbidities: Yes Lacks judgement: No Patient is meeting Inpatient Rehab admission criteria:: Yes
[2019-05-14] MEDS ORDERED: QUEtiapine FUMARATE 50 MG TABLET PO ONE (23:16)
[2019-05-15] MEDS ORDERED: METHADONE HCL 10 MG TABLET ONE (07:12)
[2019-05-15] MEDS ORDERED: METHADONE HCL 40 MG DISPERSABLE TABLET ONE (07:12)
[2019-05-15] MEDS: METHADONE 80 MG, METHADONE 10 MG PO SCH (07:13)
[2019-05-15] MEDS ORDERED: METHADONE HCL 10 MG TABLET PO SCH (07:15)
[2019-05-15] MEDS ORDERED: METHADONE 80 MG, METHADONE 10 MG PO SCH (07:30)
[2019-05-15] MEDS: amLODIPine BESYLATE 10 MG TABLET (FP) PO SCH (09:52)
[2019-05-15] MEDS: NICOTINE 14 MG/24 HOURS TOPICAL PATCH TD SCH (09:52)
[2019-05-15] MEDS: PRENATAL VITAMINS W/ FOLIC ACID TABLET (FP) PO SCH (09:52)
[2019-05-15] MEDS: LISINOPRIL 10 MG TABLET (FP) PO SCH ×2 (09:52→21:10)
[2019-05-15] MEDS: IBUPROFEN 400 MG TABLET (FP) PO PRN (14:42)
[2019-05-15] MEDS: THIAMINE HCL 100 MG TABLET (FP) PO SCH (21:10)
[2019-05-16] MEDS: MELATONIN 5 MG TABLETS PO PRN ×2 (00:42→21:31)
[2019-05-16] MEDS ORDERED: METHADONE HCL 40 MG DISPERSABLE TABLET ONE (05:50)
[2019-05-16] MEDS ORDERED: METHADONE HCL 10 MG TABLET ONE (05:50)
[2019-05-16] MEDS: METHADONE 80 MG, METHADONE 10 MG PO SCH (06:15)
[2019-05-16] MEDS: amLODIPine BESYLATE 10 MG TABLET (FP) PO SCH (10:12)
[2019-05-16] MEDS: LISINOPRIL 10 MG TABLET (FP) PO SCH ×2 (10:12→21:31)
[2019-05-16] MEDS: PRENATAL VITAMINS W/ FOLIC ACID TABLET (FP) PO SCH (10:12)
[2019-05-16] MEDS: NICOTINE 14 MG/24 HOURS TOPICAL PATCH TD SCH (10:13)
[2019-05-16] MEDS: THIAMINE HCL 100 MG TABLET (FP) PO SCH (21:31)
[2019-05-16] MEDS ORDERED: QUEtiapine FUMARATE 50 MG TABLET PO ONE (22:48)
[2019-05-17] MEDS ORDERED: METHADONE HCL 40 MG DISPERSABLE TABLET ONE (05:58)
[2019-05-17] MEDS ORDERED: METHADONE HCL 10 MG TABLET ONE (05:58)
[2019-05-17] MEDS: METHADONE 80 MG, METHADONE 10 MG PO SCH (06:24)
[2019-05-17] MEDS: amLODIPine BESYLATE 10 MG TABLET (FP) PO SCH (10:26)
[2019-05-17] MEDS: NICOTINE 14 MG/24 HOURS TOPICAL PATCH TD SCH (10:26)
[2019-05-17] MEDS: PRENATAL VITAMINS W/ FOLIC ACID TABLET (FP) PO SCH (10:26)
--- NOTE | 2019-05-17 11:59 | CONSULT ---
[facility] Psychiatric Consult - Data Date of interview: 05/17/19 Admission source: 3N Identifying data: Mr Phelps is a 63 years old [place] male, father of 2 children, uneployed receiving SSI, homeless seeking detox treatment for alcohol Substance Abuse History: Reports history of alcohol use. Refer to addiction counselor's summary for further information Medical History: Reports history of hypertension, hepatitis C, lower back pain and arthritis (both hands), GERD, history of surgery for resection of hepatic mass in 2017. Smokes 4 cigarettes daily Psychiatric History: Patient reports that his first psychiatric contact was in 2006 when he was diagnosed with MDD and Anxiety Disorder and started on medications. Reports that most recent outpatient treament was approximately 5 months ago at [facility] under the care of Dr Chavarria. He was prescribed Seroquel 50 mg/hs and Citalopram 20 mg/day. Told speech writer that he has been off medications since he stopped seeing Dr Quintanilla. Requests to restart both medications during this admission. Denies previous psychiatric hospitalization or suicidal attempt. Reports that back in the early 70's, due to his jealousy accusing him of cheating with another woman, he had suicidal ideations with intent to jump off a roof. At present, reports feeling depressed and sleeping poorly Physical/Sexual Abuse/Trauma History: Denies history of emotional, physical or sexual abuse. Denies DV relationship. No service Additional Comment: Reports history of 2 previous felony convictions on charges of drug sale for both, serving 1.5 years for the first and 3.5 years for the second Mental Status Exam - Mental Status Exam Alert and Oriented to: Time, Place, Person Cognitive Function: Fair Patient Appearance: Well Groomed Mood: Depressed Affect: Appropriate Patient Behavior: Cooperative Speech Pattern: Clear Voice Loudness: Normal Thought Process: Intact Thought Disorder: Not Present Hallucinations: Denies Suicidal Ideation: Denies Homicidal Ideation: Denies Insight/Judgement: Fair Sleep: Poorly Appetite: Poor Muscle strength/Tone: Normal Gait/Station: Normal Psychiatric Findings - Problem List ([place] 1, 2,3) (1) Depressive disorder Current Visit: No Status: Chronic Comment: By history. (2) MDD (major depressive disorder) Current Visit: Yes Status: Ruled-out (3) Alcohol-induced mood disorder Current Visit: Yes Status: Acute (4) Alcohol-induced sleep disorder Current Visit: Yes Status: Acute (5) Alcohol dependence with uncomplicated withdrawal Current Visit: No Status: Acute (6) Nicotine dependence Current Visit: No Status: Chronic Qualifiers: Nicotine product type: cigarettes Substance use status: in withdrawal Qualified Code(s): F17.213 - Nicotine dependence, cigarettes, with withdrawal (7) Hypertension Current Visit: No Status: Chronic Qualifiers: Hypertension type: unspecified Qualified Code(s): I10 - Essential (primary ) hypertension Comment: FORGOT NAME OF MEDICINE BUT LAST TOOK IT LAST WEEK. SEES DR CALVERT AT [facility](NOW [facility]). (8) Hepatitis C carrier Current Visit: No Status: Chronic (9) Arthritis, shoulder region Current Visit: No Status: Chronic (10) GERD (gastroesophageal reflux disease) Current Visit: No Status: Chronic Qualifiers: Esophagitis presence: esophagitis presence not specified Qualified Code(s) : K21.9 - Gastro-esophageal reflux disease without esophagitis - Initial Treatment Plan Initial Treatment Plan: 1) Resume Celexa 20 mg po daily and Seroquel 50 mg po HS. 2) Continue inpatient rehabilitation
[2019-05-17] MEDS: CITALOPRAM HYDROBROMIDE 20 MG TABLET (FP) PO SCH (14:16)
[2019-05-17] MEDS: LISINOPRIL 10 MG TABLET (FP) PO SCH ×2 (14:16→21:19)
[2019-05-17] MEDS: THIAMINE HCL 100 MG TABLET (FP) PO SCH (21:19)
[2019-05-17] MEDS: QUEtiapine FUMARATE 50 MG TABLET PO SCH (21:20)
[2019-05-18] MEDS ORDERED: METHADONE HCL 40 MG DISPERSABLE TABLET ONE (04:00)
[2019-05-18] MEDS ORDERED: METHADONE HCL 10 MG TABLET ONE (04:00)
[2019-05-18] MEDS: METHADONE 80 MG, METHADONE 10 MG PO SCH (06:04)
[2019-05-18] MEDS: amLODIPine BESYLATE 10 MG TABLET (FP) PO SCH (10:21)
[2019-05-18] MEDS: NICOTINE 14 MG/24 HOURS TOPICAL PATCH TD SCH (10:21)
[2019-05-18] MEDS: LISINOPRIL 10 MG TABLET (FP) PO SCH ×2 (10:21→21:30)
[2019-05-18] MEDS: CITALOPRAM HYDROBROMIDE 20 MG TABLET (FP) PO SCH (10:21)
[2019-05-18] MEDS: IBUPROFEN 400 MG TABLET (FP) PO PRN (10:21)
[2019-05-18] MEDS: PRENATAL VITAMINS W/ FOLIC ACID TABLET (FP) PO SCH (10:21)
[2019-05-18] MEDS: MELATONIN 5 MG TABLETS PO PRN (21:30)
[2019-05-18] MEDS: QUEtiapine FUMARATE 50 MG TABLET PO SCH (21:30)
[2019-05-18] MEDS: THIAMINE HCL 100 MG TABLET (FP) PO SCH (21:30)
[2019-05-19] MEDS ORDERED: METHADONE HCL 40 MG DISPERSABLE TABLET ONE (05:36)
[2019-05-19] MEDS ORDERED: METHADONE HCL 10 MG TABLET ONE (05:36)
[2019-05-19] MEDS: METHADONE 80 MG, METHADONE 10 MG PO SCH (06:29)
[2019-05-19] MEDS: LISINOPRIL 10 MG TABLET (FP) PO SCH ×2 (10:21→21:22)
[2019-05-19] MEDS: CITALOPRAM HYDROBROMIDE 20 MG TABLET (FP) PO SCH (10:21)
[2019-05-19] MEDS: amLODIPine BESYLATE 10 MG TABLET (FP) PO SCH (10:21)
[2019-05-19] MEDS: PRENATAL VITAMINS W/ FOLIC ACID TABLET (FP) PO SCH (10:21)
[2019-05-19] MEDS: NICOTINE 14 MG/24 HOURS TOPICAL PATCH TD SCH (10:22)
[2019-05-19] MEDS: QUEtiapine FUMARATE 50 MG TABLET PO SCH (21:22)
[2019-05-19] MEDS: THIAMINE HCL 100 MG TABLET (FP) PO SCH (21:22)
[2019-05-20] MEDS ORDERED: METHADONE HCL 40 MG DISPERSABLE TABLET ONE (05:34)
[2019-05-20] MEDS ORDERED: METHADONE HCL 10 MG TABLET ONE (05:34)
[2019-05-20] MEDS: METHADONE 80 MG, METHADONE 10 MG PO SCH (06:20)
[2019-05-20] MEDS: NICOTINE 14 MG/24 HOURS TOPICAL PATCH TD SCH (10:47)
[2019-05-20] MEDS: CITALOPRAM HYDROBROMIDE 20 MG TABLET (FP) PO SCH (10:47)
[2019-05-20] MEDS: LISINOPRIL 10 MG TABLET (FP) PO SCH ×2 (10:47→21:09)
[2019-05-20] MEDS: amLODIPine BESYLATE 10 MG TABLET (FP) PO SCH (10:47)
[2019-05-20] MEDS: PRENATAL VITAMINS W/ FOLIC ACID TABLET (FP) PO SCH (10:47)
[2019-05-20] MEDS: IBUPROFEN 400 MG TABLET (FP) PO PRN (10:53)
[2019-05-20] MEDS: THIAMINE HCL 100 MG TABLET (FP) PO SCH (21:09)
[2019-05-20] MEDS: QUEtiapine FUMARATE 50 MG TABLET PO SCH (21:09)
[2019-05-21] MEDS ORDERED: METHADONE HCL 10 MG TABLET ONE (05:45)
[2019-05-21] MEDS ORDERED: METHADONE HCL 40 MG DISPERSABLE TABLET ONE (05:45)
[2019-05-21] MEDS: METHADONE 80 MG, METHADONE 10 MG PO SCH (06:43)
[2019-05-21] MEDS: NICOTINE 14 MG/24 HOURS TOPICAL PATCH TD SCH (10:12)
[2019-05-21] MEDS: PRENATAL VITAMINS W/ FOLIC ACID TABLET (FP) PO SCH (10:12)
[2019-05-21] MEDS: CITALOPRAM HYDROBROMIDE 20 MG TABLET (FP) PO SCH (10:12)
[2019-05-21] MEDS: LISINOPRIL 10 MG TABLET (FP) PO SCH ×2 (11:00→22:04)
[2019-05-21] MEDS: amLODIPine BESYLATE 10 MG TABLET (FP) PO SCH (11:00)
[2019-05-21] MEDS: MAGNESIUM HYDROX 2400MG/30ML ORAL SUSPENSION 30 ML CUP PO PRN (11:19)
[2019-05-21] MEDS: QUEtiapine FUMARATE 50 MG TABLET PO SCH (22:04)
[2019-05-21] MEDS: THIAMINE HCL 100 MG TABLET (FP) PO SCH (22:04)
[2019-05-21] MEDS: MELATONIN 5 MG TABLETS PO PRN (22:04)
[2019-05-22] MEDS ORDERED: METHADONE HCL 10 MG TABLET ONE (05:37)
[2019-05-22] MEDS ORDERED: METHADONE HCL 40 MG DISPERSABLE TABLET ONE (05:37)
[2019-05-22] MEDS: METHADONE 80 MG, METHADONE 10 MG PO SCH (06:05)
[2019-05-22] MEDS: LISINOPRIL 10 MG TABLET (FP) PO SCH ×2 (10:25→21:32)
[2019-05-22] MEDS: PRENATAL VITAMINS W/ FOLIC ACID TABLET (FP) PO SCH (10:25)
[2019-05-22] MEDS: CITALOPRAM HYDROBROMIDE 20 MG TABLET (FP) PO SCH (10:25)
[2019-05-22] MEDS: amLODIPine BESYLATE 10 MG TABLET (FP) PO SCH (10:25)
[2019-05-22] MEDS: NICOTINE 14 MG/24 HOURS TOPICAL PATCH TD SCH (10:26)
[2019-05-22] MEDS: MAGNESIUM HYDROX 2400MG/30ML ORAL SUSPENSION 30 ML CUP PO PRN (10:57)
[2019-05-22] MEDS: QUEtiapine FUMARATE 50 MG TABLET PO SCH (21:32)
[2019-05-22] MEDS: THIAMINE HCL 100 MG TABLET (FP) PO SCH (21:33)
[2019-05-23] MEDS ORDERED: METHADONE HCL 40 MG DISPERSABLE TABLET ONE (05:38)
[2019-05-23] MEDS ORDERED: METHADONE HCL 10 MG TABLET ONE (05:38)
[2019-05-23] MEDS: METHADONE 80 MG, METHADONE 10 MG PO SCH (05:44)
[2019-05-23] MEDS: ACETAMINOPHEN 325 MG TABLET (FP) PO PRN ×2 (08:01→21:34)
[2019-05-23] MEDS: LISINOPRIL 10 MG TABLET (FP) PO SCH ×2 (10:07→21:33)
[2019-05-23] MEDS: amLODIPine BESYLATE 10 MG TABLET (FP) PO SCH (10:07)
[2019-05-23] MEDS: PRENATAL VITAMINS W/ FOLIC ACID TABLET (FP) PO SCH (10:07)
[2019-05-23] MEDS: NICOTINE 14 MG/24 HOURS TOPICAL PATCH TD SCH (10:07)
[2019-05-23] MEDS: CITALOPRAM HYDROBROMIDE 20 MG TABLET (FP) PO SCH (10:07)
[2019-05-23] MEDS: QUEtiapine FUMARATE 50 MG TABLET PO SCH (21:33)
[2019-05-23] MEDS: THIAMINE HCL 100 MG TABLET (FP) PO SCH (21:33)
[2019-05-24] MEDS ORDERED: METHADONE HCL 10 MG TABLET ONE (05:53)
[2019-05-24] MEDS ORDERED: METHADONE HCL 40 MG DISPERSABLE TABLET ONE (05:53)
[2019-05-24] MEDS: METHADONE 80 MG, METHADONE 10 MG PO SCH (06:11)
[2019-05-24 06:48] VITALS: BP 136/55; PULSE 61; TEMP 97.9
[2019-05-24] MEDS: CITALOPRAM HYDROBROMIDE 20 MG TABLET (FP) PO SCH (09:44)
[2019-05-24] MEDS: PRENATAL VITAMINS W/ FOLIC ACID TABLET (FP) PO SCH (09:44)
[2019-05-24] MEDS: amLODIPine BESYLATE 10 MG TABLET (FP) PO SCH (09:44)
[2019-05-24] MEDS: NICOTINE 14 MG/24 HOURS TOPICAL PATCH TD SCH (09:44)
[2019-05-24] MEDS: LISINOPRIL 10 MG TABLET (FP) PO SCH (09:44)
--- NOTE | 2019-05-24 11:14 | PN ---
[facility] Progress Note (SOAP) Subjective: PT COMPLETED REHAB AND DISCHARGED TODAY. WHILE REHAB PT ATTENDED GROUP ACTIVITIES WELL COMPLETED INDIVIDUAL ASSIGNMENTS. PT MET WITH HIS COUNSELOR AND HAS BEEN REFERRED TO [facility] FOR CD AFTERCARE. PT REPORTS HE HAS PRIMARY CARE AT [facility]. COURTESY RX ELECTRONICALLY SENT TO PT'S PHARMACY-[facility] AFTER DISCHARGE TODAY. PT IS ALERT O X 3. DENIES S/H/I. Objective: 05/24/19 11:14 Vital Signs 05/24/19 05/24/19 03:30 06:47 Temperature 97.9 F Pulse Rate 61 Respiratory 18 16 Rate Blood Pressure 136/55 L Home Medications Medication Instructions Recorded Quetiapine Fumarate [Seroquel -] 50 mg PO HS #30 tablet 04/26/18 Citalopram Hydrobromide [Celexa -] 20 mg PO HS 12/29/18 Amlodipine Besylate [Norvasc -] 10 mg PO DAILY #14 tablet 05/24/19 Lisinopril [Prinivil] 10 mg PO BID #14 tablet 05/24/19 Assessment: 05/24/19 11:15 NAD MEDICALLY STABLE [facility] Inpatient Services Medical - Diagnosis (1) Weight loss Current Visit: Yes Status: Acute (2) Hepatitis C carrier Current Visit: No Status: Chronic (3) History of surgery of liver Current Visit: Yes Status: Resolved (4) Hypertension Qualifiers: Hypertension type: essential hypertension Qualified Code(s): I10 - Essential (primary) hypertension Current Visit: Yes Status: Chronic (5) Methadone maintenance therapy patient Current Visit: Yes Status: Chronic (6) Nicotine dependence Qualifiers: Nicotine product type: cigarettes Substance use status: in withdrawal Qualified Code(s): F17.213 - Nicotine dependence, cigarettes, with withdrawal Current Visit: Yes Status: Chronic Plan: D/C PT TODAY FOLLOW UP WITH CD AFTERCARE RECOMMENDATION. FOLLOW UP WITH PRIMARY CARE WITHIN 1-2 WEEKS AFTER DISCHARGE.
== END 2019-05-24 10:35 | disposition home or self-care (01) | DRG 772 ==
LOC: YASAS 22:27 → Y5N 22:29
PROVIDERS: ADMIT Neuromusculoskeletal Medicine & OMM; ATTEND Neuromusculoskeletal Medicine & OMM
PROC: HZ42ZZZ Group Counseling for Substance Abuse Treatment, Cognitive-Behavioral (ICD-10-PCS; principal; 2019-05-14)
DX: F10.20 Alcohol dependence, uncomplicated (principal); F10.24 Alcohol dependence with alcohol-induced mood disorder; F10.282 Alcohol dependence with alcohol-induced sleep disorder; F11.20 Opioid dependence, uncomplicated; F17.213 Nicotine dependence, cigarettes, with withdrawal; F32.9 Major depressive disorder, single episode, unspecified; I10 Essential (primary) hypertension; R63.4 Abnormal weight loss; B18.2 Chronic viral hepatitis C; K21.9 Gastro-esophageal reflux disease without esophagitis

== ENCOUNTER 2019-08-16 10:24 | Inpatient (IN) | payer OTHER ==
[2019-08-16 11:01] VITALS: BMI 22.6
--- NOTE | 2019-08-16 11:49 | HP ---
CIWA Score Nausea/Vomitin Muscle Tremors: 4-Moderate,w/Arms Extend Anxiety: 4-Mod. Anxious/Guarded Agitation: 4-Moderately Restless Paroxysmal Sweats: 1-Minimal Palms Moist Orientation: 0-Oriented Tacttile Disturbances: 2-Mild Itch/Numbness/Burn Auditory Disturbances: 0-None Visual Disturbances: 0-None Headache: 2-Mild CIWA-Ar Total Score: 20 - Admission Criteria OASAS Guidelines: Admission for Medically Managed Detox: Requires at least one of the followin. CIWA greater than 12 2. Seizures within the past 24 hours 3. Delirium tremens within the past 24 hours 4. Hallucinations within the past 24 hours 5. Acute intervention needed for co occurring medical disorder 6. Acute intervention needed for co occurring psychiatric disorder 7. Severe withdrawal that cannot be handled at a lower level of care (continued vomiting, continued diarrhea, abnormal vital signs) requiring intravenous medication and/or fluids 8. Admitting History and Physical - Smoking History Smoking history: Current every day smoker Have you smoked in the past 12 months: Yes Aproximately how many cigarettes per day: 4 - Alcohol/Substance Use Hx Alcohol Use: Yes Admission ROS S - HPI Allergies/Adverse Reactions: Allergies Allergy/AdvReac Type Severity Reaction Status Date / Time No Known Allergies Allergy Verified 08/16/19 10:50 History of Present Illness: pt here requesting detox from etoh use , reports 2-3 pints liquor /day , relapsed 1 week after d/c from this facility , latest use this morning, current symptoms as above , reports tremors if not drinking , denies blackouts or seizures. on MMTP x 10 yrs [facility]ly [facility] Izard 90 mg latest dose today . 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 Exam Limitations: Clinical Condition - Ebola screening Have you traveled outside of the country in the last 21 days: No (N) Have you had contact with anyone from an Ebola affected area: No Do you have a fever: No - Review of Systems Constitutional: See HPI, Loss of Appetite, Malaise, Unintentional Wgt. Loss EENT: reports: Other (glasses , dentures ( lost both )) Respiratory: reports: No Symptoms reported Cardiac: reports: No Symptoms Reported GI: reports: See HPI, Poor Appetite, Vomiting, Abdominal cramping : reports: Other (hesitancy) Musculoskeletal: reports: Back Pain Integumentary: reports: Dryness Neuro: reports: Headache Endocrine: reports: No Symptoms Reported Psychiatric: reports: Orientated x3, Anxious Patient History - Patient Medical History Hx Anemia: No Hx Asthma: No Hx Chronic Obstructive Pulmonary Disease (COPD): No Hx Cancer: No Hx Cardiac Disorders: No Hx Congestive Heart Failure: No Hx Hypertension: Yes Hx Hypercholesterolemia: No Hx Pacemaker: No HX Cerebrovascular Accident: No Hx Seizures: No Hx Dementia: No Hx Diabetes: No Hx Gastrointestinal Disorders: No Hx Liver Disease: Yes (liver mass resectd at [facility] 2016, has been losing wt since) Hx Genitourinary Disorders: No Hx Sexually Transmitted Disorders: No Hx Renal Disease (ESRD): No Hx Thyroid Disease: No Hx Human Immunodeficiency Virus (HIV): No (NEGATIVE HX) Hx Hepatitis C: Yes (NOT TREATED) Hx Depression: Yes Hx Suicide Attempt: Yes (in 1974 suicidal ideation to jump off the roof) Hx Bipolar Disorder: No Hx Schizophrenia: No - Patient Surgical History Past Surgical History: Yes Hx Neurologic Surgery: No Hx Cataract Extraction: No Hx Cardiac Surgery: No Hx Lung Surgery: No Hx Breast Surgery: No Hx Breast Biopsy: No Hx Abdominal Surgery: Yes (removal of liver mass/biopsy (benign) in [facility]) Hx Appendectomy: No Hx Cholecystectomy: No Hx Genitourinary Surgery: No Hx Section: No Hx Orthopedic Surgery: No Hx Hysterectomy: No Anesthesia Reaction: No - PPD History Date: 09/02/17 Results: 7 mm - Smoking Cessation Smoking history: Current every day smoker Have you smoked in the past 12 months: Yes Aproximately how many cigarettes per day: 4 Cigars Per Day: 0 Hx Chewing Tobacco Use: No Initiated information on smoking cessation: Yes 'Breaking Loose' booklet given: 08/16/19 - Substances abused Alcohol Substance route: Oral Frequency: Daily Amount used: 1 PINT OF VODKA Age of first use: 16 Date of last use: 08/16/19 Admission Physical Exam BHS - Vital Signs Vital Signs: Vital Signs - 24 hr 08/16/19 08/16/19 10:52 11:11 Temperature 97.3 F L 97.3 F L Pulse Rate 66 66 Respiratory 18 18 Rate Blood Pressure 87/57 L 87/57 L - Physical General Appearance: Yes: Mild Distress, Alcohol on Breath, Intoxicated, Tremorous, Anxious HEENTM: Yes: EOMI, Hearing grossly Normal, Normocephalic, Normal Voice, Other ( edentulous) Respiratory: Yes: Chest Non-Tender, Lungs Clear, Normal Breath Sounds, No Respiratory Distress, No Accessory Muscle Use Neck: Yes: No masses,lesions,Nodules, Trachea in good position Cardiology: Yes: Regular Rhythm, Regular Rate, S1, S2 Abdominal: Yes: Non Tender, Soft, Distended Musculoskeletal: Yes: Gait Steady Extremities: Yes: Other (clubbing x 10 fingers) Neurological: Yes: Fully Oriented, Alert, Motor Strength 5/5, Depressed Affect Integumentary: Yes: Warm - Diagnostic (1) Alcohol dependence with uncomplicated withdrawal Current Visit: Yes Status: Acute (2) Nicotine dependence Current Visit: Yes Status: Chronic Qualifiers: Nicotine product type: cigarettes (3) Opioid dependence on agonist therapy Current Visit: Yes Status: Chronic Breathalyzer - Breathalyzer Breathalyzer: 0.046 Urine Drug Screen - Test Device Lot number: [id number] Expiration date: 04/08/21 - Control Is test valid?: Yes - Results Drug screen NEGATIVE: No Urine drug screen results: MTD-Methadone Inpatient Rehab Admission - Rehab Decision to Admit Inpatient rehab admission?: No
[2019-08-16] MEDS ORDERED: MAG HYDROX/AL HYDROX/SIMETH 30 ML UNIT-DOSE CUP PO PRN (12:00)
[2019-08-16] MEDS ORDERED: hydrOXYzine PAMOATE 25 MG CAPSULE (FP) PO PRN (12:00)
[2019-08-16] MEDS ORDERED: MENTHOL/PHENOL 1 EACH UD MM PRN (12:00)
[2019-08-16] MEDS ORDERED: MAGNESIUM CITRATE 300 ML BOTTLE PO PRN (12:00)
[2019-08-16] MEDS ORDERED: MAGNESIUM HYDROX 2400MG/30ML ORAL SUSPENSION 30 ML CUP PO PRN (12:00)
[2019-08-16] MEDS ORDERED: BISMUTH SUBSALICYLATE 524 MG/30 ML UD PO PRN (12:00)
[2019-08-16] MEDS ORDERED: IBUPROFEN 400 MG TABLET (FP) PO PRN (12:00)
[2019-08-16] MEDS ORDERED: chlordiazePOXIDE HCL 25 MG CAPSULE PO PRN (12:01)
[2019-08-16] MEDS ORDERED: METOPROLOL TARTRATE 25 MG TABLET (FP) PO ONE (15:12)
[2019-08-16] MEDS: amLODIPine BESYLATE 10 MG TABLET (FP) PO SCH (15:22)
[2019-08-16] MEDS: chlordiazePOXIDE HCL 25 MG CAPSULE PO SCH ×2 (17:21→22:07)
[2019-08-16] MEDS ORDERED: cloNIDine HCL 0.1 MG TABLET PO ONE (17:55)
[2019-08-16] MEDS: THIAMINE HCL 100 MG TABLET (FP) PO SCH (22:07)
[2019-08-16] MEDS: MELATONIN 5 MG TABLETS PO PRN (22:07)
[2019-08-16] MEDS ORDERED: ONDANSETRON *ODT* 4 MG TABLET SL ONE (23:57)
--- NOTE | 2019-08-17 | PN ---
S Progress Note Note: Patient complain of nausea. Denies vomiting at this time Vital Signs Temperature 97.9 F 08/16/19 21:40 Pulse Rate 60 08/16/19 21:40 Respiratory Rate 16 08/16/19 21:40 Blood Pressure 140/74 08/16/19 21:40 O2 Sat by Pulse Oximetry (%) Action: Ondansetron 4mg SL ordered
[2019-08-17] MEDS ORDERED: METHADONE HCL 10 MG TABLET ONE (04:06)
[2019-08-17] MEDS ORDERED: METHADONE HCL 40 MG DISPERSABLE TABLET ONE (04:07)
[2019-08-17] MEDS ORDERED: METHADONE HCL 10 MG TABLET PO SCH (06:00)
[2019-08-17] MEDS: METHADONE 80 MG, METHADONE 10 MG PO SCH (06:10)
[2019-08-17] MEDS: chlordiazePOXIDE HCL 25 MG CAPSULE PO SCH ×4 (06:10→22:13)
[2019-08-17] MEDS: amLODIPine BESYLATE 10 MG TABLET (FP) PO SCH (10:31)
[2019-08-17] MEDS: PRENATAL VITAMINS W/ FOLIC ACID TABLET (FP) PO SCH (10:31)
--- NOTE | 2019-08-17 11:51 | PN ---
S CIWA - CIWA Score Nausea/Vomitin-Int. Nausea w/Dry Heave Muscle Tremors: 2 Anxiety: 3 Agitation: 2 Paroxysmal Sweats: No Perspiration Orientation: 0-Oriented Tacttile Disturbances: 1-Very Mild Itch/Numbness Auditory Disturbances: 0-None Visual Disturbances: 0-None Headache: 0-None Present CIWA-Ar Total Score: 12 BHS Progress Note (SOAP) Subjective: c/o of interrupted sleep, anxious, nausea, body aches, chills Objective: 08/17/19 11:51 Vital Signs Temperature 98.5 F 08/17/19 09:09 Pulse Rate 74 08/17/19 09:09 Respiratory Rate 18 08/17/19 09:09 Blood Pressure 179/96 H 08/17/19 09:09 O2 Sat by Pulse Oximetry (%) elevated BP , patient on lisinopril BID, meds ordered labs pending 08/17/19 11:53 Assessment: 08/17/19 11:53 Aox3 no acute distress, anxious, thin poor dentition, cheilitis full ROM no gait abnormality, ambulating in the unit withdrawal sx Plan: increase PO fluids continue lisinopril BID continue detox continue to monitor MAT reviewed benefits and risks
[2019-08-17 11:56] LABS: HEMATOCRIT 45.4 % (35.4-49); HEMOGLOBIN 15.2 GM/dL (11.7-16.9); MCH 32.5 pg (25.7-33.7); MCHC 33.4 g/dl (32.0-35.9); MEAN CELL VOLUME 97.2 fl (80-96); MEAN PLT VOLUME 8.3 fl (7.5-11.1); PLATELET COUNT 292 K/MM3 (134-434); RBC 4.67 M/mm3 (4.00-5.60); WHITE BLOOD COUNT 6.3 K/mm3 (4.0-10.0)
[2019-08-17 12:02] LABS: ALBUMIN 3.5 g/dl (3.4-5.0); BILIRUBIN,TOTAL 0.4 mg/dL (0.2-1); BLOOD UREA NITROGEN 20.3 mg/dL (7-18); CALCIUM 9.5 mg/dL (8.5-10.1); CREATININE 1.2 mg/dL (0.55-1.3); TOT PROT 8.7 g/dl (6.4-8.2)
[2019-08-17] MEDS: LISINOPRIL 10 MG TABLET (FP) PO SCH ×2 (12:52→22:13)
--- NOTE | 2019-08-17 19:09 | CONSULT ---
[facility] Psychiatric Consult - Data Date of interview: 08/17/19 Admission source: [facility] Identifying data: Readmission to [facility] for this 64 y/o [place] male, self-referred for detoxification treatment (alcohol, opioid). Examined at [address] [place] [address]. Patient is , a father of two, homeless ([facility]), unemployed and supported on SSI benefits. Substance Abuse History: Discussed in this interview. Details in current [facility] report as follows : Smoking history: Current every day smoker. Have you smoked in the past 12 months: Yes. Aproximately how many cigarettes per day: 4. Cigars Per Day: 0. Hx Chewing Tobacco Use: No. Initiated information on smoking cessation: Yes. 'Breaking Loose' booklet given: 08/16/19. - Substances abused. Alcohol. Substance route: Oral. Frequency: Daily. Amount used: 1 PINT OF VODKA. Age of first use: 16. Date of last use: 08/16/19 Medical History: Medical profile is remarkable for a history of hepatic mass ( resected at [facility] in 2017), cachexia, hypertension, hepatitis C, lower back pain and arthritis (both hands). Psychiatric History: Patient denies history of psychiatric hospitalizations. Diagnosed with MDD and Anxiety Disorder. Mr Phelps is still on methadone maintenance (90 mg/day) at the [facility] in the [place]. Maintained on a regimen of seroquel 50 mg po hs + citalopram 20 mg po daily. Questionable adherence to OPD care. Patient denies history of suicide attempts. Physical/Sexual Abuse/Trauma History: Patient denies. Additional Comment: Urine drug screen results: MTD-Methadone. Noted. Mental Status Exam - Mental Status Exam Alert and Oriented to: Time, Place, Person Cognitive Function: Grossly Intact Patient Appearance: Unkempt, Disheveled Mood: Withdrawn Affect: Mood Congruent, Constricted Patient Behavior: Fatigued, Cooperative Speech Pattern: Clear, Appropriate Voice Loudness: Normal Thought Process: Goal Oriented Thought Disorder: Not Present Hallucinations: Denies Suicidal Ideation: Denies Homicidal Ideation: Denies Insight/Judgement: Poor Sleep: Poorly, Difficulty falling asleep Appetite: Poor, Weight loss Gait/Station: Other (not observed; in bed for entire interview) Psychiatric Findings - Problem List ([place] 1, 2,3) (1) Alcohol dependence with uncomplicated withdrawal Current Visit: Yes Status: Acute (2) Opioid dependence on agonist therapy Current Visit: Yes Status: Chronic (3) Nicotine dependence Current Visit: Yes Status: Chronic Qualifiers: Nicotine product type: cigarettes (4) Substance induced mood disorder Current Visit: Yes Status: Suspected (5) MDD (major depressive disorder) Current Visit: Yes Status: Ruled-out Comment: By history and according to records. (6) Insomnia Current Visit: Yes Status: Chronic Qualifiers: Insomnia type: unspecified Qualified Code(s): G47.00 - Insomnia, unspecified - Initial Treatment Plan Initial Treatment Plan: Psychoeducation. Sleep hygiene. Detoxification. Will hold citalopram until EKG done. Resumed : seroquel 50 mg po hs. Side effects/ benefits discussed with the patient. Mr Phelps gave verbal consent to MD. Guthrie.
[2019-08-17] MEDS: QUEtiapine FUMARATE 50 MG TABLET PO SCH (22:12)
[2019-08-17] MEDS: THIAMINE HCL 100 MG TABLET (FP) PO SCH (22:13)
[2019-08-17] MEDS: MELATONIN 5 MG TABLETS PO PRN (22:15)
[2019-08-18] MEDS ORDERED: METHADONE HCL 40 MG DISPERSABLE TABLET ONE (05:01)
[2019-08-18] MEDS ORDERED: METHADONE HCL 10 MG TABLET ONE (05:01)
[2019-08-18] MEDS: METHADONE 80 MG, METHADONE 10 MG PO SCH (05:34)
[2019-08-18] MEDS: chlordiazePOXIDE HCL 25 MG CAPSULE PO SCH ×4 (05:34→22:13)
[2019-08-18] MEDS: LISINOPRIL 10 MG TABLET (FP) PO SCH ×2 (10:30→22:13)
[2019-08-18] MEDS: PRENATAL VITAMINS W/ FOLIC ACID TABLET (FP) PO SCH (10:30)
[2019-08-18] MEDS: amLODIPine BESYLATE 10 MG TABLET (FP) PO SCH (10:30)
--- NOTE | 2019-08-18 17:59 | PN ---
S CIWA - CIWA Score Nausea/Vomitin Muscle Tremors: None Anxiety: 3 Agitation: 4-Moderately Restless Paroxysmal Sweats: No Perspiration Orientation: 2-Disoriented Date<2 days Tacttile Disturbances: 0-None Auditory Disturbances: 0-None Visual Disturbances: 0-None Headache: 0-None Present CIWA-Ar Total Score: 12 BHS Progress Note (SOAP) Subjective: Poor Appetite, Nausea, anxious, Restless. Objective: PATIENT A & O X 2 (UNCERTAIN ABOUT CURRENT DAY/ DATE). PATIENT OBSERVED AMBULATING ON DETOX UNIT UNASSISTED. IN NO ACUTE DISTRESS. 08/18/19 17:57 Vital Signs Temperature 97.6 F 08/18/19 14:26 Pulse Rate 70 08/18/19 14:26 Respiratory Rate 18 08/18/19 14:26 Blood Pressure 140/81 08/18/19 14:26 O2 Sat by Pulse Oximetry (%) Laboratory Tests 08/17/19 08/17/19 08/17/19 08:45 08:45 08:45 WBC 6.3 RBC 4.67 Hgb 15.2 Hct 45.4 D MCV 97.2 H MCH 32.5 MCHC 33.4 RDW 15.0 Plt Count 292 MPV 8.3 Sodium 138 Potassium 4.0 Chloride 102 Carbon Dioxide 30 Anion Gap 6 L BUN 20.3 H Creatinine 1.2 Est GFR (CKD-EPI)AfAm 74.14 Est GFR (CKD-EPI)NonAf 63.97 Random Glucose 104 Calcium 9.5 Total Bilirubin 0.4 AST 72 H ALT 30 Alkaline Phosphatase 129 H Total Protein 8.7 H Albumin 3.5 RPR Titer Nonreactive HIV 1&2 Ag/Ab, 4th Gen 08/17/19 08:45 WBC RBC Hgb Hct MCV MCH MCHC RDW Plt Count MPV Sodium Potassium Chloride Carbon Dioxide Anion Gap BUN Creatinine Est GFR (CKD-EPI)AfAm Est GFR (CKD-EPI)NonAf Random Glucose Calcium Total Bilirubin AST ALT Alkaline Phosphatase Total Protein Albumin RPR Titer HIV 1&2 Ag/Ab, 4th Gen Non reactive LABS NOTED. PATIENT HAS HAD ELEVATED AST AND ALKALINE PHOSPHATASE LEVELS ON PREVIOUS ADMISSIONS. 08/18/19 17:58 Assessment: 08/18/19 17:58 WITHDRAWAL SYMPTOMS. ELEVATED ALKALINE PHOSPHATASE LEVEL. ELEVATED AST LEVEL. Plan: CONTINUE DETOX. INCREASE DAILY PO WATER INTAKE. ENSURE PO FOR CALORIC SUPPLEMENTATION.
[2019-08-18] MEDS: THIAMINE HCL 100 MG TABLET (FP) PO SCH (22:13)
[2019-08-18] MEDS: QUEtiapine FUMARATE 50 MG TABLET PO SCH (22:13)
[2019-08-18] MEDS: MELATONIN 5 MG TABLETS PO PRN (22:14)
[2019-08-19] MEDS ORDERED: chlordiazePOXIDE HCL 10 MG CAPSULE PO PRN
[2019-08-19] MEDS ORDERED: METHADONE HCL 40 MG DISPERSABLE TABLET ONE (04:32)
[2019-08-19] MEDS ORDERED: METHADONE HCL 10 MG TABLET ONE (04:32)
[2019-08-19] MEDS: chlordiazePOXIDE HCL 10 MG CAPSULE PO SCH ×4 (05:23→22:12)
[2019-08-19] MEDS: METHADONE 80 MG, METHADONE 10 MG PO SCH (05:23)
[2019-08-19] MEDS: LISINOPRIL 10 MG TABLET (FP) PO SCH ×2 (10:16→22:12)
[2019-08-19] MEDS: amLODIPine BESYLATE 10 MG TABLET (FP) PO SCH (10:16)
[2019-08-19] MEDS: PRENATAL VITAMINS W/ FOLIC ACID TABLET (FP) PO SCH (10:16)
--- NOTE | 2019-08-19 17:45 | PN ---
S CIWA - CIWA Score Nausea/Vomitin Muscle Tremors: None Anxiety: 3 Agitation: 4-Moderately Restless Paroxysmal Sweats: No Perspiration Orientation: 0-Oriented Tacttile Disturbances: 1-Very Mild Itch/Numbness Auditory Disturbances: 0-None Visual Disturbances: 0-None Headache: 0-None Present CIWA-Ar Total Score: 10 BHS Progress Note (SOAP) Subjective: Anxious, Restless, Nausea, Poor Appetite. Objective: PATIENT A & O X 3, OBSERVED AMBULATING ON DETOX UNIT UNASSISTED. IN NO ACUTE DISTRESS. 08/19/19 17:47 Vital Signs Temperature 98.1 F 08/19/19 17:41 Pulse Rate 73 08/19/19 17:41 Respiratory Rate 16 08/19/19 17:41 Blood Pressure 104/56 L 08/19/19 17:41 O2 Sat by Pulse Oximetry (%) Laboratory Tests 08/17/19 08/17/19 08/17/19 08:45 08:45 08:45 WBC 6.3 RBC 4.67 Hgb 15.2 Hct 45.4 D MCV 97.2 H MCH 32.5 MCHC 33.4 RDW 15.0 Plt Count 292 MPV 8.3 Sodium 138 Potassium 4.0 Chloride 102 Carbon Dioxide 30 Anion Gap 6 L BUN 20.3 H Creatinine 1.2 Est GFR (CKD-EPI)AfAm 74.14 Est GFR (CKD-EPI)NonAf 63.97 Random Glucose 104 Calcium 9.5 Total Bilirubin 0.4 AST 72 H ALT 30 Alkaline Phosphatase 129 H Total Protein 8.7 H Albumin 3.5 RPR Titer Nonreactive HIV 1&2 Ag/Ab, 4th Gen 08/17/19 08:45 WBC RBC Hgb Hct MCV MCH MCHC RDW Plt Count MPV Sodium Potassium Chloride Carbon Dioxide Anion Gap BUN Creatinine Est GFR (CKD-EPI)AfAm Est GFR (CKD-EPI)NonAf Random Glucose Calcium Total Bilirubin AST ALT Alkaline Phosphatase Total Protein Albumin RPR Titer HIV 1&2 Ag/Ab, 4th Gen Non reactive LABS NOTED. Assessment: 08/19/19 17:47 WITHDRAWAL SYMPTOMS. ELEVATED ALKALINE PHOSPHATASE LEVEL. ELEVATED AST LEVEL. Plan: CONTINUE DETOX. ENSURE PO FOR CALORIC SUPPLEMENTATION.
[2019-08-19] MEDS: THIAMINE HCL 100 MG TABLET (FP) PO SCH (22:12)
[2019-08-19] MEDS: QUEtiapine FUMARATE 50 MG TABLET PO SCH (22:12)
[2019-08-20] MEDS ORDERED: METHADONE HCL 10 MG TABLET ONE (04:19)
[2019-08-20] MEDS ORDERED: METHADONE HCL 40 MG DISPERSABLE TABLET ONE (04:20)
[2019-08-20] MEDS: chlordiazePOXIDE HCL 10 MG CAPSULE PO SCH ×2 (06:03→17:49)
[2019-08-20] MEDS: METHADONE 80 MG, METHADONE 10 MG PO SCH (06:03)
[2019-08-20] MEDS: PRENATAL VITAMINS W/ FOLIC ACID TABLET (FP) PO SCH (10:33)
[2019-08-20] MEDS: amLODIPine BESYLATE 10 MG TABLET (FP) PO SCH (10:33)
[2019-08-20] MEDS: LISINOPRIL 10 MG TABLET (FP) PO SCH ×2 (10:33→22:18)
--- NOTE | 2019-08-20 12:46 | PN ---
S CIWA - CIWA Score Nausea/Vomitin-No Nausea/No Vomiting Muscle Tremors: None Anxiety: 2 Agitation: 0-Normal Activity Paroxysmal Sweats: 2 Orientation: 0-Oriented Tacttile Disturbances: 0-None Auditory Disturbances: 0-None Visual Disturbances: 0-None Headache: 0-None Present CIWA-Ar Total Score: 4 BHS Progress Note (SOAP) Subjective: c/o sweats and anxiety. Objective: 08/20/19 12:45 Vital Signs 08/20/19 08/20/19 07:01 09:32 Temperature 97.7 F 97.0 F L Pulse Rate 79 75 Respiratory 18 16 Rate Blood Pressure 101/61 133/69 Lab Results WBC 6.3 K/mm3 (4.0-10.0) 08/17/19 08:45 RBC 4.67 M/mm3 (4.00-5.60) 08/17/19 08:45 Hgb 15.2 GM/dL (11.7-16.9) 08/17/19 08:45 Hct 45.4 % (35.4-49) D 08/17/19 08:45 MCV 97.2 fl (80-96) H 08/17/19 08:45 MCHC 33.4 g/dl (32.0-35.9) 08/17/19 08:45 RDW 15.0 % (11.9-15.9) 08/17/19 08:45 Plt Count 292 K/MM3 (134-434) 08/17/19 08:45 Sodium 138 mmol/L (136-145) 08/17/19 08:45 Potassium 4.0 mmol/L (3.5-5.1) 08/17/19 08:45 Chloride 102 mmol/L (98-107) 08/17/19 08:45 Carbon Dioxide 30 mmol/L (21-32) 08/17/19 08:45 Anion Gap 6 MMOL/L (8-16) L 08/17/19 08:45 BUN 20.3 mg/dL (7-18) H 08/17/19 08:45 Creatinine 1.2 mg/dL (0.55-1.3) 08/17/19 08:45 Random Glucose 104 mg/dL (74-106) 08/17/19 08:45 Calcium 9.5 mg/dL (8.5-10.1) 08/17/19 08:45 Labs noted. Assessment: 08/20/19 12:45 AOX3, in no acute respiratory distress. Full ROM, ambulating in the unit. Withdrawal symptoms. For d/c tomorrow. Plan: continue detox. D/C in AM.
[2019-08-20] MEDS ORDERED: ONDANSETRON *ODT* 4 MG TABLET SL PRN (18:39)
[2019-08-20] MEDS: THIAMINE HCL 100 MG TABLET (FP) PO SCH (22:17)
[2019-08-20] MEDS: QUEtiapine FUMARATE 50 MG TABLET PO SCH (22:17)
[2019-08-20] MEDS: MELATONIN 5 MG TABLETS PO PRN (22:18)
[2019-08-21] MEDS ORDERED: METHADONE HCL 10 MG TABLET ONE (04:47)
[2019-08-21] MEDS ORDERED: METHADONE HCL 40 MG DISPERSABLE TABLET ONE (04:48)
[2019-08-21] MEDS ORDERED: chlordiazePOXIDE HCL 10 MG CAPSULE PO ONE (05:00)
[2019-08-21] MEDS: METHADONE 80 MG, METHADONE 10 MG PO SCH (05:45)
[2019-08-21 09:50] VITALS: BP 99/63; PULSE 84; TEMP 96.9
--- NOTE | 2019-08-21 13:37 | DS ---
[facility] Detox Discharge Summary Admission Date: 08/16/19 Discharge Date: 08/21/19 - History Present History: Alcohol Dependence, MMTP Additional Comments: Pt is medically cleared and discharge today. Pt completed his detox protocol. Pt is encouraged to follow-up with [facility] outpatient program and also to follow-up with his pmd. Pt verbalized understanding of the information given. Pt is alert and oriented x3 and in no respiratory distress. Pertinent Past History: H/O HTN and alcohol use disorder. - Physical Exam Results Vital Signs: Vital Signs Temperature 96.9 F L 08/21/19 09:20 Pulse Rate 84 08/21/19 09:20 Respiratory Rate 16 08/21/19 09:20 Blood Pressure 99/63 08/21/19 09:20 O2 Sat by Pulse Oximetry (%) Vital Signs 08/21/19 08/21/19 06:37 09:20 Temperature 97.7 F 96.9 F L Pulse Rate 79 84 Respiratory 18 16 Rate Blood Pressure 113/60 99/63 Lab Results WBC 6.3 K/mm3 (4.0-10.0) 08/17/19 08:45 RBC 4.67 M/mm3 (4.00-5.60) 08/17/19 08:45 Hgb 15.2 GM/dL (11.7-16.9) 08/17/19 08:45 Hct 45.4 % (35.4-49) D 08/17/19 08:45 MCV 97.2 fl (80-96) H 08/17/19 08:45 MCHC 33.4 g/dl (32.0-35.9) 08/17/19 08:45 RDW 15.0 % (11.9-15.9) 08/17/19 08:45 Plt Count 292 K/MM3 (134-434) 08/17/19 08:45 Sodium 138 mmol/L (136-145) 08/17/19 08:45 Potassium 4.0 mmol/L (3.5-5.1) 08/17/19 08:45 Chloride 102 mmol/L (98-107) 08/17/19 08:45 Carbon Dioxide 30 mmol/L (21-32) 08/17/19 08:45 Anion Gap 6 MMOL/L (8-16) L 08/17/19 08:45 BUN 20.3 mg/dL (7-18) H 08/17/19 08:45 Creatinine 1.2 mg/dL (0.55-1.3) 08/17/19 08:45 Random Glucose 104 mg/dL (74-106) 08/17/19 08:45 Calcium 9.5 mg/dL (8.5-10.1) 08/17/19 08:45 Labs noted. Pertinent Admission Physical Exam Findings: withdrawal symptoms. - Treatment Hospital Course: Detox Protocol Followed, Detoxed Safely, Responded well, Discharged Condition Good - Medication Discharge Medications: Ambulatory Orders Quetiapine Fumarate [Seroquel -] 50 mg PO HS #30 tablet 04/26/18 Citalopram Hydrobromide [Celexa -] 20 mg PO HS 12/29/18 Amlodipine Besylate [Norvasc -] 10 mg PO DAILY #14 tablet 05/24/19 Lisinopril [Prinivil] 10 mg PO BID #14 tablet 05/24/19 - Diagnosis (1) Alcohol dependence Status: Active (2) Arthritis, shoulder region Status: Chronic (3) GERD (gastroesophageal reflux disease) Status: Chronic Qualifiers: Esophagitis presence: esophagitis presence not specified Qualified Code(s) : K21.9 - Gastro-esophageal reflux disease without esophagitis (4) Hepatitis C carrier Status: Chronic (5) Hypertension Status: Chronic Qualifiers: Hypertension type: essential hypertension Qualified Code(s): I10 - Essential (primary) hypertension (6) Nicotine dependence Status: Chronic Qualifiers: Nicotine product type: cigarettes (7) Methadone maintenance therapy patient Status: Chronic - AMA Did Patient Leave Against Medical Advice: No
== END 2019-08-21 09:30 | disposition home or self-care (01) | DRG 773 ==
LOC: YASAS 10:24 → Y3N 12:08
PROVIDERS: ADMIT Allergy & Immunology; ATTEND Allergy & Immunology
PROC: HZ2ZZZZ Detoxification Services for Substance Abuse Treatment (ICD-10-PCS; principal; 2019-08-16)
DX: F10.230 Alcohol dependence with withdrawal, uncomplicated (principal); F11.20 Opioid dependence, uncomplicated; F17.210 Nicotine dependence, cigarettes, uncomplicated; F19.24 Other psychoactive substance dependence with psychoactive substance-induced mood disorder; F32.9 Major depressive disorder, single episode, unspecified; I10 Essential (primary) hypertension; K21.9 Gastro-esophageal reflux disease without esophagitis; G47.00 Insomnia, unspecified; B18.2 Chronic viral hepatitis C; R94.5 Abnormal results of liver function studies; M19.019 Primary osteoarthritis, unspecified shoulder
CPT/HCPCS: 36415; 80053; 85027; 86593; 87389; J0735; Q0162